=== PATIENT | male | born 1940 | race Caucasian/White ===

== ENCOUNTER 2021-05-07 13:11 | Inpatient (IN) | payer OTHER, SELFPAY ==
--- NOTE | ~2021-05-07 | CT_ITS ---
EXAMINATION: CT HEAD WITHOUT CONTRAST CLINICAL INFORMATION: Change in mental status COMPARISON: None. TECHNIQUE: Contiguous axial imaging was performed from the skull base to vertex without intravenous contrast. This CT examination was performed using dose optimization techniques as appropriate, variously including the following: * Automated exposure control * Adjustment of mA and/or kV according to patient size (this includes techniques or standardized protocols for targeted exams where dose is matched to indication/reason for exam; i.e. extremities or head) Use of iterative reconstruction technique DLP: 1044 mGy-cm. FINDINGS: There is no evidence of acute intracranial hemorrhage or territorial infarction. No abnormal mass effect or midline shift is seen. Calder[place] to white matter differentiation is well preserved. No extra-axial fluid collections are identified. No hydrocephalus. Proportional prominence of the ventricles and sulcal spaces is consistent with mild volume loss. Patchy periventricular and deep white matter hypoattenuation is consistent with mild small vessel ischemic changes. The osseous structures and soft tissues are normal. Mild mucoperiosteal thickening of both maxillary sinuses. The mastoid air cells and visualized portions of the paranasal sinuses are otherwise well aerated. CT/CT head/brain wo con IMPRESSION: No acute intracranial pathology. Mild chronic volume loss with small vessel ischemic change.
--- NOTE | 2021-05-07 13:29 | ECG_ITS ---
Test Reason : SI ATTEMPT Blood Pressure : / mmHG Vent. Rate : 099 BPM Atrial Rate : 099 BPM P-R Int : 156 ms QRS Dur : 080 ms QT Int : 346 ms P-R-T Axes : 026 -19 037 degrees QTc Int : 444 ms Sinus rhythm with Premature atrial complexes Minimal voltage criteria for LVH, may be normal variant ( R in aVL ) RSR' or QR pattern in V1 suggests right ventricular conduction delay Left axis deviation Abnormal ECG No previous ECGs available Referred By: Kathy Jensen Electronically Signed By:CORBIN GARCIA MD
--- NOTE | 2021-05-07 13:31 | ED_ITS ---
HPI - Psych General Chief Complaint: Psychiatric Symptoms Stated Complaint: CRISIS, CUT WRISTS Time Seen by Provider: 05/07/21 13:29 Source: patient and EMS Mode of arrival: EMS Limitations: other (agitation) History of Present Illness MD complaint: suicidal ideation, feels depressed and other (cut wrists with spinner box) Onset (ago): unknown Duration: getting worse History of same: Yes Relieving factors: none Exacerbating factors: none Context: significant life stressor Associated psychiatric symptoms: depression and suicidal ideation Associated symptoms: denies other symptoms Treatments prior to arrival: none If self harm: admits thoughts of self harm, has plan and has acted on plan Details of plan: used spinner box to slit wrists I did it wrong. I am so stupid. Let me out of here and I will get it right next time I will cut myself good or I will jump off of a bridge. My life is shit and I will kill myself. Related Data Home Medications Medication Instructions Recorded Confirmed terazosin 5 mg capsule 5 mg PO BEDTIME 05/07/21 05/07/21 trazodone 100 mg tablet 100 mg PO BEDTIME 05/07/21 05/07/21 Allergies Allergy/AdvReac Type Severity Reaction Status Date / Time Unable to Assess Allergy Verified 05/07/21 13:29 Review of Systems Review of Systems: Constitutional : No Fever, No Chills ENT/Mouth : No Ear Pain, No Nasal Congestion, No sore throat Eyes: No Eye Pain, No Swelling, No Redness Cardiovascular : No Chest Pain, No SOB Respiratory : No Cough, No Sputum, No Dyspnea Gastrointestinal : No Nausea, No Vomiting, No Diarrhea, No Hematochezia, No Melena Genitourinary : No Dysuria, No Urinary Frequency, No Hematuria Musculoskeletal : No Myalgias Skin : No Skin Lesions, No rash Neuro : No Weakness, No Numbness, No Paresthesias, No Dizziness, No Headache Psych : positive Anxiety, positive Depression, positive SI no HI Heme/Lymph: No Lymphadenopathy Endocrine : No Polyuria, No Polydipsia All other systems reviewed and are negative [facility] Past Medical History Medical History (Updated 05/07/21 @ 13:49 by Kathy Jensen DO) Depression Social History Social History (Updated 05/07/21 @ 13:40 by Kathy Jensen DO) Patient Tobacco Use Status: Tobacco use Unknown Advance Directives: No Advance Directives Information Provided: No Physical Exam Vital Signs: Vital Signs: Last Vital Signs Pulse 92 05/07/21 13:45 Resp 20 05/07/21 13:45 BP 187/83 H 05/07/21 13:45 Pulse Ox 99 05/07/21 13:45 Body Mass Index 20.0 Appearance: Alert. Oriented X3. Mild acute distress. Anxious yelling out I want to , just let me . Eyes: Pupils equal, round and reactive to light. ENT: Pharynx normal. Neck: Normal inspection. Neck supple. CVS: Normal heart rate and rhythm. Pulses normal. Respiratory: No respiratory distress. Breath sounds normal. Abdomen: Soft and non-tender. Skin: Skin warm and dry. Normal skin color. Normal skin turgor. Extremities: No lower extremity edema. bilateral wrists macerated superficial abrasions several - bilateral radial pulses intact Neuro: Oriented X 3. No motor deficit. No sensory deficit. CN 2-12 intact Psych: very upset, positive SI - I will kill myself Course Course Course Narrative: Physician observation started at 404pm Patient placed in physician observation because the patient needed more time to go inpatient and is a bedsearch; he is a section 12. At the time observation was started the paul reyes's vitals were stable, patient is alert and oriented but slightly agitated, Neuro: nonfocal, CV RRR, Lungs clear MDM - Psych MDM Narrative Medical decision making narrative: 80 yo male with depression ?BPH he notes he was on lexapro and trazodone but took himself off I'm not sure when - EMS thinks his brother called 911 he reports he is going to as his life is shit and he wants to . He messed up this time and will do it right next time given the chance. At this time will medically clear him - his lacerations are too macerated for stitches will steri strip and update Tdap. Section 12 signed by me. CARE team ordered and planned admit Lab Data Result diagrams: 05/07/21 14:24 05/07/21 14:24 Labs: Lab Results 05/07/21 05/07/21 05/07/21 Range/Units 14:24 14:24 14:24 WBC 6.1 (4.8-10.8) X10*3/uL RBC 3.88 L (4.60-5.80) X10*6/uL Hgb 12.9 L (14.0-18.0) g/dl Hct 36.1 L (42.0-52.0) % MCV 93.0 (80.0-98.0) fL MCH 33.2 H (27.0-33.0) pg MCHC 35.7 (31.0-36.0) g/dl RDW 12.4 (11.0-16.0) % Plt Count 152 L (160-400) X10*3/uL MPV 9.0 L (9.4-12.4) fL Immature Gran % (Auto) 0.2 (0.0-0.4) % Neut % (Auto) 68.9 (45-73) % Lymph % (Auto) 18.9 L (20-40) % [place] % (Auto) 11.3 H (2-11) % Eos % (Auto) 0.2 (0-4) % Baso % (Auto) 0.5 (0-2) % Lymph # (Auto) 1.2 (1.2-4.9) X10*3/uL [place] # (Auto) 0.7 (0.1-1.2) X10*3/uL Eos # (Auto) 0.0 (0.0-0.4) X10*3/uL Baso # (Auto) 0.0 (0.0-0.2) X10*3/uL Abs Immat Gran (auto) 0.01 (0.00-0.03) X10*3/uL Absolute Neuts (auto) 4.2 (2.0-8.3) x10*3/uL Absolute Nucleated RBC 0.000 (0.0-0.012) X10*3/uL Nucleated RBC % (auto) 0.0 (0.0-0.2) /100WBC Sodium 133 L (135-145) mmol/L Potassium 3.9 (3.3-5.1) mmol/L Chloride 102 (96-108) mmol/L Carbon Dioxide 23 (22-29) mmol/L Anion Gap 12 (12-20) BUN 12 (9-16) mg/dL Creatinine 1.01 (0.5-1.4) mg/dL Estim Creat Clear Calc 44.1 Estimated GFR > 60 Random Glucose 98 (60-115) mg/dL Calcium 9.6 (8.4-10.2) mg/dL Magnesium 2.1 (1.6-2.6) mg/dL Total Bilirubin 1.5 H (0.0-1.0) mg/dL Direct Bilirubin 0.6 H (0.0-0.5) mg/dL AST 19 (5-37) U/L ALT 17 (0-40) U/L Alkaline Phosphatase 75 (39-117) U/L Total Protein 6.6 (6.5-8.0) g/dL Albumin 4.1 (3.5-5.0) g/dL TSH 1.40 (0.32-4.0) uIU/mL Urine Color Urine Appearance Urine pH (5.0-8.0) Ur Specific [place] (1.005-1.025) Urine Protein (NEG-TRACE) MG/DL Urine Glucose (UA) (NEG) MG/DL Urine Ketones (NEG) MG/DL Urine Blood (NEG) Urine Nitrite (NEG) Ur Leukocyte Esterase (NEG) Salicylates < 5.0 L (15-30) mg/dL Urine Opiates Screen (Not Detect) Urine Fentanyl Screen (Not Detect) Acetaminophen < 1 (<30) mcg/mL Ur Barbiturates Screen (Not Detect) Ur Phencyclidine Scrn (Not Detect) Ur Amphetamines Screen (Not Detect) U Benzodiazepines Scrn (Not Detect) Urine Cocaine Screen (Not Detect) U Marijuana (THC) Screen (Not Detect) Ethyl Alcohol < 10 mg/dL COVID-19 ([facility]) (Negative) COVID-19 Clin Com 05/07/21 05/07/21 05/07/21 Range/Units 14:25 14:51 14:51 WBC (4.8-10.8) X10*3/uL RBC (4.60-5.80) X10*6/uL Hgb (14.0-18.0) g/dl Hct (42.0-52.0) % MCV (80.0-98.0) fL MCH (27.0-33.0) pg MCHC (31.0-36.0) g/dl RDW (11.0-16.0) % Plt Count (160-400) X10*3/uL MPV (9.4-12.4) fL Immature Gran % (Auto) (0.0-0.4) % Neut % (Auto) (45-73) % Lymph % (Auto) (20-40) % [place] % (Auto) (2-11) % Eos % (Auto) (0-4) % Baso % (Auto) (0-2) % Lymph # (Auto) (1.2-4.9) X10*3/uL [place] # (Auto) (0.1-1.2) X10*3/uL Eos # (Auto) (0.0-0.4) X10*3/uL Baso # (Auto) (0.0-0.2) X10*3/uL Abs Immat Gran (auto) (0.00-0.03) X10*3/uL Absolute Neuts (auto) (2.0-8.3) x10*3/uL Absolute Nucleated RBC (0.0-0.012) X10*3/uL Nucleated RBC % (auto) (0.0-0.2) /100WBC Sodium (135-145) mmol/L Potassium (3.3-5.1) mmol/L Chloride (96-108) mmol/L Carbon Dioxide (22-29) mmol/L Anion Gap (12-20) BUN (9-16) mg/dL Creatinine (0.5-1.4) mg/dL Estim Creat Clear Calc Estimated GFR Random Glucose (60-115) mg/dL Calcium (8.4-10.2) mg/dL Magnesium (1.6-2.6) mg/dL Total Bilirubin (0.0-1.0) mg/dL Direct Bilirubin (0.0-0.5) mg/dL AST (5-37) U/L ALT (0-40) U/L Alkaline Phosphatase (39-117) U/L Total Protein (6.5-8.0) g/dL Albumin (3.5-5.0) g/dL TSH (0.32-4.0) uIU/mL Urine Color YELLOW Urine Appearance CLOUDY Urine pH 8.5 H (5.0-8.0) Ur Specific [place] 1.020 (1.005-1.025) Urine Protein TRACE (NEG-TRACE) MG/DL Urine Glucose (UA) NEG (NEG) MG/DL Urine Ketones 5 (NEG) MG/DL Urine Blood NEG (NEG) Urine Nitrite NEG (NEG) Ur Leukocyte Esterase NEG (NEG) Salicylates (15-30) mg/dL Urine Opiates Screen Not Detected (Not Detect) Urine Fentanyl Screen Not Detected (Not Detect) Acetaminophen (<30) mcg/mL Ur Barbiturates Screen Not Detected (Not Detect) Ur Phencyclidine Scrn Not Detected (Not Detect) Ur Amphetamines Screen Not Detected (Not Detect) U Benzodiazepines Scrn Not Detected (Not Detect) Urine Cocaine Screen Not Detected (Not Detect) U Marijuana (THC) Screen Not Detected (Not Detect) Ethyl Alcohol mg/dL COVID-19 ([facility]) Negative (Negative) COVID-19 Clin Com See Note ECG Data Attestation: I personally reviewed and interpreted this ECG as follows: ECG interpretation date: 05/07/21 ECG interpretation time: 14:42 Interpretation: Rate: 99 Rhythm: NSR [place]: left, LVH Normal P waves. Normal BENJAMÍN. Normal QRS complex. ST T wave : normal no DARLENE qTC: normal prior studies: no acute ischemia The study has been interpreted contemporaneously by me. . Discharge Plan Discharge Clinical Impression: Depression with suicidal ideation Laceration of wrist Qualifiers: Encounter type: initial encounter Laterality: unspecified laterality Qualified Code(s): S61.519A - Laceration without foreign body of unspecified wrist, initial encounter Patient Disposition: Admitted As Inpatient
[2021-05-07 13:45] VITALS: BP 187/83; PULSE 92; RESP 20; O2SAT 99
[2021-05-07] MEDS: Diphth,Pertus(ACell),Tet Adult 0.5 ML SYRINGE IM (13:56)
[2021-05-07 14:31] LABS: Basophils Percent Auto 0.5 % (0-2); Eosinophils Percent Auto 0.2 % (0-4); Hematocrit 36.1 % (42.0-52.0); Hemoglobin 12.9 g/dl (14.0-18.0); Imm Gran Abs Auto 0.01 X10*3/uL (0.00-0.03); Imm Gran Pct Auto 0.2 % (0.0-0.4); Lymphocytes Absolute Auto 1.2 X10*3/uL (1.2-4.9); Lymphocytes Percent Auto 18.9 % (20-40); MANUAL DIFF FLAG NO; Mean Corpuscular HGB Conc 35.7 g/dl (31.0-36.0); Mean Corpuscular Hemoglobin 33.2 pg (27.0-33.0); Monocytes Absolute Auto 0.7 X10*3/uL (0.1-1.2); Monocytes Percent Auto 11.3 % (2-11); Neutrophils Absolute Auto 4.2 x10*3/uL (2.0-8.3); Neutrophils Percent Auto 68.9 % (45-73); Platelet Count 152 X10*3/uL (160-400); Red Blood Count 3.88 X10*6/uL (4.60-5.80); Red Cell Distribution Width 12.4 % (11.0-16.0); White Blood Count 6.1 X10*3/uL (4.8-10.8)
[2021-05-07 14:43] LABS: Ethanol < 10 mg/dL
[2021-05-07 14:46] LABS: Acetaminophen LAB < 1 mcg/mL (<30); Alanine Aminotransferase 17 U/L (0-40); Albumin Level 4.1 g/dL (3.5-5.0); Alkaline Phosphatase 75 U/L (39-117); Anion Gap 12 (12-20); Aspartate Amino Transferase 19 U/L (5-37); Bilirubin Direct 0.6 mg/dL (0.0-0.5); Bilirubin Total 1.5 mg/dL (0.0-1.0); Blood Urea Nitrogen 12 mg/dL (9-16); Calcium 9.6 mg/dL (8.4-10.2); Carbon Dioxide 23 mmol/L (22-29); Chloride 102 mmol/L (96-108); Creatinine Clr Calc Pharmacy 44.1; Estimated Glomerular Filt Rate > 60; Glucose Random 98 mg/dL (60-115); Magnesium 2.1 mg/dL (1.6-2.6); Potassium 3.9 mmol/L (3.3-5.1); Salicylate < 5.0 mg/dL (15-30); Sodium 133 mmol/L (135-145); Total Protein 6.6 g/dL (6.5-8.0)
--- NOTE | 2021-05-07 14:51 | PHA.MEDREC ---
med rec complete. Patient was previously on escitalopram 5 mg, patient has self stopped this med about 2 weeks ago Pharmacy Consult ? Medication Reconciliation Pharmacy has completed the medication reconciliation.
[2021-05-07 14:55] LABS: COVID-19 Test Negative (Negative)
[2021-05-07 14:58] LABS: Appearance Urine CLOUDY; Color Urine YELLOW; Glucose Urine UA NEG (NEG); Leukocyte Esterase Urine NEG (NEG); Nitrite Urine NEG (NEG); PH 8.5 (5.0-8.0); Urine Blood NEG (NEG); Urine Ketones 5 MG/DL (NEG); Urine Protein TRACE MG/DL (NEG-TRACE)
[2021-05-07 15:16] LABS: Amphetamine Screen Urine Not Detected (Not Detect); Barbiturates, Urine Not Detected (Not Detect); Benzodiazepines Screen Urine Not Detected (Not Detect); Cannabinoid Screen Urine Not Detected (Not Detect); Cocaine Screen Urine Not Detected (Not Detect); Fentanyl, urine Not Detected (Not Detect); Opiate Screen Urine Not Detected (Not Detect); Phencyclidine Screen Urine Not Detected (Not Detect)
[2021-05-07] MEDS: LORazepam 0.5 MG TABLET PO (15:21)
[2021-05-07 16:23] VITALS: BP 139/72; PULSE 85; RESP 20; O2SAT 98
[2021-05-07] MEDS: Melatonin 3 MG TABLET 6 MG PO (20:20)
--- NOTE | 2021-05-07 21:39 | PC.NURSE ---
Patient resting comfortably in bed no c/o pain. Will contiue to monitor.
--- NOTE | 2021-05-07 22:08 | MHC.CARE ---
CARE Team conducted an exhaustive geriatric bedsearch with no placement found. CARE Team will continue searching for placement.
--- NOTE | 2021-05-08 01:55 | PC.NURSE ---
Patient resting comfortably in bed awaiting [facility]ero[facility]-psych placement
--- NOTE | 2021-05-08 07:16 | PC.NURSE ---
report taken from dora strong pt here for si w attempt to cut wrist, seen by care team, awaiting [facility] psych bed search. pt appears to be sleeping att, rr even/unlabored. awaiting inpt bed. wctm for dc needs.
[2021-05-08 09:52] VITALS: BP 130/76; PULSE 95; RESP 18; TEMP 36.9; O2SAT 98
[2021-05-08 20:19] VITALS: BP 145/94; PULSE 89
[2021-05-08] MEDS: Doxazosin Mesylate 2 MG TABLET 4 MG PO (20:19)
[2021-05-08 20:22] VITALS: BP 145/94; PULSE 75; RESP 17; TEMP 37.1; O2SAT 98
[2021-05-08] MEDS: QUEtiapine Fumarate 25 MG TABLET PO (20:47)
--- NOTE | 2021-05-08 20:53 | PC.NURSE ---
pt is worried about his medication for hs. pt gets upset and worries easy when he needs to focus on a subject. pt treated with his exchange for terozsin and seroquil for sleep. pt skin warm dry, stead gait. back to bed and needs at bedside and pt is visable on the monitor.
[2021-05-09 03:52] VITALS: BP 126/85; PULSE 103; RESP 16; TEMP 36.8; O2SAT 94
[2021-05-09 12:32] VITALS: BP 138/73; PULSE 85; RESP 17; TEMP 37; O2SAT 98
--- NOTE | 2021-05-09 13:52 | PC.NURSE ---
1215. Pt getting up for the first time since this RN arrival at 7am. Skin PWD except for lacerations on ludivina forearms. Dressings taken down. Lacs are healing well, steristrips intact. Pt repeating SI sentiments I can't cope. I don't have anything to live for. Pt encouraged to take PO fluids and eat something. Getting out of bed to with steady gait and eating almost 100% of meal.
[2021-05-09 15:59] VITALS: BP 135/84; PULSE 77; TEMP 36.7; O2SAT 99
--- NOTE | 2021-05-09 18:27 | PC.NURSE ---
Ambulatory to BR. Steady on feet. Skin pWd. ate 90% of meal.
[2021-05-09] MEDS: QUEtiapine Fumarate 25 MG TABLET PO (20:12)
[2021-05-10 03:16] VITALS: BP 118/67; PULSE 85; RESP 16; TEMP 36.7; O2SAT 96
--- NOTE | 2021-05-10 06:23 | PC.NURSE ---
Patient slept through the night, no distress observed/reported, behavior at time can be loud, med rec completed, pending provider's approval, disposition per care team is section 12 inpatient bed search, VSS, will continue to monitor.
--- NOTE | 2021-05-10 07:29 | PC.NURSE ---
patient appears to remain at rest at present respirations are even and unlabored, patient appears in no distress
[2021-05-10 08:06] VITALS: BP 128/78; PULSE 82; RESP 15; TEMP 36.8; O2SAT 97
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
[2021-05-10] MEDS: QUEtiapine Fumarate 50 MG TABLET PO (20:43)
[2021-05-11 03:35] VITALS: BP 121/72; PULSE 83; RESP 15; TEMP 36.4; O2SAT 97
--- NOTE | 2021-05-11 06:12 | PC.NURSE ---
Patient slept through the night, no distress observed/reported, behavior appropriate, medication compliant, patient's disposition is section 12 inpatient bed search per care team, VSS, will continue to monitor.
--- NOTE | 2021-05-11 07:18 | PC.NURSE ---
patient appears to remain asleep at present respirations are even and unlabored, patient appears in no distress
--- NOTE | 2021-05-11 13:08 | MHC.CARE ---
[facility]. Call to confirm eligibility and in-network facilities, spoke to Radha. Will be covered in full by any facility providing care, has NO preferred or select network. Form required for inpatient admission to be filled out by the accepting hospital.
--- NOTE | 2021-05-11 16:43 | MHC.CARE ---
CARE Team faxed [facility] Notification for pt looking for placement.
[2021-05-11 17:05] VITALS: BP 128/76; PULSE 75; RESP 18; TEMP 36.3; O2SAT 99
[2021-05-11] MEDS: QUEtiapine Fumarate 100 MG TABLET PO (20:07)
[2021-05-12 06:13] VITALS: BP 147/71; PULSE 79; RESP 16; TEMP 36.6; O2SAT 98
--- NOTE | 2021-05-12 06:15 | PC.NURSE ---
Patient slept through the night, no distress observed/reported, behavior calm, isolated, and non-concerning, medication compliant, VS at baseline, disposition per care team is section 12 inpatient bed search, will continue to monitor.
--- NOTE | 2021-05-12 10:22 | PC.NURSE ---
PT OOB TO BR EARLIER. ALERT AND ORIENTED. TO GO TO S1 LATER TODAY.
--- NOTE | 2021-05-12 15:44 | PC.NURSE ---
emil w/RN on S1 pt needs repeat covid test INTERACTIVE DESIGNER on S1 d/t last swab being done on 05/07
--- NOTE | 2021-05-12 15:59 | MHC.CARE ---
1500 Call from [facility], they received notification that patient will be admitted to the unit asking for confirmation, informed patient is in the ED and will be admitted later today.
[2021-05-12 16:10] LABS: COVID-19 Test Negative (Negative)
[2021-05-12 16:45] VITALS: BP 133/84; PULSE 95; RESP 16; TEMP 36.6; O2SAT 98
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
[2021-05-12 19:49] VITALS: BP 131/81; PULSE 96; RESP 19; TEMP 37; O2SAT 96
[2021-05-12] MEDS: QUEtiapine Fumarate 100 MG TABLET PO (20:00)
[2021-05-13 06:00] VITALS: BP 155/81; PULSE 69; RESP 18; TEMP 36.6; O2SAT 98
[2021-05-13 07:00] VITALS: BMI 21.2
[2021-05-13 07:08] LABS: MANUAL DIFF FLAG NO
[2021-05-13 07:13] LABS: Basophils Percent Auto 0.7 % (0-2); Eosinophils Absolute Auto 0.2 X10*3/uL (0.0-0.4); Eosinophils Percent Auto 3.9 % (0-4); Hematocrit 34.4 % (42.0-52.0); Hemoglobin 11.9 g/dl (14.0-18.0); Imm Gran Abs Auto 0.01 X10*3/uL (0.00-0.03); Imm Gran Pct Auto 0.2 % (0.0-0.4); Lymphocytes Absolute Auto 1.9 X10*3/uL (1.2-4.9); Lymphocytes Percent Auto 35.7 % (20-40); Mean Corpuscular HGB Conc 34.6 g/dl (31.0-36.0); Mean Corpuscular Hemoglobin 33.5 pg (27.0-33.0); Mean Corpuscular Volume 96.9 fL (80.0-98.0); Mean Platelet Volume 9.2 fL (9.4-12.4); Monocytes Absolute Auto 0.7 X10*3/uL (0.1-1.2); Monocytes Percent Auto 13.3 % (2-11); Neutrophils Absolute Auto 2.5 x10*3/uL (2.0-8.3); Neutrophils Percent Auto 46.2 % (45-73); Platelet Count 142 X10*3/uL (160-400); Red Blood Count 3.55 X10*6/uL (4.60-5.80); Red Cell Distribution Width 12.6 % (11.0-16.0); White Blood Count 5.4 X10*3/uL (4.8-10.8)
[2021-05-13 07:28] LABS: Alanine Aminotransferase 14 U/L (0-40); Albumin Level 3.5 g/dL (3.5-5.0); Alkaline Phosphatase 72 U/L (39-117); Anion Gap 9 (12-20); Aspartate Amino Transferase 14 U/L (5-37); Bilirubin Total 0.9 mg/dL (0.0-1.0); Blood Urea Nitrogen 18 mg/dL (9-16); Calcium 9.4 mg/dL (8.4-10.2); Carbon Dioxide 27 mmol/L (22-29); Chloride 108 mmol/L (96-108); Cholesterol 150 mg/dL; Creatinine Clr Calc Pharmacy 43.3; Estimated Glomerular Filt Rate > 60; Glucose Fasting 92 mg/dL (60-99); HDL Cholesterol 45 mg/dL; LDL Cholesterol Calculated 97 mg/dl; Magnesium 2.1 mg/dL (1.6-2.6); Potassium 4.3 mmol/L (3.3-5.1); Sodium 140 mmol/L (135-145); Total Protein 5.8 g/dL (6.5-8.0); Triglycerides 42 mg/dL
[2021-05-13 07:48] LABS: Free T4 (Free Thyroxine) 1.26 ng/dL (0.71-1.85); Thyroid Stimulating Hormone 0.78 uIU/mL (0.32-4.0)
[2021-05-13 08:02] LABS: Estimated Average Glucose 97 mg/dL
[2021-05-13 08:54] LABS: Folate 15.8 ng/mL (> or = 4.0); Vitamin B12 441 pg/mL (200-900)
[2021-05-13 16:04] VITALS: BP 175/93; PULSE 85
--- NOTE | 2021-05-13 16:14 | P.HPPS_ITS ---
HPI Date of Service: 05/13/21 Chief Complaint: depression,SI Sources of Information: patient interviewed, chart reviewed and crisis/core team assessment reviewed HPI Subjective Notes: Kaur Warning and Conditional Voluntary Narrative: The patient is an 80-year-old male, single, with no children, retired, living by himself with limited social support referred from the emergency room after a suicidal ideation. The patient reported that he has been depressed for the last years but his symptoms worsened after COVID-19 was started. He stated that his primary care physician has started him on September 2020 on trazodone due to insomnia and later in January 2021 he was more depressed and needed to started on Lexapro. He was referred to an outpatient clinic [facility] and he tried Lexapro with side effects. He took himself off the medication in March. The patient stated that in the last weeks his depression worsened with depressed mood, anhedonia, lack of energy, feelings of hopelessness, feelings of worthlessness, suicidal ideation, insomnia and poor appetite. She started feeling suicidal and he decided to going to a hot tub and cut his veins. The he was unsuccessful and he called his brother who he called 911 and he was rushed to the emergency room. Since he was suicidal now with a plan to hang himself he was transferring to this facility for psychiatric stabilization. During the interview, the patient adamantly denies psychotic symptoms, manic symptoms or any other delusions. He was able to contract for safety in the facility Past Psychiatric History: -Has OP services at [facility]. -Remote hx of being treated for PTSD years ago -Past med trials: Remeron (did not like it), trazadone (intermittent use, initially helpful but stopped working, ?tossing and turning?), lexapro (felt ?shaky,? unable to tolerate it after taking it for a few days non- consecutively), melatonin (lack of benefit over time). Medical Evaluation Reviewed: Yes [facility] Medical History Depression Family History: Denies Social History: -Single. Has 4 siblings. Parents are . Lives in parent?s home. -Retired. 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 Trauma History: The patient was deployed to [place] unclear of PTSD due to combat Diagnostics Vital Signs (24Hr): Vital Signs - 24 hr 05/12/21 16:45 05/12/21 19:49 05/13/21 06:00 Temperature 97.8 F 98.6 F 97.9 F Pulse Rate 95 96 69 Respiratory Rate 16 19 18 Blood Pressure 133/84 131/81 155/81 H Pulse Oximetry 98 96 98 05/13/21 16:04 Temperature Pulse Rate 85 Respiratory Rate Blood Pressure 175/93 H Pulse Oximetry BMI result Body Mass Index 20.0 Labs Results: 05/13/21 07:03 05/13/21 07:03 Labs: Laboratory Results - last 48 hr 05/12/21 05/13/21 05/13/21 15:48 07:03 07:03 WBC 5.4 RBC 3.55 L Hgb 11.9 L Hct 34.4 L MCV 96.9 MCH 33.5 H MCHC 34.6 RDW 12.6 Plt Count 142 L MPV 9.2 L Immature Gran % (Auto) 0.2 Neut % (Auto) 46.2 Lymph % (Auto) 35.7 Gilliam % (Auto) 13.3 H Eos % (Auto) 3.9 Baso % (Auto) 0.7 Lymph # (Auto) 1.9 Gilliam # (Auto) 0.7 Eos # (Auto) 0.2 Baso # (Auto) 0.0 Abs Immat Gran (auto) 0.01 Absolute Neuts (auto) 2.5 Absolute Nucleated RBC 0.000 Nucleated RBC % (auto) 0.0 Sodium 140 Potassium 4.3 Chloride 108 Carbon Dioxide 27 Anion Gap 9 L BUN 18 H Creatinine 1.03 Estim Creat Clear Calc 43.3 Estimated GFR > 60 Fasting Glucose 92 Estimat Average Glucose Hemoglobin A1c % Calcium 9.4 Magnesium 2.1 Total Bilirubin 0.9 AST 14 ALT 14 Alkaline Phosphatase 72 Total Protein 5.8 L Albumin 3.5 Triglycerides 42 Cholesterol 150 LDL Cholesterol, Calc 97 HDL Cholesterol 45 Vitamin B12 Folate TSH 0.78 Free T4 1.26 COVID-19 ([facility]) Negative COVID-19 Clin Com See Note 05/13/21 05/13/21 07:03 07:03 WBC RBC Hgb Hct MCV MCH MCHC RDW Plt Count MPV Immature Gran % (Auto) Neut % (Auto) Lymph % (Auto) Gilliam % (Auto) Eos % (Auto) Baso % (Auto) Lymph # (Auto) Gilliam # (Auto) Eos # (Auto) Baso # (Auto) Abs Immat Gran (auto) Absolute Neuts (auto) Absolute Nucleated RBC Nucleated RBC % (auto) Sodium Potassium Chloride Carbon Dioxide Anion Gap BUN Creatinine Estim Creat Clear Calc Estimated GFR Fasting Glucose Estimat Average Glucose 97 Hemoglobin A1c % 5.0 Calcium Magnesium Total Bilirubin AST ALT Alkaline Phosphatase Total Protein Albumin Triglycerides Cholesterol LDL Cholesterol, Calc HDL Cholesterol Vitamin B12 441 Folate 15.8 TSH Free T4 COVID-19 ([facility]) COVID-19 Clin Com Meds/Allergies Meds Home Medications Acetaminophen (Acetaminophen 325 Mg Tablet) 650 mg PO Q6H PRN PRN Reason: Headache/Pain Mild Scale (1-3) Al Hydroxide/Mg Hydroxide (Magnesium Hydrox/Alum Hydrox 30 Ml Oral.Susp) 30 ml PO Q6H PRN PRN Reason: Heartburn/Nausea Hydroxyzine HCl (Hydroxyzine Hcl 25 Mg Tablet) 25 mg PO Q6H PRN PRN Reason: Anxiety Magnesium Hydroxide (Milk Of Magnesia 30 Ml Oral.Susp) 30 ml PO DAILY PRN PRN Reason: Constipation Patient Own (Terazosin 5 Mg) 1 each PO DAILY [facility] Last Admin: 05/13/21 09:12 Dose: Not Given Documented by: Quetiapine Fumarate (Quetiapine Fumarate 100 Mg Tablet) 100 mg PO BEDTIME [facility] Last Admin: 05/12/21 20:00 Dose: 100 mg Documented by: Trazodone HCl (Trazodone Hcl 50 Mg Tablet) 50 mg PO BEDTIME PRN PRN Reason: Insomnia Allergies Allergies Allergy/AdvReac Type Severity Reaction Status Date / Time No Known Allergies Allergy Verified 05/10/21 08:40 Mental Status Exam Mental Status Exam Patient Appearance: Well Grooomed Patient Orientation: Person, Place, Time and Situation Level of Consciousness: Awake and Alert Patient Behavior: Cooperative Mood Description: Depressed Affect Description: Constricted Patient Cognition Impaired: No Ability to Follow Directions: Good Speech Pattern: Clear Hallucinations: None Delusions: Not Present Thought Process: Linear Thought Content: positive for Circumstantial Depressive Symptoms: Increased Anxiety, Insomnia, Diff. Making Decisions, Increased Irritability, Feelings of Worthlessness, Feelings of Guilt and Thoughts of /Suicide Judgement: Fair Assessment & Plan Assessment & Plan (1) MDD (major depressive disorder), recurrent severe, without psychosis: Status: Acute Code(s): F33.2 - Major depressive disorder, recurrent severe without psychotic features Assessment and Plan: The patient is an elderly male with a long history of anxiety and depression that worsened in the last months due to noncompliance to Lexapro. The patient stop Lexapro due to side effects. The patient has active suicidal ideation he needs inpatient level of care at this moment. Plan 1. Gather collateral information. 2. We discussed risks, benefits, side-effects and alternatives to he agreed to start nortriptyline 10 mg p.o. q.h.s. to target depression and insomnia. 3. Continue Seroquel 100 mg p.o. q.h.s. to target insomnia and mood lability. 4. Eli globe in A1c, lipid profile and other blood work will be ordered for tomorrow morning. 5. Reassessment with results. Reason for continued inpatient stay Substantial Risk for: harm to self, inability to function, rapid decompensation and med/psych decompensation
[2021-05-13 19:56] VITALS: BP 123/65; PULSE 84; RESP 17; TEMP 36.1
[2021-05-13] MEDS: traZODone HCL 50 MG TABLET PO (20:56)
[2021-05-13] MEDS: QUEtiapine Fumarate 100 MG TABLET PO (20:56)
[2021-05-14 06:00] VITALS: BP 135/80; PULSE 80; RESP 16; TEMP 36.6; O2SAT 98
--- NOTE | 2021-05-14 13:32 | MHC.CLN ---
F/U VISITED WITH PATIENT. SNACKING AFTER LUNCH. REPORTS GOOD APPETITE. APPEARS WELL NOURISHED.
--- NOTE | 2021-05-14 14:08 | P.PNPSI_ITS ---
Subjective Subjective Date of Service: 05/14/21 Reason For Visit: depression,SI Subjective Notes: Conditional Voluntary Interim History: The nursing staff reported the patient slept poorly last night he took some trazodone but it did not work at all. His brother called and demanded to stop trazodone since it was not good for him . On interview, the patient admitted for sleep but he agreed to start Pamelor at night to target depression and insomnia. Mental Status Exam Mental Status Exam Patient Appearance: Well Grooomed Patient Orientation: Person Level of Consciousness: Awake Patient Behavior: Cooperative and Suspicious Mood Description: Depressed Affect Description: Constricted Patient Cognition Impaired: No Speech Pattern: Clear Memory Description: Intact Hallucinations: None Delusions: Not Present Thought Content: positive for Linear Depressive Symptoms: Increased Irritability, Difficulty Sleeping and Changes in Appetite Judgement: Fair Diagnostics Vital Signs (24Hr): Vital Signs - 24 hr 05/13/21 16:04 05/13/21 19:56 05/14/21 06:00 Temperature 97 F 97.9 F Pulse Rate 85 84 80 Respiratory Rate 17 16 Blood Pressure 175/93 H 123/65 135/80 Pulse Oximetry 98 BMI result Body Mass Index 20.0 Labs Results: 05/13/21 07:03 05/13/21 07:03 Labs: Laboratory Results - last 48 hr 05/12/21 05/13/21 05/13/21 15:48 07:03 07:03 WBC 5.4 RBC 3.55 L Hgb 11.9 L Hct 34.4 L MCV 96.9 MCH 33.5 H MCHC 34.6 RDW 12.6 Plt Count 142 L MPV 9.2 L Immature Gran % (Auto) 0.2 Neut % (Auto) 46.2 Lymph % (Auto) 35.7 [place] % (Auto) 13.3 H Eos % (Auto) 3.9 Baso % (Auto) 0.7 Lymph # (Auto) 1.9 [place] # (Auto) 0.7 Eos # (Auto) 0.2 Baso # (Auto) 0.0 Abs Immat Gran (auto) 0.01 Absolute Neuts (auto) 2.5 Absolute Nucleated RBC 0.000 Nucleated RBC % (auto) 0.0 Sodium 140 Potassium 4.3 Chloride 108 Carbon Dioxide 27 Anion Gap 9 L BUN 18 H Creatinine 1.03 Estim Creat Clear Calc 43.3 Estimated GFR > 60 Fasting Glucose 92 Estimat Average Glucose Hemoglobin A1c % Calcium 9.4 Magnesium 2.1 Total Bilirubin 0.9 AST 14 ALT 14 Alkaline Phosphatase 72 Total Protein 5.8 L Albumin 3.5 Triglycerides 42 Cholesterol 150 LDL Cholesterol, Calc 97 HDL Cholesterol 45 Vitamin B12 Folate TSH 0.78 Free T4 1.26 COVID-19 ([facility]) Negative COVID-19 Clin Com See Note 05/13/21 05/13/21 07:03 07:03 WBC RBC Hgb Hct MCV MCH MCHC RDW Plt Count MPV Immature Gran % (Auto) Neut % (Auto) Lymph % (Auto) [place] % (Auto) Eos % (Auto) Baso % (Auto) Lymph # (Auto) [place] # (Auto) Eos # (Auto) Baso # (Auto) Abs Immat Gran (auto) Absolute Neuts (auto) Absolute Nucleated RBC Nucleated RBC % (auto) Sodium Potassium Chloride Carbon Dioxide Anion Gap BUN Creatinine Estim Creat Clear Calc Estimated GFR Fasting Glucose Estimat Average Glucose 97 Hemoglobin A1c % 5.0 Calcium Magnesium Total Bilirubin AST ALT Alkaline Phosphatase Total Protein Albumin Triglycerides Cholesterol LDL Cholesterol, Calc HDL Cholesterol Vitamin B12 441 Folate 15.8 TSH Free T4 COVID-19 ([facility]) COVID-19 Clin Com Medications Medications Current Medications Acetaminophen (Acetaminophen 325 Mg Tablet) 650 mg PO Q6H PRN PRN Reason: Headache/Pain Mild Scale (1-3) Al Hydroxide/Mg Hydroxide (Magnesium Hydrox/Alum Hydrox 30 Ml Oral.Susp) 30 ml PO Q6H PRN PRN Reason: Heartburn/Nausea Hydroxyzine HCl (Hydroxyzine Hcl 25 Mg Tablet) 25 mg PO Q6H PRN PRN Reason: Anxiety Magnesium Hydroxide (Milk Of Magnesia 30 Ml Oral.Susp) 30 ml PO DAILY PRN PRN Reason: Constipation Patient Own (Terazosin 5 Mg) 1 each PO DAILY [facility] Last Admin: 05/14/21 10:16 Dose: Not Given Documented by: Nortriptyline HCl (Nortriptyline Hcl 10 Mg Capsule) 10 mg PO BEDTIME [facility] Quetiapine Fumarate (Quetiapine Fumarate 100 Mg Tablet) 100 mg PO BEDTIME [facility] Last Admin: 05/13/21 20:56 Dose: 100 mg Documented by: Allergies Allergies Allergy/AdvReac Type Severity Reaction Status Date / Time No Known Allergies Allergy Verified 05/10/21 08:40 Assessment & Plan Assessment & Plan (1) MDD (major depressive disorder), recurrent severe, without psychosis: Status: Acute Code(s): F33.2 - Major depressive disorder, recurrent severe without psychotic features Assessment and Plan: The patient is an elderly male with a long history of anxiety and depression that worsened in the last months due to noncompliance to Lexapro. The patient stop Lexapro due to side effects. The patient has active suicidal ideation he needs inpatient level of care at this moment. Plan 1. Gather collateral information. 2. We discussed risks, benefits, side-effects and alternatives to he agreed to start nortriptyline 10 mg p.o. q.h.s. to target depression and insomnia. 3. Continue Seroquel 100 mg p.o. q.h.s. to target insomnia and mood lability. 4. E hemoglobin A1c, lipid profile and other blood work will be ordered for tomorrow morning. 5. Reassessment with results. I spent minutes with the patient and/or on the patient floor today, greater than?50% of which was spent counseling/coordinating care. Reason for contiued inpatient stay Substantial Risk for: harm to self, inability to function, rapid decompensation and med/psych decompensation
[2021-05-14 18:00] VITALS: BP 113/74; PULSE 101; O2SAT 97
[2021-05-14] MEDS: Nortriptyline HCl 10 MG CAPSULE PO (20:16)
[2021-05-14] MEDS: QUEtiapine Fumarate 100 MG TABLET PO (20:16)
[2021-05-15 08:34] VITALS: BP 136/72; PULSE 98; RESP 16; TEMP 36.7; O2SAT 99
--- NOTE | 2021-05-15 13:59 | P.PNPSI_ITS ---
Subjective Subjective Date of Service: 05/15/21 Reason For Visit: depression,SI Subjective Notes: Conditional Voluntary Medical Problems Affecting Mental Status: No Interim History: Patient pleasant and engaged during interview. Reports kiley dalton depressed and anxious with intermittent hopelessness and thoughts of . No active SI. Talked about severe depression over the last year so with intermittent relief and suicide attempt preceding this admission. Talked about isolation, COVID, insomnia and also the of his bird that he had for 29 years. Sleep was better last night with nortriptyline and thankful for same. For a nonverbal and medications. Is a little brighter today as per staff. no psychosis. Reports feeling safe here, but that he has a long way to go mood wasserman, functioning etc. . Reports even taking a shower seems like a huge decision for him. Medication Compliance: Yes Side effects from medications: No Attending Groups: Yes Review of Systems Acute medical concerns: No Review of Systems Review of Systems Unremarkable Mental Status Exam Mental Status Exam Patient Appearance: Well Grooomed Patient Orientation: Person Level of Consciousness: Awake Patient Behavior: Appropriate Mood Description: Depressed Affect Description: Constricted Patient Cognition Impaired: No Ability to Follow Directions: Good Speech Pattern: Clear Memory Description: Intact Diagnostics Vital Signs (24Hr): Vital Signs - 24 hr 05/14/21 18:00 05/15/21 08:34 Temperature 98.0 F Pulse Rate 101 H 98 Respiratory Rate 16 Blood Pressure 113/74 136/72 Pulse Oximetry 97 99 BMI result Body Mass Index 20.0 Labs Results: 05/13/21 07:03 05/13/21 07:03 Medications Medications Current Medications Acetaminophen (Acetaminophen 325 Mg Tablet) 650 mg PO Q6H PRN PRN Reason: Headache/Pain Mild Scale (1-3) Al Hydroxide/Mg Hydroxide (Magnesium Hydrox/Alum Hydrox 30 Ml Oral.Susp) 30 ml PO Q6H PRN PRN Reason: Heartburn/Nausea Hydroxyzine HCl (Hydroxyzine Hcl 25 Mg Tablet) 25 mg PO Q6H PRN PRN Reason: Anxiety Magnesium Hydroxide (Milk Of Magnesia 30 Ml Oral.Susp) 30 ml PO DAILY PRN PRN Reason: Constipation Patient Own Med (Terazosin 5) 1 each PO DAILY@1830 [facility] Last Admin: 05/14/21 18:26 Dose: 1 each Documented by: Nortriptyline HCl (Nortriptyline Hcl 10 Mg Capsule) 10 mg PO BEDTIME [facility] Last Admin: 05/14/21 20:16 Dose: 10 mg Documented by: Psyllium Hydrophilic Mucilloid (Psyllium Seed 3.4 Gm Powd.Pack) 3.4 gm PO DAILY [facility] Last Admin: 05/15/21 07:58 Dose: 3.4 gm Documented by: Quetiapine Fumarate (Quetiapine Fumarate 100 Mg Tablet) 100 mg PO BEDTIME [facility] Last Admin: 05/14/21 20:16 Dose: 100 mg Documented by: Allergies Allergies Allergy/AdvReac Type Severity Reaction Status Date / Time No Known Allergies Allergy Verified 05/10/21 08:40 Assessment & Plan Assessment & Plan (1) MDD (major depressive disorder), recurrent severe, without psychosis: Status: Acute Code(s): F33.2 - Major depressive disorder, recurrent severe without psychotic features Assessment and Plan: The patient is an elderly male with a long history of anxiety and depression that worsened in the last months due to noncompliance to Lexapro. The patient stop Lexapro due to side effects. The patient has active suicidal ideation he needs inpatient level of care at this moment. Plan 1. Gather collateral information. 2. We discussed risks, benefits, side-effects and alternatives to he agreed to start nortriptyline 10 mg p.o. q.h.s. to target depression and insomnia. 3. Continue Seroquel 100 mg p.o. q.h.s. to target insomnia and mood lability. 4. E hemoglobin A1c, lipid profile and other blood work will be ordered for tomorrow morning. 5. Reassessment with results. 05/15/2021: No changes to primary team treatment plan and appears to be showing some response to current regimen with sleep I spent minutes with the patient and/or on the patient floor today, grea ter than?50% of which was spent counseling/coordinating care. Reason for contiued inpatient stay Substantial Risk for: harm to self
[2021-05-15 18:00] VITALS: BP 109/78; PULSE 81; TEMP 37.2; O2SAT 97
[2021-05-15] MEDS: Nortriptyline HCl 10 MG CAPSULE PO (20:10)
[2021-05-15] MEDS: QUEtiapine Fumarate 100 MG TABLET PO (20:10)
[2021-05-16 06:00] VITALS: BP 133/80; PULSE 99; RESP 16; TEMP 36.7; O2SAT 98
--- NOTE | 2021-05-16 10:34 | P.PNPSI_ITS ---
Subjective Subjective Date of Service: 05/16/21 Reason For Visit: depression,SI Subjective Notes: Conditional Voluntary Medical Problems Affecting Mental Status: No Interim History: Enaged and participating as per staff. Slept well. Still has anxiety and reports depression with intermittent hopelessness and thoughts of . No active SI. Sleep was better last night with nortriptyline and thankful for same and reports feeling less groggy today. Appetite good. Attending groups. . No psychosis. Reports feeling safe here, but that he has a long way to go mood wasserman, functioning etc. Hoping to shower today I think I can do it, its been 3 days . Medication Compliance: Yes Side effects from medications: No Attending Groups: Yes Review of Systems Review of Systems Unremarkable Mental Status Exam Mental Status Exam Patient Appearance: Well Grooomed Patient Orientation: Person Level of Consciousness: Awake Patient Behavior: Appropriate Mood Description: Depressed Affect Description: Constricted Patient Cognition Impaired: No Ability to Follow Directions: Good Speech Pattern: Clear Memory Description: Intact Hallucinations: None Delusions: Not Present Thought Process: Intact Thought Content: positive for Intact Diagnostics Vital Signs (24Hr): Vital Signs - 24 hr 05/15/21 18:00 05/16/21 06:00 Temperature 99.0 F 98.0 F Pulse Rate 81 99 Respiratory Rate 16 Blood Pressure 109/78 133/80 Pulse Oximetry 97 98 BMI result Body Mass Index 20.0 Labs Results: 05/13/21 07:03 05/13/21 07:03 Medications Medications Current Medications Acetaminophen (Acetaminophen 325 Mg Tablet) 650 mg PO Q6H PRN PRN Reason: Headache/Pain Mild Scale (1-3) Al Hydroxide/Mg Hydroxide (Magnesium Hydrox/Alum Hydrox 30 Ml Oral.Susp) 30 ml PO Q6H PRN PRN Reason: Heartburn/Nausea Hydroxyzine HCl (Hydroxyzine Hcl 25 Mg Tablet) 25 mg PO Q6H PRN PRN Reason: Anxiety Magnesium Hydroxide (Milk Of Magnesia 30 Ml Oral.Susp) 30 ml PO DAILY PRN PRN Reason: Constipation Patient Own Med (Terazosin 5) 1 each PO DAILY@1830 [facility]PL[facility] Last Admin: 05/15/21 17:20 Dose: 1 each Documented by: Nortriptyline HCl (Nortriptyline Hcl 10 Mg Capsule) 10 mg PO BEDTIME [facility] Last Admin: 05/15/21 20:10 Dose: 10 mg Documented by: Psyllium Hydrophilic Mucilloid (Psyllium Seed 3.4 Gm Powd.Pack) 3.4 gm PO DAILY [facility] Last Admin: 05/16/21 08:04 Dose: 3.4 gm Documented by: Quetiapine Fumarate (Quetiapine Fumarate 100 Mg Tablet) 100 mg PO BEDTIME [facility]PL[facility] Last Admin: 05/15/21 20:10 Dose: 100 mg Documented by: Allergies Allergies Allergy/AdvReac Type Severity Reaction Status Date / Time No Known Allergies Allergy Verified 05/10/21 08:40 Assessment & Plan Assessment & Plan (1) MDD (major depressive disorder), recurrent severe, without psychosis: Status: Acute Code(s): F33.2 - Major depressive disorder, recurrent severe without psychotic features Assessment and Plan: The patient is an elderly male with a long history of anxiety and depression that worsened in the last months due to noncompliance to Lexapro. The patient stop Lexapro due to side effects. The patient has active suicidal ideation he needs inpatient level of care at this moment. Plan 1. Gather collateral information. 2. We discussed risks, benefits, side-effects and alternatives to he agreed to start nortriptyline 10 mg p.o. q.h.s. to target depression and insomnia. 3. Continue Seroquel 100 mg p.o. q.h.s. to target insomnia and mood lability. 4. E hemoglobin A1c, lipid profile and other blood work will be ordered for tomorrow morning. 5. Reassessment with results. 05/16/2021: No changes to primary team treatment plan and appears to be showing some response to current regimen with sleep I spent minutes with the patient and/or on the patient floor today, greater than?50% of which was spent counseling/coordinating care. Reason for contiued inpatient stay Substantial Risk for: harm to self
[2021-05-16] MEDS: hydrOXYzine HCL 25 MG TABLET PO (14:05)
--- NOTE | 2021-05-16 15:01 | PC.NURSE ---
Patient sought out this voice writing reporter at approximately 1400 endorsing anxiety r/t upcoming visit from brother and niece. Patient stated, I'm nervous about seeing them because they don't understand how I feel. Patient went on to state that he was having a good day and all of a sudden his depression and anxiety got the better of him . We talked for approximately 30 min. Patient was reassured there would be someone available to talk whenever he felt the need and that [place] [facility] [place] was stable and had services in place. Patient was medicated with Atarax 25 mg and went to [facility] to watch tv in recliner.
[2021-05-16 18:00] VITALS: BP 139/74; PULSE 95; RESP 18; TEMP 37.1; O2SAT 99
[2021-05-16] MEDS: QUEtiapine Fumarate 100 MG TABLET PO (20:54)
[2021-05-16] MEDS: Nortriptyline HCl 10 MG CAPSULE PO (20:54)
[2021-05-17 09:27] VITALS: BP 137/80; PULSE 96; TEMP 36.1; O2SAT 98
--- NOTE | 2021-05-17 11:52 | MHC.CLN ---
F/U PATIENT APPEARS TO BE EATING WELL. RD TO FOLLOW WEEKLY.
--- NOTE | 2021-05-17 12:42 | HO.PSYCHPN ---
Subjective Subjective Date of Service: 05/17/21 Reason For Visit: depression,SI Subjective Notes: Conditional Voluntary Interim History: The nursing staff reported that the patient has complained of racing thoughts and he is unable to concentrate. He has been sleeping much better with Seroquel 100 mg and Pamelor. On interview, the patient denies manic symptoms he feels that his level of concentration is very poor but he is slightly over-sedated in the morning Mental Status Exam Mental Status Exam Patient Appearance: Well Grooomed Patient Orientation: Person Level of Consciousness: Awake Patient Behavior: Guarded and Suspicious Mood Description: Constricted and Depressed Affect Description: Constricted Patient Cognition Impaired: No Ability to Follow Directions: Good Speech Pattern: Clear and Appropriate Delusions: Not Present Thought Process: Linear and Slowed Thinking Thought Content: positive for Circumstantial and positive for Poverty of Content Depressive Symptoms: Diff. Making Decisions, Difficulty Sleeping, Sleeping More Than Usual and Feelings of Worthlessness Abnormal Motor Activity Signs and Symptoms: Psychomotor Retardation Judgement: Fair Diagnostics Vital Signs (24Hr): Vital Signs - 24 hr 05/16/21 18:00 05/17/21 09:27 Temperature 98.8 F 97 F Pulse Rate 95 96 Respiratory Rate 18 Blood Pressure 139/74 137/80 Pulse Oximetry 99 98 BMI result Body Mass Index 20.0 Labs Results: 05/13/21 07:03 05/13/21 07:03 Medications Medications Current Medications Acetaminophen (Acetaminophen 325 Mg Tablet) 650 mg PO Q6H PRN PRN Reason: Headache/Pain Mild Scale (1-3) Al Hydroxide/Mg Hydroxide (Magnesium Hydrox/Alum Hydrox 30 Ml Oral.Susp) 30 ml PO Q6H PRN PRN Reason: Heartburn/Nausea Hydroxyzine HCl (Hydroxyzine Hcl 25 Mg Tablet) 25 mg PO Q6H PRN PRN Reason: Anxiety Last Admin: 05/16/21 14:05 Dose: 25 mg Documented by: Magnesium Hydroxide (Milk Of Magnesia 30 Ml Oral.Susp) 30 ml PO DAILY PRN PRN Reason: Constipation Patient Own Med (Terazosin 5) 1 each PO DAILY@1830 [facility] Last Admin: 05/16/21 18:22 Dose: 1 each Documented by: Nortriptyline HCl (Nortriptyline Hcl 10 Mg Capsule) 10 mg PO BEDTIME [facility] Last Admin: 05/16/21 20:54 Dose: 10 mg Documented by: Psyllium Hydrophilic Mucilloid (Psyllium Seed 3.4 Gm Powd.Pack) 3.4 gm PO DAILY [facility] Last Admin: 05/17/21 08:07 Dose: 3.4 gm Documented by: Quetiapine Fumarate (Quetiapine Fumarate 100 Mg Tablet) 100 mg PO BEDTIME [facility] Last Admin: 05/16/21 20:54 Dose: 100 mg Documented by: Allergies Allergies Allergy/AdvReac Type Severity Reaction Status Date / Time No Known Allergies Allergy Verified 05/10/21 08:40 Assessment & Plan Assessment & Plan (1) MDD (major depressive disorder), recurrent severe, without psychosis: Status: Acute Code(s): F33.2 - Major depressive disorder, recurrent severe without psychotic features Assessment and Plan: The patient is an elderly male with a long history of anxiety and depression that worsened in the last months due to noncompliance to Lexapro. The patient stop Lexapro due to side effects. The patient has active suicidal ideation he needs inpatient level of care at this moment. Plan 1. Gather collateral information. 2. We discussed risks, benefits, side-effects and alternatives to he agreed to start nortriptyline 10 mg p.o. q.h.s. to target depression and insomnia. 3. Continue Seroquel 100 mg p.o. q.h.s. to target insomnia and mood lability. 4. Increase Pamelor up to 25 mg p.o. q.h.s. to target depression and insomnia. I spent minutes with the patient and/or on the patient floor today, greater than?50% of which was spent counseling/coordinating care. Reason for contiued inpatient stay Substantial Risk for: harm to self, inability to function, rapid decompensation and med/psych decompensation
[2021-05-17 18:00] VITALS: BP 139/86; PULSE 86; RESP 16; TEMP 37.1; O2SAT 98
[2021-05-17] MEDS: Magnesium Hydrox/Alum Hydrox 30 ML ORAL.SUSP PO (19:35)
[2021-05-17] MEDS: QUEtiapine Fumarate 100 MG TABLET PO (21:12)
[2021-05-17] MEDS: Nortriptyline HCl 25 MG CAPSULE PO (21:14)
[2021-05-18 09:44] VITALS: BP 109/74; PULSE 71; RESP 16; TEMP 36.4; O2SAT 96
--- NOTE | 2021-05-18 16:14 | HO.PSYCHPN ---
Subjective Subjective Date of Service: 05/18/21 Reason For Visit: depression,SI Subjective Notes: Conditional Voluntary Interim History: The nursing staff reported that the patient could not sleep very well last night. A relative called the outreach and education social worker and reported and strong family history of depression and anxiety from her mother's side. On interview, the patient reports poor sleep and mild anxiety, still dysphoric with no active suicidal ideation Mental Status Exam Mental Status Exam Patient Appearance: Well Grooomed Patient Orientation: Person Level of Consciousness: Awake Patient Behavior: Cooperative Mood Description: Depressed Affect Description: Constricted Patient Cognition Impaired: No Ability to Follow Directions: Good Speech Pattern: Clear Hallucinations: None Delusions: Not Present Thought Process: Goal Oriented Thought Content: positive for Circumstantial Depressive Symptoms: Insomnia, Difficulty Sleeping, Significant Weight Loss, Feelings of Worthlessness and Feelings of Guilt Judgement: Fair Diagnostics Vital Signs (24Hr): Vital Signs - 24 hr 05/17/21 18:00 05/18/21 09:44 Temperature 98.7 F 97.5 F Pulse Rate 86 71 Respiratory Rate 16 16 Blood Pressure 139/86 109/74 Pulse Oximetry 98 96 BMI result Body Mass Index 20.0 Labs Results: 05/13/21 07:03 05/13/21 07:03 Medications Medications Current Medications Acetaminophen (Acetaminophen 325 Mg Tablet) 650 mg PO Q6H PRN PRN Reason: Headache/Pain Mild Scale (1-3) Al Hydroxide/Mg Hydroxide (Magnesium Hydrox/Alum Hydrox 30 Ml Oral.Susp) 30 ml PO Q6H PRN PRN Reason: Heartburn/Nausea Last Admin: 05/17/21 19:35 Dose: 30 ml Documented by: Hydroxyzine HCl (Hydroxyzine Hcl 25 Mg Tablet) 25 mg PO Q6H PRN PRN Reason: Anxiety Last Admin: 05/16/21 14:05 Dose: 25 mg Documented by: Magnesium Hydroxide (Milk Of Magnesia 30 Ml Oral.Susp) 30 ml PO DAILY PRN PRN Reason: Constipation Patient Own Med (Terazosin 5) 1 each PO DAILY@1830 [facility] Last Admin: 05/17/21 19:35 Dose: 1 each Documented by: Nortriptyline HCl (Nortriptyline Hcl 25 Mg Capsule) 25 mg PO BEDTIME [facility] Last Admin: 05/17/21 21:14 Dose: 25 mg Documented by: Psyllium Hydrophilic Mucilloid (Psyllium Seed 3.4 Gm Powd.Pack) 3.4 gm PO DAILY [facility] Last Admin: 05/18/21 07:58 Dose: 3.4 gm Documented by: Quetiapine Fumarate (Quetiapine Fumarate 100 Mg Tablet) 100 mg PO BEDTIME [facility] Last Admin: 05/17/21 21:12 Dose: 100 mg Documented by: Allergies Allergies Allergy/AdvReac Type Severity Reaction Status Date / Time No Known Allergies Allergy Verified 05/10/21 08:40 Assessment & Plan Assessment & Plan (1) MDD (major depressive disorder), recurrent severe, without psychosis: Status: Acute Code(s): F33.2 - Major depressive disorder, recurrent severe without psychotic features Assessment and Plan: The patient is an elderly male with a long history of anxiety and depression that worsened in the last months due to noncompliance to Lexapro. The patient stop Lexapro due to side effects. The patient has active suicidal ideation he needs inpatient level of care at this moment. Plan 1. Gather collateral information. 2. We discussed risks, benefits, side-effects and alternatives to he agreed to start nortriptyline 10 mg p.o. q.h.s. to target depression and insomnia. 3. Continue Seroquel 100 mg p.o. q.h.s. to target insomnia and mood lability. 4. Keep Pamelor up to 25 mg p.o. q.h.s. to target depression and insomnia. 5. Pamelor level in 3 days I spent minutes with the patient and/or on the patient floor today, greater than?50% of which was spent counseling/coordinating care. Reason for contiued inpatient stay Substantial Risk for: harm to self, inability to function, rapid decompensation and med/psych decompensation
[2021-05-18 20:12] VITALS: BP 138/70; PULSE 85; TEMP 36.5; O2SAT 99
[2021-05-18] MEDS: QUEtiapine Fumarate 100 MG TABLET PO (20:35)
[2021-05-18] MEDS: Nortriptyline HCl 25 MG CAPSULE PO (20:35)
[2021-05-18] MEDS: Zolpidem Tartrate 5 MG TABLET PO (23:40)
[2021-05-19 06:00] VITALS: BP 148/81; PULSE 99; TEMP 36.2; O2SAT 98
--- NOTE | 2021-05-19 11:46 | HO.PSYCHPN ---
Subjective Subjective Date of Service: 05/19/21 Reason For Visit: depression,SI Subjective Notes: Conditional Voluntary Interim History: Pt presents as very depressed, tearful at times. He reports today I'm feeling very down, I can't stop negative thoughts. Pt endorses feeling very hopeless, helpless, does not think he will get better. He reports thoughts of life not worth living but denies any plan or intent to hurt himself. He reports he slept better last night with ambien. Per nursing, pt slept better last night, visible in morning for group but back to his room. Pt denies any physical pain. No constipation. Medication Compliance: Yes Review of Systems Review of Systems Unremarkable Mental Status Exam Mental Status Exam Narrative: well groomed male, alert, oriented x 03. cooperative. No psychomotor agitation or retardation noted. Ambulating with walker. Speech is clear, normal rate/rhythm/volume, spontaneous. Mood depressed, affect is blunted/congruent. AH/VH: none Delusions: none. SI: passive but denies intent ot plan. TP: linear. TC: without psychosis/delusional content, very hopeless/helpless. Insight/judgment: fair x 2. Diagnostics Vital Signs (24Hr): Vital Signs - 24 hr 05/18/21 20:12 05/19/21 06:00 Temperature 97.7 F 97.1 F Pulse Rate 85 99 Blood Pressure 138/70 148/81 H Pulse Oximetry 99 98 BMI result Body Mass Index 20.0 Labs Results: 05/13/21 07:03 05/13/21 07:03 Medications Medications Current Medications Acetaminophen (Acetaminophen 325 Mg Tablet) 650 mg PO Q6H PRN PRN Reason: Headache/Pain Mild Scale (1-3) Al Hydroxide/Mg Hydroxide (Magnesium Hydrox/Alum Hydrox 30 Ml Oral.Susp) 30 ml PO Q6H PRN PRN Reason: Heartburn/Nausea Last Admin: 05/17/21 19:35 Dose: 30 ml Documented by: Hydroxyzine HCl (Hydroxyzine Hcl 25 Mg Tablet) 25 mg PO Q6H PRN PRN Reason: Anxiety Last Admin: 05/16/21 14:05 Dose: 25 mg Documented by: Magnesium Hydroxide (Milk Of Magnesia 30 Ml Oral.Susp) 30 ml PO DAILY PRN PRN Reason: Constipation Patient Own Med (Terazosin 5) 1 each PO DAILY@1830 [facility] Last Admin: 05/18/21 18:19 Dose: 1 each Documented by: Nortriptyline HCl (Nortriptyline Hcl 25 Mg Capsule) 50 mg PO BEDTIME [facility] Psyllium Hydrophilic Mucilloid (Psyllium Seed 3.4 Gm Powd.Pack) 3.4 gm PO DAILY [facility] Last Admin: 05/19/21 08:16 Dose: 3.4 gm Documented by: Quetiapine Fumarate (Quetiapine Fumarate 100 Mg Tablet) 100 mg PO BEDTIME [facility] Last Admin: 05/18/21 20:35 Dose: 100 mg Documented by: Zolpidem Tartrate (Zolpidem Tartrate 5 Mg Tablet) 5 mg PO BEDTIME PRN PRN Reason: Insomnia Last Admin: 05/18/21 23:40 Dose: 5 mg Documented by: Allergies Allergies Allergy/AdvReac Type Severity Reaction Status Date / Time No Known Allergies Allergy Verified 05/10/21 08:40 Assessment & Plan Assessment & Plan (1) MDD (major depressive disorder), recurrent severe, without psychosis: Status: Acute Code(s): F33.2 - Major depressive disorder, recurrent severe without psychotic features Assessment and Plan: The patient is an elderly male with a long history of anxiety and depression that worsened in the last months due to noncompliance to Lexapro. The patient stop Lexapro due to side effects. The patient has active suicidal ideation he needs inpatient level of care at this moment. Plan 1. Gather collateral information. 2. Continue Seroquel 100 mg p.o. q.h.s. to target insomnia and mood lability. 3. Increase Pamelor to 50 mg p.o. q.h.s. to target depression and insomnia on 05/19 4. Pamelor level in 3 days I spent minutes with the patient and/or on the patient floor today, greater than?50% of which was spent counseling/coordinating care. Reason for contiued inpatient stay Substantial Risk for: inability to function
[2021-05-19] MEDS: hydrOXYzine HCL 25 MG TABLET PO (18:17)
[2021-05-19] MEDS: QUEtiapine Fumarate 100 MG TABLET PO (20:07)
[2021-05-19] MEDS: Nortriptyline HCl 25 MG CAPSULE 50 MG PO (20:07)
[2021-05-19 20:50] VITALS: BP 133/80; PULSE 94; RESP 19; TEMP 36.6; O2SAT 98
[2021-05-19] MEDS: Zolpidem Tartrate 5 MG TABLET PO (22:07)
[2021-05-20 06:00] VITALS: BP 116/66; PULSE 118; TEMP 36.4; O2SAT 97
[2021-05-20 07:00] VITALS: BMI 22.5
--- NOTE | 2021-05-20 14:33 | P.PNPSI_ITS ---
Subjective Subjective Date of Service: 05/20/21 Reason For Visit: depression,SI Subjective Notes: Conditional Voluntary Interim History: The nursing staff reports that he slept much better last night. He has not attended to groups yesterday and he stills depressed. He states most of the time in his room he goes to a few groups. On interview, the patient reports depressive symptoms with anhedonia, lack of energy and obsessive thoughts on ?bad thoughts . No side effects with Pamelor 50 mg p.o. q.h.s. Mental Status Exam Mental Status Exam Patient Appearance: Well Grooomed Patient Orientation: Person Level of Consciousness: Awake Patient Behavior: Cooperative Mood Description: Depressed Affect Description: Constricted Patient Cognition Impaired: No Ability to Follow Directions: Good Speech Pattern: Coherent Hallucinations: None Delusions: Not Present Thought Process: Linear Thought Content: positive for Circumstantial Judgement: Fair Diagnostics Vital Signs (24Hr): Vital Signs - 24 hr 05/19/21 20:50 05/20/21 06:00 Temperature 97.9 F 97.5 F Pulse Rate 94 118 H Respiratory Rate 19 Blood Pressure 133/80 116/66 Pulse Oximetry 98 97 BMI result Body Mass Index 22.5 Labs Results: 05/13/21 07:03 05/13/21 07:03 Imaging Radiology Impressions: [facility] Impressions Head CT 05/20/21 10:13 IMPRESSION: No acute intracranial pathology. Mild chronic volume loss with small vessel ischemic change. Medications Medications Current Medications Acetaminophen (Acetaminophen 325 Mg Tablet) 650 mg PO Q6H PRN PRN Reason: Headache/Pain Mild Scale (1-3) Al Hydroxide/Mg Hydroxide (Magnesium Hydrox/Alum Hydrox 30 Ml Oral.Susp) 30 ml PO Q6H PRN PRN Reason: Heartburn/Nausea Last Admin: 05/17/21 19:35 Dose: 30 ml Documented by: Hydroxyzine HCl (Hydroxyzine Hcl 25 Mg Tablet) 25 mg PO Q6H PRN PRN Reason: Anxiety Last Admin: 05/19/21 18:17 Dose: 25 mg Documented by: Magnesium Hydroxide (Milk Of Magnesia 30 Ml Oral.Susp) 30 ml PO DAILY PRN PRN Reason: Constipation Patient Own Med (Terazosin 5) 1 each PO DAILY@1830 [facility] Last Admin: 05/19/21 18:13 Dose: 1 each Documented by: Nortriptyline HCl (Nortriptyline Hcl 25 Mg Capsule) 50 mg PO BEDTIME [facility] Last Admin: 05/19/21 20:07 Dose: 50 mg Documented by: Psyllium Hydrophilic Mucilloid (Psyllium Seed 3.4 Gm Powd.Pack) 3.4 gm PO DAILY [facility] Last Admin: 05/20/21 08:18 Dose: 3.4 gm Documented by: Quetiapine Fumarate (Quetiapine Fumarate 100 Mg Tablet) 100 mg PO BEDTIME [facility] Last Admin: 05/19/21 20:07 Dose: 100 mg Documented by: Zolpidem Tartrate (Zolpidem Tartrate 5 Mg Tablet) 5 mg PO BEDTIME PRN PRN Reason: Insomnia Last Admin: 05/19/21 22:07 Dose: 5 mg Documented by: Allergies Allergies Allergy/AdvReac Type Severity Reaction Status Date / Time No Known Allergies Allergy Verified 05/10/21 08:40 Assessment & Plan Assessment & Plan (1) MDD (major depressive disorder), recurrent severe, without psychosis: Status: Acute Code(s): F33.2 - Major depressive disorder, recurrent severe without psychotic features Assessment and Plan: The patient is an elderly male with a long history of anxiety and depression that worsened in the last months due to noncompliance to Lexapro. The patient stop Lexapro due to side effects. The patient has active suicidal ideation he needs inpatient level of care at this moment. Plan 1. Gather collateral information. 2. Continue Seroquel 100 mg p.o. q.h.s. to target insomnia and mood lability. 3. Keep Pamelor 50 mg p.o. q.h.s. to target depression and insomnia on 05/19 4. Pamelor level for next Monday. 5. CT scan head without contrast ordered today and so far it is normal. I spent minutes with the patient and/or on the patient floor today, gr eater than?50% of which was spent counseling/coordinating care. Reason for contiued inpatient stay Substantial Risk for: harm to self, inability to function, rapid decompensation and med/psych decompensation
[2021-05-20 18:00] VITALS: BP 134/80; PULSE 104; RESP 18; TEMP 36.9; O2SAT 100
[2021-05-20] MEDS: Nortriptyline HCl 25 MG CAPSULE 50 MG PO (20:29)
[2021-05-20] MEDS: QUEtiapine Fumarate 100 MG TABLET PO (20:30)
[2021-05-20] MEDS: Zolpidem Tartrate 5 MG TABLET PO (21:36)
[2021-05-21 06:00] VITALS: BP 146/91; PULSE 101; RESP 18; TEMP 36.7; O2SAT 98
--- NOTE | 2021-05-21 13:49 | P.PNPSI_ITS ---
Subjective Subjective Date of Service: 05/21/21 Reason For Visit: depression,SI Subjective Notes: Conditional Voluntary Interim History: The nursing staff reports the patient remains depressed and he has some problems at sleep at night. He looks pessimistic so even though he attends to groups. He has been mostly focused on medication treatment to treat his depression. On interview, the patient reports dysphoria and poor sleep if Ambien is given 2 hourly. We discussed the possibility of psychotherapy as adjunctive treatment. Mental Status Exam Mental Status Exam Patient Appearance: Well Grooomed Patient Orientation: Person and Situation Level of Consciousness: Awake Patient Behavior: Cooperative Mood Description: Depressed Affect Description: Constricted Ability to Follow Directions: Good Speech Pattern: Clear Memory Description: Intact Hallucinations: None Thought Process: Linear Thought Content: positive for Linear and positive for Perseveration Judgement: Fair Diagnostics Vital Signs (24Hr): Vital Signs - 24 hr 05/20/21 18:00 Temperature 98.4 F Pulse Rate 104 H Respiratory Rate 18 Blood Pressure 134/80 Pulse Oximetry 100 BMI result Body Mass Index 22.5 Labs Results: 05/13/21 07:03 05/13/21 07:03 Imaging Radiology Impressions: ITS Impressions Head CT 05/20/21 10:13 IMPRESSION: No acute intracranial pathology. Mild chronic volume loss with small vessel ischemic change. Medications Medications Current Medications Acetaminophen (Acetaminophen 325 Mg Tablet) 650 mg PO Q6H PRN PRN Reason: Headache/Pain Mild Scale (1-3) Al Hydroxide/Mg Hydroxide (Magnesium Hydrox/Alum Hydrox 30 Ml Oral.Susp) 30 ml PO Q6H PRN PRN Reason: Heartburn/Nausea Last Admin: 05/17/21 19:35 Dose: 30 ml Documented by: Hydroxyzine HCl (Hydroxyzine Hcl 25 Mg Tablet) 25 mg PO Q6H PRN PRN Reason: Anxiety Last Admin: 05/19/21 18:17 Dose: 25 mg Documented by: Magnesium Hydroxide (Milk Of Magnesia 30 Ml Oral.Susp) 30 ml PO DAILY PRN PRN Reason: Constipation Multivitamins/Vitamin C (Multivitamin Tablet) 1 tab PO DAILY [facility] Patient Own Med (Terazosin 5) 1 each PO DAILY@1830 [facility] Last Admin: 05/20/21 17:28 Dose: 1 each Documented by: Nortriptyline HCl (Nortriptyline Hcl 25 Mg Capsule) 50 mg PO BEDTIME [facility] Last Admin: 05/20/21 20:29 Dose: 50 mg Documented by: Psyllium Hydrophilic Mucilloid (Psyllium Seed 3.4 Gm Powd.Pack) 3.4 gm PO DAILY [facility] Last Admin: 05/21/21 08:01 Dose: 3.4 gm Documented by: Quetiapine Fumarate (Quetiapine Fumarate 100 Mg Tablet) 100 mg PO BEDTIME [facility] Last Admin: 05/20/21 20:30 Dose: 100 mg Documented by: Zolpidem Tartrate (Zolpidem Tartrate 5 Mg Tablet) 5 mg PO BEDTIME PRN PRN Reason: Insomnia Last Admin: 05/20/21 21:36 Dose: 5 mg Documented by: Allergies Allergies Allergy/AdvReac Type Severity Reaction Status Date / Time No Known Allergies Allergy Verified 05/10/21 08:40 Assessment & Plan Assessment & Plan (1) MDD (major depressive disorder), recurrent severe, without psychosis: Status: Acute Code(s): F33.2 - Major depressive disorder, recurrent severe without psychotic features Assessment and Plan: The patient is an elderly male with a long history of anxiety and depression that worsened in the last months due to noncompliance to Lexapro. The patient stop Lexapro due to side effects. The patient has active suicidal ideation he needs inpatient level of care at this moment. Plan 1. Gather collateral information. 2. Continue Seroquel 100 mg p.o. q.h.s. to target insomnia and mood lability. 3. Keep Pamelor 50 mg p.o. q.h.s. to target depression and insomnia on 05/19 4. Pamelor level for next Monday. 5. CT scan head without contrast ordered today and so far it is normal. I spent minutes with the patient and/or on the patient floor today, greater than?50% of which was spent counseling/coordinating care. Reason for contiued inpatient stay Substantial Risk for: harm to self, inability to function, rapid decompensation and med/psych decompensation
[2021-05-21] MEDS: hydrOXYzine HCL 25 MG TABLET PO (14:08)
[2021-05-21 18:00] VITALS: BP 121/79; PULSE 105; RESP 16; TEMP 36.6; O2SAT 98
[2021-05-21] MEDS: Nortriptyline HCl 25 MG CAPSULE 50 MG PO (20:24)
[2021-05-21] MEDS: Zolpidem Tartrate 5 MG TABLET PO (20:24)
[2021-05-21] MEDS: QUEtiapine Fumarate 100 MG TABLET PO (20:25)
[2021-05-22 09:31] VITALS: BP 131/72; PULSE 104; RESP 16; TEMP 36.7; O2SAT 98
[2021-05-22] MEDS: Multivitamin TABLET 1 TAB PO (09:42)
--- NOTE | 2021-05-22 10:15 | HO.PSYCHPN ---
Subjective Subjective Date of Service: 05/22/21 Reason For Visit: depression,SI Subjective Notes: Conditional Voluntary Interim History: Pt had visit with his brother. Pt reports that today feels slight improvement in mood in that he is more positive about getting better and having less passive SI thoughts. He reports he slept great. Brother reports pt appears with brighter affect today. Pt denies SI/HI. Taking medications as prescribed. No behavioral concerns. Medication Compliance: Yes Review of Systems Review of Systems Unremarkable Mental Status Exam Mental Status Exam Narrative: well groomed male, alert, oriented x 03. cooperative. No psychomotor agitation or retardation noted. Ambulating with walker. Speech is clear, normal rate/rhythm/volume, spontaneous. Mood depressed, affect is blunted/congruent. AH/VH: none Delusions: none. SI: passive but denies intent ot plan. TP: linear. TC: without psychosis/delusional content, very hopeless/helpless. Insight/judgment: fair x 2. Diagnostics Vital Signs (24Hr): Vital Signs - 24 hr 05/23/21 04:30 05/23/21 08:00 05/23/21 18:26 Temperature 97.2 F 97.6 F Pulse Rate 97 95 112 H Respiratory Rate Blood Pressure 191/113 H 129/74 158/90 H Pulse Oximetry 98 96 98 05/23/21 19:41 Temperature 98.3 F Pulse Rate 108 H Respiratory Rate 18 Blood Pressure 128/76 Pulse Oximetry 97 BMI result Body Mass Index 22.5 Labs Results: 05/13/21 07:03 05/13/21 07:03 Imaging Radiology Impressions: ITS Impressions Head CT 05/20/21 10:13 IMPRESSION: No acute intracranial pathology. Mild chronic volume loss with small vessel ischemic change. Medications Medications Current Medications Acetaminophen (Acetaminophen 325 Mg Tablet) 650 mg PO Q6H PRN PRN Reason: Headache/Pain Mild Scale (1-3) Al Hydroxide/Mg Hydroxide (Magnesium Hydrox/Alum Hydrox 30 Ml Oral.Susp) 30 ml PO Q6H PRN PRN Reason: Heartburn/Nausea Last Admin: 05/17/21 19:35 Dose: 30 ml Documented by: Hydroxyzine HCl (Hydroxyzine Hcl 25 Mg Tablet) 25 mg PO Q6H PRN PRN Reason: Anxiety Last Admin: 05/23/21 14:18 Dose: 25 mg Documented by: Magnesium Hydroxide (Milk Of Magnesia 30 Ml Oral.Susp) 30 ml PO DAILY PRN PRN Reason: Constipation Multivitamins/Vitamin C (Multivitamin Tablet) 1 tab PO DAILY [facility] Last Admin: 05/23/21 08:20 Dose: 1 tab Documented by: Patient Own Med (Terazosin 5) 1 each PO DAILY@1830 [facility] Last Admin: 05/23/21 18:19 Dose: 1 each Documented by: Nortriptyline HCl (Nortriptyline Hcl 25 Mg Capsule) 50 mg PO BEDTIME [facility] Last Admin: 05/22/21 20:00 Dose: 50 mg Documented by: Psyllium Hydrophilic Mucilloid (Psyllium Seed 3.4 Gm Powd.Pack) 3.4 gm PO DAILY [facility] Last Admin: 05/23/21 08:20 Dose: 3.4 gm Documented by: Quetiapine Fumarate (Quetiapine Fumarate 100 Mg Tablet) 100 mg PO BEDTIME [facility] Last Admin: 05/22/21 20:34 Dose: 100 mg Documented by: Zolpidem Tartrate (Zolpidem Tartrate 5 Mg Tablet) 5 mg PO BEDTIME [facility] Allergies Allergies Allergy/AdvReac Type Severity Reaction Status Date / Time No Known Allergies Allergy Verified 05/10/21 08:40 Assessment & Plan Assessment & Plan (1) MDD (major depressive disorder), recurrent severe, without psychosis: Status: Acute Code(s): F33.2 - Major depressive disorder, recurrent severe without psychotic features Assessment and Plan: The patient is an elderly male with a long history of anxiety and depression that worsened in the last months due to noncompliance to Lexapro. The patient stop Lexapro due to side effects. The patient has active suicidal ideation he needs inpatient level of care at this moment. Plan 1. Gather collateral information. 2. Continue Seroquel 100 mg p.o. q.h.s. to target insomnia and mood lability. 3. Keep Pamelor 50 mg p.o. q.h.s. to target depression and insomnia on 05/19 4. Pamelor level for next Monday. 5. CT scan head without contrast ordered today and so far it is normal. 05/22: pt reports slight improvement in symptoms of depression. No SI/HI. more optimistic about future and brighter affect. No medication changes I spent minutes with the patient and/or on the patient floor today, greater than?50% of which was spent counseling/coordinating care. Reason for contiued inpatient stay Substantial Risk for: inability to function
[2021-05-22 17:41] VITALS: BP 151/93; PULSE 107; RESP 16; O2SAT 98
[2021-05-22 18:00] VITALS: BP 129/82; PULSE 106; RESP 18; TEMP 36.4; O2SAT 98
[2021-05-22] MEDS: Nortriptyline HCl 25 MG CAPSULE 50 MG PO (20:00)
[2021-05-22] MEDS: Zolpidem Tartrate 5 MG TABLET PO (20:34)
[2021-05-22] MEDS: QUEtiapine Fumarate 100 MG TABLET PO (20:34)
--- NOTE | 2021-05-23 | ECG_ITS ---
Test Reason : palpitations Blood Pressure : / mmHG Vent. Rate : 095 BPM Atrial Rate : 095 BPM P-R Int : 186 ms QRS Dur : 082 ms QT Int : 346 ms P-R-T Axes : 031 -13 007 degrees QTc Int : 434 ms Normal sinus rhythm Minimal voltage criteria for LVH, may be normal variant ( R in aVL ) Borderline ECG When compared with ECG of 07-MAY-2021 14:34, Premature atrial complexes are no longer Present Referred By: Radha Harmon Electronically Signed By:ASHER FERMIN MD
[2021-05-23 04:30] VITALS: BP 191/113; PULSE 97; O2SAT 98
[2021-05-23 08:00] VITALS: BP 129/74; PULSE 95; TEMP 36.2; O2SAT 96
[2021-05-23] MEDS: Multivitamin TABLET 1 TAB PO (08:20)
--- NOTE | 2021-05-23 10:01 | HO.PSYCHPN ---
Subjective Subjective Date of Service: 05/23/21 Reason For Visit: depression,SI Subjective Notes: Conditional Voluntary Interim History: Pt reports some difficulty sleeping last night and feeling bit tired this morning. He reports mood is better in that he is slightly less depressed. He denies SI/HI. He reports eating well. Per nursing, pt has been increasingly more visible, attends some groups, social with select peers. Medication Compliance: Yes Review of Systems Review of Systems Unremarkable Mental Status Exam Mental Status Exam Narrative: well groomed male, alert, oriented x 03. cooperative. No psychomotor agitation or retardation noted. Ambulating with walker. Speech is clear, normal rate/rhythm/volume, spontaneous. Mood less depressed, affect is slightly brighter, mostly constricted. AH/VH: none Delusions: none. SI: passive but denies intent ot plan. TP: linear. TC: without psychosis/delusional content, very hopeless/helpless. Insight/judgment: fair x 2. Diagnostics Vital Signs (24Hr): Vital Signs - 24 hr 05/23/21 04:30 05/23/21 08:00 05/23/21 18:26 Temperature 97.2 F 97.6 F Pulse Rate 97 95 112 H Respiratory Rate Blood Pressure 191/113 H 129/74 158/90 H Pulse Oximetry 98 96 98 05/23/21 19:41 Temperature 98.3 F Pulse Rate 108 H Respiratory Rate 18 Blood Pressure 128/76 Pulse Oximetry 97 BMI result Body Mass Index 22.5 Labs Results: 05/13/21 07:03 05/13/21 07:03 Imaging Radiology Impressions: ITS Impressions Head CT 05/20/21 10:13 IMPRESSION: No acute intracranial pathology. Mild chronic volume loss with small vessel ischemic change. Medications Medications Current Medications Acetaminophen (Acetaminophen 325 Mg Tablet) 650 mg PO Q6H PRN PRN Reason: Headache/Pain Mild Scale (1-3) Al Hydroxide/Mg Hydroxide (Magnesium Hydrox/Alum Hydrox 30 Ml Oral.Susp) 30 ml PO Q6H PRN PRN Reason: Heartburn/Nausea Last Admin: 05/17/21 19:35 Dose: 30 ml Documented by: Hydroxyzine HCl (Hydroxyzine Hcl 25 Mg Tablet) 25 mg PO Q6H PRN PRN Reason: Anxiety Last Admin: 05/23/21 14:18 Dose: 25 mg Documented by: Magnesium Hydroxide (Milk Of Magnesia 30 Ml Oral.Susp) 30 ml PO DAILY PRN PRN Reason: Constipation Multivitamins/Vitamin C (Multivitamin Tablet) 1 tab PO DAILY [facility] Last Admin: 05/23/21 08:20 Dose: 1 tab Documented by: Patient Own Med (Terazosin 5) 1 each PO DAILY@1830 [facility] Last Admin: 05/23/21 18:19 Dose: 1 each Documented by: Nortriptyline HCl (Nortriptyline Hcl 25 Mg Capsule) 50 mg PO BEDTIME [facility] Last Admin: 05/22/21 20:00 Dose: 50 mg Documented by: Psyllium Hydrophilic Mucilloid (Psyllium Seed 3.4 Gm Powd.Pack) 3.4 gm PO DAILY [facility] Last Admin: 05/23/21 08:20 Dose: 3.4 gm Documented by: Quetiapine Fumarate (Quetiapine Fumarate 100 Mg Tablet) 100 mg PO BEDTIME [facility] Last Admin: 05/22/21 20:34 Dose: 100 mg Documented by: Zolpidem Tartrate (Zolpidem Tartrate 5 Mg Tablet) 5 mg PO BEDTIME [facility] Allergies Allergies Allergy/AdvReac Type Severity Reaction Status Date / Time No Known Allergies Allergy Verified 05/10/21 08:40 Assessment & Plan Assessment & Plan (1) MDD (major depressive disorder), recurrent severe, without psychosis: Status: Acute Code(s): F33.2 - Major depressive disorder, recurrent severe without psychotic features Assessment and Plan: The patient is an elderly male with a long history of anxiety and depression that worsened in the last months due to noncompliance to Lexapro. The patient stop Lexapro due to side effects. The patient has active suicidal ideation he needs inpatient level of care at this moment. Plan 1. Gather collateral information. 2. Continue Seroquel 100 mg p.o. q.h.s. to target insomnia and mood lability. 3. Keep Pamelor 50 mg p.o. q.h.s. to target depression and insomnia on 05/19 4. Pamelor level for next Monday. 5. CT scan head without contrast ordered today and so far it is normal. 05/22: pt reports slight improvement in symptoms of depression. No SI/HI. more optimistic about future and brighter affect. No medication changes 05/23: reports fair sleep last night, bit tired in morning. No SI/HI. No medication changes. starting to see some improvement in mood. I spent minutes with the patient and/or on the patient floor today, greater than?50% of which was spent counseling/coordinating care. Reason for contiued inpatient stay Substantial Risk for: inability to function
[2021-05-23] MEDS: hydrOXYzine HCL 25 MG TABLET PO (14:18)
[2021-05-23] MEDS: LORazepam 0.5 MG TABLET PO (16:50)
[2021-05-23 18:26] VITALS: BP 158/90; PULSE 112; TEMP 36.4; O2SAT 98
[2021-05-23 19:41] VITALS: BP 128/76; PULSE 108; RESP 18; TEMP 36.8; O2SAT 97
[2021-05-23] MEDS: Nortriptyline HCl 25 MG CAPSULE 50 MG PO (21:08)
[2021-05-23] MEDS: QUEtiapine Fumarate 100 MG TABLET PO (21:08)
[2021-05-23] MEDS: Zolpidem Tartrate 5 MG TABLET PO (21:08)
--- NOTE | 2021-05-24 00:57 | PC.NURSE ---
dr huang notified 1. pt upset/anxious 2. worried that he will not be able to sleep 3. ambien has been d/c 4. remains tachycardic hr 108 bpm 5. b/p improved 126/78 plan-ambien 5 mg po
[2021-05-24 08:00] VITALS: BP 150/89; PULSE 100; TEMP 36.6; O2SAT 98
[2021-05-24] MEDS: Multivitamin TABLET 1 TAB PO (08:05)
[2021-05-24] MEDS: hydrOXYzine HCL 25 MG TABLET PO (08:06)
--- NOTE | 2021-05-24 14:22 | HO.PSYCHPN ---
Subjective Subjective Date of Service: 05/24/21 Reason For Visit: depression,SI Subjective Notes: Conditional Voluntary Interim History: The nursing staff reported that on Monday he had a visitor and he was extreme reactions with blood pressure very high. He could not sleep very well. Today we had a family meeting his brother demanded several ancillary services for discharge. Apparently, Monday, her brother is scared him regarding going back home. During the family meeting, it was clear that the patient needs to go to assisted living facility. According to his brother, the patient is now [facility]. On Monday he has his blood work for pulmonary level, we are waiting for results. He agreed to change Ativan to Klonopin. Mental Status Exam Mental Status Exam Patient Appearance: Well Grooomed Patient Orientation: Person and Situation Level of Consciousness: Awake Patient Behavior: Cooperative Mood Description: Depressed Affect Description: Constricted Patient Cognition Impaired: No Ability to Follow Directions: Good Speech Pattern: Clear Memory Description: Intact Hallucinations: None Delusions: Not Present Thought Process: Goal Oriented Thought Content: positive for Circumstantial and positive for Goal Oriented Judgement: Fair Diagnostics Vital Signs (24Hr): Vital Signs - 24 hr 05/23/21 18:26 05/23/21 19:41 05/24/21 08:00 Temperature 97.6 F 98.3 F 97.9 F Pulse Rate 112 H 108 H 100 Respiratory Rate 18 Blood Pressure 158/90 H 128/76 150/89 H Pulse Oximetry 98 97 98 BMI result Body Mass Index 22.5 Labs Results: 05/13/21 07:03 05/13/21 07:03 Imaging Radiology Impressions: ITS Impressions Head CT 05/20/21 10:13 IMPRESSION: No acute intracranial pathology. Mild chronic volume loss with small vessel ischemic change. Medications Medications Current Medications Acetaminophen (Acetaminophen 325 Mg Tablet) 650 mg PO Q6H PRN PRN Reason: Headache/Pain Mild Scale (1-3) Al Hydroxide/Mg Hydroxide (Magnesium Hydrox/Alum Hydrox 30 Ml Oral.Susp) 30 ml PO Q6H PRN PRN Reason: Heartburn/Nausea Last Admin: 05/17/21 19:35 Dose: 30 ml Documented by: Hydroxyzine HCl (Hydroxyzine Hcl 25 Mg Tablet) 25 mg PO Q6H PRN PRN Reason: Anxiety Last Admin: 05/24/21 08:06 Dose: 25 mg Documented by: Magnesium Hydroxide (Milk Of Magnesia 30 Ml Oral.Susp) 30 ml PO DAILY PRN PRN Reason: Constipation Multivitamins/Vitamin C (Multivitamin Tablet) 1 tab PO DAILY [facility] Last Admin: 05/24/21 08:05 Dose: 1 tab Documented by: Patient Own Med (Terazosin 5) 1 each PO DAILY@1830 [facility] Last Admin: 05/23/21 18:19 Dose: 1 each Documented by: Nortriptyline HCl (Nortriptyline Hcl 25 Mg Capsule) 50 mg PO BEDTIME [facility] Last Admin: 05/23/21 21:08 Dose: 50 mg Documented by: Psyllium Hydrophilic Mucilloid (Psyllium Seed 3.4 Gm Powd.Pack) 3.4 gm PO DAILY [facility] Last Admin: 05/24/21 08:06 Dose: 3.4 gm Documented by: Quetiapine Fumarate (Quetiapine Fumarate 100 Mg Tablet) 100 mg PO BEDTIME [facility] Last Admin: 05/23/21 21:08 Dose: 100 mg Documented by: Zolpidem Tartrate (Zolpidem Tartrate 5 Mg Tablet) 5 mg PO BEDTIME [facility] Last Admin: 05/23/21 21:08 Dose: 5 mg Documented by: Allergies Allergies Allergy/AdvReac Type Severity Reaction Status Date / Time No Known Allergies Allergy Verified 05/10/21 08:40 Assessment & Plan Assessment & Plan (1) MDD (major depressive disorder), recurrent severe, without psychosis: Status: Acute Code(s): F33.2 - Major depressive disorder, recurrent severe without psychotic features Assessment and Plan: The patient is an elderly male with a long history of anxiety and depression that worsened in the last months due to noncompliance to Lexapro. The patient stop Lexapro due to side effects. The patient has active suicidal ideation he needs inpatient level of care at this moment. Plan 1. Gather collateral information. 2. Continue Seroquel 100 mg p.o. q.h.s. to target insomnia and mood lability. 3. Keep Pamelor 50 mg p.o. q.h.s. to target depression and insomnia on 05/19 4. Pamelor level , waiting for results 5. CT scan head without contrast ordered today and so far it is normal. I spent minutes with the patient and/or on the patient floor today, greater than?50% of which was spent counseling/coordinating care. Reason for contiued inpatient stay Substantial Risk for: inability to function, rapid decompensation and med/psych decompensation
--- NOTE | 2021-05-24 15:07 | MHC.CLN ---
F/U APPEARS TO HAVE FAVORABLE WEIGHT GAIN SINCE ADMISSION WITH BMI=22.6, NORMAL, AND WEIGHT 99% OF IBW. NO CURRENT NUTRITIONAL PROBLEM. RD AVAILABLE BY CONSULT NEEDED.
[2021-05-24] MEDS: Zolpidem Tartrate 5 MG TABLET PO (20:11)
[2021-05-24] MEDS: Nortriptyline HCl 25 MG CAPSULE 50 MG PO (20:11)
[2021-05-24] MEDS: QUEtiapine Fumarate 100 MG TABLET PO (20:11)
[2021-05-24 20:31] VITALS: BP 163/88; PULSE 98; TEMP 36.9; O2SAT 98
[2021-05-25 06:00] VITALS: BP 126/71; PULSE 93; RESP 20; TEMP 36.9; O2SAT 96
[2021-05-25] MEDS: Multivitamin TABLET 1 TAB PO (07:59)
--- NOTE | 2021-05-25 14:26 | HO.PSYCHPN ---
Subjective Subjective Date of Service: 05/25/21 Reason For Visit: depression,SI Subjective Notes: Conditional Voluntary Interim History: The staff reported that the patient has eaten well and he has been a little DC in the morning. On interview, the patient reported poor sleep, his affect was slightly brighter and he was able to contract for safety in the facility. We discussed at length discharge planning and he agreed on the plan to get an [facility]IDENT[facility] as permanent housing. Mental Status Exam Mental Status Exam Patient Appearance: Well Grooomed Patient Orientation: Person Level of Consciousness: Awake Patient Behavior: Cooperative Mood Description: Depressed Affect Description: Constricted Patient Cognition Impaired: No Speech Pattern: Appropriate Hallucinations: None Delusions: Not Present Thought Process: Intact Thought Content: positive for Circumstantial Depressive Symptoms: Increased Anxiety and Difficulty Sleeping Judgement: Fair Diagnostics Vital Signs (24Hr): Vital Signs - 24 hr 05/24/21 20:31 05/25/21 06:00 Temperature 98.5 F 98.5 F Pulse Rate 98 93 Respiratory Rate 20 Blood Pressure 163/88 H 126/71 Pulse Oximetry 98 96 BMI result Body Mass Index 22.5 Labs Results: 05/13/21 07:03 05/13/21 07:03 Imaging Radiology Impressions: ITS Impressions Head CT 05/20/21 10:13 IMPRESSION: No acute intracranial pathology. Mild chronic volume loss with small vessel ischemic change. Medications Medications Current Medications Acetaminophen (Acetaminophen 325 Mg Tablet) 650 mg PO Q6H PRN PRN Reason: Headache/Pain Mild Scale (1-3) Al Hydroxide/Mg Hydroxide (Magnesium Hydrox/Alum Hydrox 30 Ml Oral.Susp) 30 ml PO Q6H PRN PRN Reason: Heartburn/Nausea Last Admin: 05/17/21 19:35 Dose: 30 ml Documented by: Hydroxyzine HCl (Hydroxyzine Hcl 25 Mg Tablet) 25 mg PO Q6H PRN PRN Reason: Anxiety Last Admin: 05/24/21 08:06 Dose: 25 mg Documented by: Magnesium Hydroxide (Milk Of Magnesia 30 Ml Oral.Susp) 30 ml PO DAILY PRN PRN Reason: Constipation Multivitamins/Vitamin C (Multivitamin Tablet) 1 tab PO DAILY [facility] Last Admin: 05/25/21 07:59 Dose: 1 tab Documented by: Patient Own Med (Terazosin 5) 1 each PO DAILY@1830 [facility] Last Admin: 05/24/21 18:42 Dose: 1 each Documented by: Nortriptyline HCl (Nortriptyline Hcl 25 Mg Capsule) 50 mg PO BEDTIME [facility] Last Admin: 05/24/21 20:11 Dose: 50 mg Documented by: Psyllium Hydrophilic Mucilloid (Psyllium Seed 3.4 Gm Powd.Pack) 3.4 gm PO DAILY [facility] Last Admin: 05/25/21 07:59 Dose: 3.4 gm Documented by: Quetiapine Fumarate (Quetiapine Fumarate 100 Mg Tablet) 100 mg PO BEDTIME [facility] Last Admin: 05/24/21 20:11 Dose: 100 mg Documented by: Zolpidem Tartrate (Zolpidem Tartrate 5 Mg Tablet) 5 mg PO BEDTIME [facility] Last Admin: 05/24/21 20:11 Dose: 5 mg Documented by: Allergies Allergies Allergy/AdvReac Type Severity Reaction Status Date / Time No Known Allergies Allergy Verified 05/10/21 08:40 Assessment & Plan Assessment & Plan (1) MDD (major depressive disorder), recurrent severe, without psychosis: Status: Acute Code(s): F33.2 - Major depressive disorder, recurrent severe without psychotic features Assessment and Plan: The patient is an elderly male with a long history of anxiety and depression that worsened in the last months due to noncompliance to Lexapro. The patient stop Lexapro due to side effects. The patient has active suicidal ideation he needs inpatient level of care at this moment. Plan 1. Gather collateral information. 2. Continue Seroquel 100 mg p.o. q.h.s. to target insomnia and mood lability. 3. Keep Pamelor 50 mg p.o. q.h.s. to target depression and insomnia on 05/19 4. Pamelor level , waiting for results 5. CT scan head without contrast ordered today and so far it is normal. I spent minutes with the patient and/or on the patient floor today, greater than?50% of which was spent counseling/coordinating care. Reason for contiued inpatient stay Substantial Risk for: harm to self, inability to function, rapid decompensation and med/psych decompensation
[2021-05-25 20:20] VITALS: BP 165/91; PULSE 106; RESP 18; TEMP 36.5; O2SAT 98
[2021-05-25] MEDS: Nortriptyline HCl 25 MG CAPSULE 50 MG PO (20:49)
[2021-05-25] MEDS: Zolpidem Tartrate 5 MG TABLET PO (20:49)
[2021-05-25] MEDS: QUEtiapine Fumarate 100 MG TABLET PO (20:49)
[2021-05-26] MEDS: Multivitamin TABLET 1 TAB PO (08:01)
[2021-05-26 08:24] VITALS: BP 124/76; PULSE 96; RESP 16; TEMP 36.3; O2SAT 99
--- NOTE | 2021-05-26 12:19 | HO.PSYCHPN ---
Subjective Subjective Date of Service: 05/26/21 Reason For Visit: depression,SI Subjective Notes: Conditional Voluntary Interim History: The nursing staff reported that the patient slept well last night. He to his Ambien and it worked for healing well. On interview, the patient reported that he slept well, he still dysphoric and he reported mild over-sedation in the morning. Still waiting for nortriptyline level Medication Compliance: Yes Review of Systems Acute medical concerns: No Medical Review of Systems: unchanged Mental Status Exam Mental Status Exam Patient Appearance: Well Grooomed Patient Orientation: Person, Place and Situation Level of Consciousness: Awake Patient Behavior: Cooperative Mood Description: Depressed Affect Description: Constricted Patient Cognition Impaired: No Ability to Follow Directions: Good Speech Pattern: Clear Hallucinations: None Delusions: Not Present Thought Process: Linear Thought Content: positive for Circumstantial Depressive Symptoms: Difficulty Sleeping, Crying Spells, Significant Weight Loss, Feelings of Worthlessness and Feelings of Guilt Judgement: Fair Diagnostics Vital Signs (24Hr): Vital Signs - 24 hr 05/25/21 20:20 05/26/21 08:24 Temperature 97.7 F 97.3 F Pulse Rate 106 H 96 Respiratory Rate 18 16 Blood Pressure 165/91 H 124/76 Pulse Oximetry 98 99 BMI result Body Mass Index 22.5 Labs Results: 05/13/21 07:03 05/13/21 07:03 Imaging Radiology Impressions: ITS Impressions Head CT 05/20/21 10:13 IMPRESSION: No acute intracranial pathology. Mild chronic volume loss with small vessel ischemic change. Medications Medications Current Medications Acetaminophen (Acetaminophen 325 Mg Tablet) 650 mg PO Q6H PRN PRN Reason: Headache/Pain Mild Scale (1-3) Al Hydroxide/Mg Hydroxide (Magnesium Hydrox/Alum Hydrox 30 Ml Oral.Susp) 30 ml PO Q6H PRN PRN Reason: Heartburn/Nausea Last Admin: 05/17/21 19:35 Dose: 30 ml Documented by: Hydroxyzine HCl (Hydroxyzine Hcl 25 Mg Tablet) 25 mg PO Q6H PRN PRN Reason: Anxiety Last Admin: 05/24/21 08:06 Dose: 25 mg Documented by: Magnesium Hydroxide (Milk Of Magnesia 30 Ml Oral.Susp) 30 ml PO DAILY PRN PRN Reason: Constipation Multivitamins/Vitamin C (Multivitamin Tablet) 1 tab PO DAILY [facility] Last Admin: 05/26/21 08:01 Dose: 1 tab Documented by: Patient Own Med (Terazosin 5) 1 each PO DAILY@1830 [facility] Last Admin: 05/25/21 18:13 Dose: 1 each Documented by: Nortriptyline HCl (Nortriptyline Hcl 25 Mg Capsule) 50 mg PO BEDTIME [facility] Last Admin: 05/25/21 20:49 Dose: 50 mg Documented by: Psyllium Hydrophilic Mucilloid (Psyllium Seed 3.4 Gm Powd.Pack) 3.4 gm PO DAILY [facility] Last Admin: 05/26/21 08:01 Dose: 3.4 gm Documented by: Quetiapine Fumarate (Quetiapine Fumarate 100 Mg Tablet) 100 mg PO BEDTIME [facility] Last Admin: 05/25/21 20:49 Dose: 100 mg Documented by: Senna (Senna [place] Extract Oral Syrup 15 Ml Syrup) 7.5 ml PO BEDTIME [facility] Last Admin: 05/25/21 20:50 Dose: 7.5 ml Documented by: Zolpidem Tartrate (Zolpidem Tartrate 5 Mg Tablet) 5 mg PO BEDTIME [facility] Last Admin: 05/25/21 20:49 Dose: 5 mg Documented by: Allergies Allergies Allergy/AdvReac Type Severity Reaction Status Date / Time No Known Allergies Allergy Verified 05/10/21 08:40 Assessment & Plan Assessment & Plan (1) MDD (major depressive disorder), recurrent severe, without psychosis: Status: Acute Code(s): F33.2 - Major depressive disorder, recurrent severe without psychotic features Assessment and Plan: The patient is an elderly male with a long history of anxiety and depression that worsened in the last months due to noncompliance to Lexapro. The patient stop Lexapro due to side effects. The patient has active suicidal ideation he needs inpatient level of care at this moment. Plan 1. Gather collateral information. 2. Continue Seroquel 100 mg p.o. q.h.s. to target insomnia and mood lability. 3. Keep Pamelor 50 mg p.o. q.h.s. to target depression and insomnia on 05/19 4. Pamelor level , waiting for results I spent minutes with the patient and/or on the patient floor today, greater than?50% of which was spent counseling/coordinating care. Reason for contiued inpatient stay Substantial Risk for: harm to self, rapid decompensation and med/psych decompensation
[2021-05-26 20:19] VITALS: BP 133/76; PULSE 101; RESP 18; TEMP 36.8; O2SAT 98
[2021-05-26] MEDS: Nortriptyline HCl 25 MG CAPSULE 50 MG PO (20:27)
[2021-05-26] MEDS: QUEtiapine Fumarate 100 MG TABLET PO (20:27)
[2021-05-26] MEDS: Zolpidem Tartrate 5 MG TABLET PO (20:28)
[2021-05-26 22:12] LABS: Nortriptyline 51 mcg/L (50-150)
[2021-05-27 07:00] VITALS: BMI 23.1
[2021-05-27] MEDS: Multivitamin TABLET 1 TAB PO (08:32)
[2021-05-27 09:28] VITALS: BP 126/77; PULSE 91; RESP 16; TEMP 37.1; O2SAT 97
[2021-05-27] MEDS: clonazePAM 0.5 MG TABLET 0.25 MG PO (12:37)
--- NOTE | 2021-05-27 14:39 | P.PNPSI_ITS ---
Subjective Subjective Date of Service: 05/27/21 Reason For Visit: depression,SI Subjective Notes: Conditional Voluntary Interim History: The nursing staff reported the patient slept well, he was or well dressed tap and he has his meals. The patient reported to the staff that is a sad time since he had so many losses in the past at this time. On interview, the patient reports better sleep, still dysphoric but he feels a little better. We discussed today that his Pamelor level came back on 51 and we will increased that to the lows at night up to 75 mg. Mental Status Exam Mental Status Exam Patient Appearance: Well Grooomed Patient Orientation: Person Level of Consciousness: Awake Patient Behavior: Cooperative Mood Description: Depressed Affect Description: Constricted Patient Cognition Impaired: No Ability to Follow Directions: Good Speech Pattern: Clear Hallucinations: None Delusions: Not Present Thought Process: Linear Thought Content: positive for Circumstantial Judgement: Fair Diagnostics Vital Signs (24Hr): Vital Signs - 24 hr 05/26/21 20:19 05/27/21 09:28 Temperature 98.2 F 98.8 F Pulse Rate 101 H 91 Respiratory Rate 18 16 Blood Pressure 133/76 126/77 Pulse Oximetry 98 97 BMI result Body Mass Index 23.1 Labs Results: 05/13/21 07:03 05/13/21 07:03 Labs: Laboratory Results - last 48 hr 05/23/21 06:09 Nortriptyline 51 Imaging Radiology Impressions: ITS Impressions Head CT 05/20/21 10:13 IMPRESSION: No acute intracranial pathology. Mild chronic volume loss with small vessel ischemic change. Medications Medications Current Medications Acetaminophen (Acetaminophen 325 Mg Tablet) 650 mg PO Q6H PRN PRN Reason: Headache/Pain Mild Scale (1-3) Al Hydroxide/Mg Hydroxide (Magnesium Hydrox/Alum Hydrox 30 Ml Oral.Susp) 30 ml PO Q6H PRN PRN Reason: Heartburn/Nausea Last Admin: 05/17/21 19:35 Dose: 30 ml Documented by: Clonazepam (Clonazepam 0.5 Mg Tablet) 0.25 mg PO TID PRN PRN Reason: Anxiety Last Admin: 05/27/21 12:37 Dose: 0.25 mg Documented by: Hydroxyzine HCl (Hydroxyzine Hcl 25 Mg Tablet) 25 mg PO Q6H PRN PRN Reason: Anxiety Last Admin: 05/24/21 08:06 Dose: 25 mg Documented by: Magnesium Hydroxide (Milk Of Magnesia 30 Ml Oral.Susp) 30 ml PO DAILY PRN PRN Reason: Constipation Multivitamins/Vitamin C (Multivitamin Tablet) 1 tab PO DAILY [facility] Last Admin: 05/27/21 08:32 Dose: 1 tab Documented by: Patient Own Med (Terazosin 5) 1 each PO DAILY@1830 [facility] Last Admin: 05/26/21 18:39 Dose: 1 each Documented by: Nortriptyline HCl (Nortriptyline Hcl 25 Mg Capsule) 75 mg PO BEDTIME [facility] Psyllium Hydrophilic Mucilloid (Psyllium Seed 3.4 Gm Powd.Pack) 3.4 gm PO DAILY [facility] [place] Last Admin: 05/27/21 08:32 Dose: 3.4 gm Documented by: Quetiapine Fumarate (Quetiapine Fumarate 100 Mg Tablet) 100 mg PO BEDTIME [facility] [place] Last Admin: 05/26/21 20:27 Dose: 100 mg Documented by: Senna (Senna [place] Extract Oral Syrup 15 Ml Syrup) 7.5 ml PO BEDTIME [facility] [place] Last Admin: 05/26/21 20:28 Dose: 7.5 ml Documented by: Zolpidem Tartrate (Zolpidem Tartrate 5 Mg Tablet) 5 mg PO BEDTIME [facility] [place] Last Admin: 05/26/21 20:28 Dose: 5 mg Documented by: Allergies Allergies Allergy/AdvReac Type Severity Reaction Status Date / Time No Known Allergies Allergy Verified 05/10/21 08:40 Assessment & Plan Assessment & Plan (1) MDD (major depressive disorder), recurrent severe, without psychosis: Status: Acute Code(s): F33.2 - Major depressive disorder, recurrent severe without psychotic features Assessment and Plan: The patient is an elderly male with a long history of anxiety and depression that worsened in the last months due to noncompliance to Lexapro. The patient stop Lexapro due to side effects. The patient has active suicidal ideation he needs inpatient level of care at this moment. Plan 1. Gather collateral information. 2. Continue Seroquel 100 mg p.o. q.h.s. to target insomnia and mood lability. 3. Increase Pamelor up to 75 mg p.o. q.h.s. to target depression and insomnia on 05/29 4. We will discharge to an [facility], family is looking for a suitable placement. I spent minutes with the patient and/or on the patient floor today, greater than?50% of which was spent counseling/coordinating care. Reason for contiued inpatient stay Substantial Risk for: harm to self, inability to function, rapid decompensation and med/psych decompensation
[2021-05-27 20:10] VITALS: BP 120/66; PULSE 99; RESP 18; TEMP 36.9; O2SAT 98
[2021-05-27] MEDS: Nortriptyline HCl 25 MG CAPSULE 75 MG PO (20:41)
[2021-05-27] MEDS: QUEtiapine Fumarate 100 MG TABLET PO (20:42)
[2021-05-27] MEDS: Zolpidem Tartrate 5 MG TABLET PO (20:43)
[2021-05-28 06:00] VITALS: BP 145/81; PULSE 91; RESP 18; TEMP 36.4; O2SAT 99
[2021-05-28] MEDS: Multivitamin TABLET 1 TAB PO (07:39)
[2021-05-28] MEDS: clonazePAM 0.5 MG TABLET 0.25 MG PO ×2 (14:19→22:53)
--- NOTE | 2021-05-28 14:44 | P.PNPSI_ITS ---
Subjective Subjective Date of Service: 05/28/21 Reason For Visit: depression,SI Subjective Notes: Conditional Voluntary Interim History: The patient reports mild improvement of his dysphoria, sporadically he has insomnia. According to the staff, his brother has been disruptive during the visits. The social work faculty member has talk with the knees and they are working on a proper [facility] discharge. On interview, the patient reports that he is feeling a little better. Mental Status Exam Mental Status Exam Patient Appearance: Well Grooomed Patient Orientation: Person Level of Consciousness: Awake Patient Behavior: Cooperative Mood Description: Depressed Affect Description: Constricted Patient Cognition Impaired: No Ability to Follow Directions: Good Speech Pattern: Clear Hallucinations: None Delusions: Not Present Thought Process: Linear Thought Content: positive for Circumstantial and positive for Poverty of Content Judgement: Fair Diagnostics Vital Signs (24Hr): Vital Signs - 24 hr 05/27/21 20:10 05/28/21 06:00 Temperature 98.4 F 97.6 F Pulse Rate 99 91 Respiratory Rate 18 18 Blood Pressure 120/66 145/81 H Pulse Oximetry 98 99 BMI result Body Mass Index 23.1 Labs Results: 05/13/21 07:03 05/13/21 07:03 Labs: Laboratory Results - last 48 hr 05/23/21 06:09 Nortriptyline 51 Imaging Radiology Impressions: ITS Impressions Head CT 05/20/21 10:13 IMPRESSION: No acute intracranial pathology. Mild chronic volume loss with small vessel ischemic change. Medications Medications Current Medications Acetaminophen (Acetaminophen 325 Mg Tablet) 650 mg PO Q6H PRN PRN Reason: Headache/Pain Mild Scale (1-3) Al Hydroxide/Mg Hydroxide (Magnesium Hydrox/Alum Hydrox 30 Ml Oral.Susp) 30 ml PO Q6H PRN PRN Reason: Heartburn/Nausea Last Admin: 05/17/21 19:35 Dose: 30 ml Documented by: Clonazepam (Clonazepam 0.5 Mg Tablet) 0.25 mg PO TID PRN PRN Reason: Anxiety Last Admin: 05/28/21 14:19 Dose: 0.25 mg Documented by: Hydroxyzine HCl (Hydroxyzine Hcl 25 Mg Tablet) 25 mg PO Q6H PRN PRN Reason: Anxiety Last Admin: 05/24/21 08:06 Dose: 25 mg Documented by: Magnesium Hydroxide (Milk Of Magnesia 30 Ml Oral.Susp) 30 ml PO DAILY PRN PRN Reason: Constipation Multivitamins/Vitamin C (Multivitamin Tablet) 1 tab PO DAILY [facility] Last Admin: 05/28/21 07:39 Dose: 1 tab Documented by: Patient Own Med (Terazosin 5) 1 each PO DAILY@1830 [facility] Last Admin: 05/27/21 18:24 Dose: 1 each Documented by: Nortriptyline HCl (Nortriptyline Hcl 25 Mg Capsule) 75 mg PO BEDTIME [facility] Last Admin: 05/27/21 20:41 Dose: 75 mg Documented by: Psyllium Hydrophilic Mucilloid (Psyllium Seed 3.4 Gm Powd.Pack) 3.4 gm PO DAILY [facility] Last Admin: 05/28/21 07:39 Dose: 3.4 gm Documented by: Quetiapine Fumarate (Quetiapine Fumarate 100 Mg Tablet) 100 mg PO BEDTIME [facility] Last Admin: 05/27/21 20:42 Dose: 100 mg Documented by: Senna (Senna [place] Extract Oral Syrup 15 Ml Syrup) 7.5 ml PO BEDTIME [facility] Last Admin: 05/27/21 20:42 Dose: 7.5 ml Documented by: Zolpidem Tartrate (Zolpidem Tartrate 5 Mg Tablet) 5 mg PO BEDTIME [facility] Last Admin: 05/27/21 20:43 Dose: 5 mg Documented by: Allergies Allergies Allergy/AdvReac Type Severity Reaction Status Date / Time No Known Allergies Allergy Verified 05/10/21 08:40 Assessment & Plan Assessment & Plan (1) MDD (major depressive disorder), recurrent severe, without psychosis: Status: Acute Code(s): F33.2 - Major depressive disorder, recurrent severe without psychotic features Assessment and Plan: The patient is an elderly male with a long history of anxiety and depression that worsened in the last months due to noncompliance to Lexapro. The patient stop Lexapro due to side effects. The patient has active suicidal ideation he needs inpatient level of care at this moment. Plan 1. Gather collateral information. 2. Continue Seroquel 100 mg p.o. q.h.s. to target insomnia and mood lability. 3. Increase Pamelor up to 75 mg p.o. q.h.s. to target depression and insomnia on 05/29 4. We will discharge to an [facility], family is looking for a suitable placement. I spent minutes with the patient and/or on the patient floor today, greater than?50% of which was spent counseling/coordinating care. Reason for contiued inpatient stay Substantial Risk for: harm to self, inability to function, rapid decompensation and med/psych decompensation
[2021-05-28 18:00] VITALS: BP 141/84; PULSE 94; RESP 18; TEMP 37; O2SAT 98
[2021-05-28] MEDS: Nortriptyline HCl 25 MG CAPSULE 75 MG PO (21:12)
[2021-05-28] MEDS: QUEtiapine Fumarate 100 MG TABLET PO (21:13)
[2021-05-29 06:00] VITALS: BP 135/75; PULSE 96; RESP 18; TEMP 36.6; O2SAT 97
[2021-05-29] MEDS: Multivitamin TABLET 1 TAB PO (08:34)
--- NOTE | 2021-05-29 08:52 | P.PNPSI_ITS ---
Subjective Subjective Date of Service: 05/29/21 Reason For Visit: depression,SI Subjective Notes: Conditional Voluntary Interim History: The nursing staff report that the patient could not take his Ambien last night and he complained of poor sleep. On interview, the patient reported poor sleep since he was not taking Ambien, his mood is slightly better. No side effects with other medications Mental Status Exam Mental Status Exam Patient Appearance: Well Grooomed Patient Orientation: Person Level of Consciousness: Awake Patient Behavior: Cooperative Mood Description: Constricted Affect Description: Constricted Patient Cognition Impaired: No Ability to Follow Directions: Good Speech Pattern: Appropriate Memory Description: Intact Hallucinations: None Delusions: Not Present Thought Process: Linear Thought Content: positive for Circumstantial Judgement: Fair Diagnostics Vital Signs (24Hr): Vital Signs - 24 hr 05/28/21 18:00 Temperature 98.6 F Pulse Rate 94 Respiratory Rate 18 Blood Pressure 141/84 H Pulse Oximetry 98 BMI result Body Mass Index 23.1 Labs Results: 05/13/21 07:03 05/13/21 07:03 Imaging Radiology Impressions: ITS Impressions Head CT 05/20/21 10:13 IMPRESSION: No acute intracranial pathology. Mild chronic volume loss with small vessel ischemic change. Medications Medications Current Medications Acetaminophen (Acetaminophen 325 Mg Tablet) 650 mg PO Q6H PRN PRN Reason: Headache/Pain Mild Scale (1-3) Al Hydroxide/Mg Hydroxide (Magnesium Hydrox/Alum Hydrox 30 Ml Oral.Susp) 30 ml PO Q6H PRN PRN Reason: Heartburn/Nausea Last Admin: 05/17/21 19:35 Dose: 30 ml Documented by: Clonazepam (Clonazepam 0.5 Mg Tablet) 0.25 mg PO TID PRN PRN Reason: Anxiety Last Admin: 05/28/21 22:53 Dose: 0.25 mg Documented by: Hydroxyzine HCl (Hydroxyzine Hcl 25 Mg Tablet) 25 mg PO Q6H PRN PRN Reason: Anxiety Last Admin: 05/24/21 08:06 Dose: 25 mg Documented by: Magnesium Hydroxide (Milk Of Magnesia 30 Ml Oral.Susp) 30 ml PO DAILY PRN PRN Reason: Constipation Multivitamins/Vitamin C (Multivitamin Tablet) 1 tab PO DAILY [facility] Last Admin: 05/29/21 08:34 Dose: 1 tab Documented by: Patient Own Med (Terazosin 5) 1 each PO DAILY@1830 [facility] Last Admin: 05/28/21 19:42 Dose: 1 each Documented by: Nortriptyline HCl (Nortriptyline Hcl 25 Mg Capsule) 75 mg PO BEDTIME [facility] Last Admin: 05/28/21 21:12 Dose: 75 mg Documented by: Psyllium Hydrophilic Mucilloid (Psyllium Seed 3.4 Gm Powd.Pack) 3.4 gm PO DAILY [facility] Last Admin: 05/29/21 08:34 Dose: 3.4 gm Documented by: Quetiapine Fumarate (Quetiapine Fumarate 100 Mg Tablet) 100 mg PO BEDTIME [facility] Last Admin: 05/28/21 21:13 Dose: 100 mg Documented by: Senna (Senna [place] Extract Oral Syrup 15 Ml Syrup) 7.5 ml PO BEDTIME [facility] Last Admin: 05/28/21 21:13 Dose: 7.5 ml Documented by: Allergies Allergies Allergy/AdvReac Type Severity Reaction Status Date / Time No Known Allergies Allergy Verified 05/10/21 08:40 Assessment & Plan Assessment & Plan (1) MDD (major depressive disorder), recurrent severe, without psychosis: Status: Acute Code(s): F33.2 - Major depressive disorder, recurrent severe without psychotic features Assessment and Plan: The patient is an elderly male with a long history of anxiety and depression that worsened in the last months due to noncompliance to Lexapro. The patient stop Lexapro due to side effects. The patient has active suicidal ideation he needs inpatient level of care at this moment. Plan 1. Gather collateral information. 2. Continue Seroquel 100 mg p.o. q.h.s. to target insomnia and mood lability. 3. Increase Pamelor up to 75 mg p.o. q.h.s. to target depression and insomnia on 05/29 4. New Pamelor level for next Monday 5.. We will discharge to an [facility], family is looking for a suitable placement. I spent minutes with the patient and/or on the patient floor today, gre ater than?50% of which was spent counseling/coordinating care. Reason for contiued inpatient stay Substantial Risk for: inability to function, rapid decompensation and med/psych decompensation
[2021-05-29 17:59] VITALS: BP 145/79; PULSE 96; RESP 16; O2SAT 98
[2021-05-29] MEDS: Zolpidem Tartrate 5 MG TABLET PO (20:41)
[2021-05-29] MEDS: Nortriptyline HCl 25 MG CAPSULE 75 MG PO (20:41)
[2021-05-29] MEDS: QUEtiapine Fumarate 100 MG TABLET PO (20:41)
[2021-05-30] MEDS: Multivitamin TABLET 1 TAB PO (08:46)
[2021-05-30 08:54] VITALS: BP 125/77; PULSE 100; RESP 14; TEMP 36.5; O2SAT 98
--- NOTE | 2021-05-30 09:39 | P.PNPSI_ITS ---
Subjective Subjective Date of Service: 05/30/21 Reason For Visit: depression,SI Subjective Notes: Conditional Voluntary Interim History: The nursing staff reported the patient has been pleasant and cooperative, fully compliant with treatment. On interview the patient reported that he needed Ambien to sleep last night. He stated that his anxiety and depression has improved slightly with the current interventions. No active suicidal ideation, he is able to contract for safety. Mental Status Exam Mental Status Exam Patient Appearance: Well Grooomed Patient Orientation: Person Level of Consciousness: Awake Patient Behavior: Cooperative Mood Description: Depressed Affect Description: Constricted Patient Cognition Impaired: No Ability to Follow Directions: Good Speech Pattern: Clear Hallucinations: None Delusions: Not Present Thought Process: Linear Thought Content: positive for Circumstantial Judgement: Fair Diagnostics Vital Signs (24Hr): Vital Signs - 24 hr 05/29/21 17:59 05/30/21 08:54 Temperature 97.7 F Pulse Rate 96 100 Respiratory Rate 16 14 Blood Pressure 145/79 H 125/77 Pulse Oximetry 98 98 BMI result Body Mass Index 23.1 Labs Results: 05/13/21 07:03 05/13/21 07:03 Imaging Radiology Impressions: ITS Impressions Head CT 05/20/21 10:13 IMPRESSION: No acute intracranial pathology. Mild chronic volume loss with small vessel ischemic change. Medications Medications Current Medications Acetaminophen (Acetaminophen 325 Mg Tablet) 650 mg PO Q6H PRN PRN Reason: Headache/Pain Mild Scale (1-3) Al Hydroxide/Mg Hydroxide (Magnesium Hydrox/Alum Hydrox 30 Ml Oral.Susp) 30 ml PO Q6H PRN PRN Reason: Heartburn/Nausea Last Admin: 05/17/21 19:35 Dose: 30 ml Documented by: Clonazepam (Clonazepam 0.5 Mg Tablet) 0.25 mg PO TID PRN PRN Reason: Anxiety Last Admin: 05/28/21 22:53 Dose: 0.25 mg Documented by: Hydroxyzine HCl (Hydroxyzine Hcl 25 Mg Tablet) 25 mg PO Q6H PRN PRN Reason: Anxiety Last Admin: 05/24/21 08:06 Dose: 25 mg Documented by: Magnesium Hydroxide (Milk Of Magnesia 30 Ml Oral.Susp) 30 ml PO DAILY PRN PRN Reason: Constipation Multivitamins/Vitamin C (Multivitamin Tablet) 1 tab PO DAILY [facility] Last Admin: 05/30/21 08:46 Dose: 1 tab Documented by: Patient Own Med (Terazosin 5) 1 each PO DAILY@1830 [facility] Last Admin: 05/29/21 18:35 Dose: 1 each Documented by: Nortriptyline HCl (Nortriptyline Hcl 25 Mg Capsule) 75 mg PO BEDTIME [facility] Last Admin: 05/29/21 20:41 Dose: 75 mg Documented by: Psyllium Hydrophilic Mucilloid (Psyllium Seed 3.4 Gm Powd.Pack) 3.4 gm PO DAILY [facility] Last Admin: 05/30/21 09:30 Dose: Not Given Documented by: Quetiapine Fumarate (Quetiapine Fumarate 100 Mg Tablet) 100 mg PO BEDTIME [facility] Last Admin: 05/29/21 20:41 Dose: 100 mg Documented by: Senna (Senna [place] Extract Oral Syrup 15 Ml Syrup) 7.5 ml PO BEDTIME [facility] Last Admin: 05/29/21 20:41 Dose: 7.5 ml Documented by: Zolpidem Tartrate (Zolpidem Tartrate 5 Mg Tablet) 5 mg PO BEDTIME [facility] Last Admin: 05/29/21 20:41 Dose: 5 mg Documented by: Allergies Allergies Allergy/AdvReac Type Severity Reaction Status Date / Time No Known Allergies Allergy Verified 05/10/21 08:40 Assessment & Plan Assessment & Plan (1) MDD (major depressive disorder), recurrent severe, without psychosis: Status: Acute Code(s): F33.2 - Major depressive disorder, recurrent severe without psychotic features Assessment and Plan: The patient is an elderly male with a long history of anxiety and depression that worsened in the last months due to noncompliance to Lexapro. The patient stop Lexapro due to side effects. The patient has active suicidal ideation he needs inpatient level of care at this moment. Plan 1. Gather collateral information. 2. Continue Seroquel 100 mg p.o. q.h.s. to target insomnia and mood lability. 3. Increase Pamelor up to 75 mg p.o. q.h.s. to target depression and insomnia on 05/29 4. New Pamelor level for next Monday 5. We will discharge to an [facility], family is looking for a suitable placement. I spent minutes with the patient and/or on the patient floor today, greater than?50% of which was spent counseling/coordinating care. Reason for contiued inpatient stay Substantial Risk for: harm to self, inability to function, rapid decompensation and med/psych decompensation
[2021-05-30 18:00] VITALS: BP 133/94; PULSE 109; RESP 18; TEMP 36.6; O2SAT 97
[2021-05-30] MEDS: Nortriptyline HCl 25 MG CAPSULE 75 MG PO (20:37)
[2021-05-30] MEDS: QUEtiapine Fumarate 100 MG TABLET PO (20:37)
[2021-05-30] MEDS: Zolpidem Tartrate 5 MG TABLET PO (20:37)
[2021-05-31 08:00] VITALS: BP 118/67; PULSE 89; RESP 14; TEMP 36.7; O2SAT 97
[2021-05-31] MEDS: Multivitamin TABLET 1 TAB PO (08:11)
--- NOTE | 2021-05-31 17:36 | P.PNPSI_ITS ---
Subjective Subjective Date of Service: 05/31/21 Reason For Visit: depression,SI Interim History: I evaluated the pt this evening and upon interview he reports Im doing alright. Says he has been taking ambien, however does not like SE on drug hangover effect, when i wake up im lucio ortiz, says this continues throughout the day. Says one night he didnt have ambien and he was given klo nopin 0.25 mg, says this helped and he did not have hangover effect, I got up in morning and felt better. Says his main thing is sleep. Mood is basically okay, but does not like the drug hangover effect stating when you got that feeling its easy to go into depression, and ambien makes you want to take naps. Says I want my energy back, I wanna be clear headed. Wants to discontinue ambien, says ambien isnt the answer. Denies SI/SIB upon inquiry and says he feels safe, no questions or concerns. Review of Systems Acute medical concerns: No Medical Review of Systems: unchanged Mental Status Exam Mental Status Exam Narrative: well groomed male, alert, oriented x 03. cooperative. No psychomotor agitation or retardation noted. Ambulating with walker. Speech is clear, normal rate/rhythm/volume, spontaneous. Mood basically okay affect is congruent, somewhat irritable. AH/VH: none Delusions: none. SI: none TP: linear. TC: without psychosis/delusional content, less hopeless, more future oriented Insight/judgment: fair x 2. Diagnostics Vital Signs (24Hr): Vital Signs - 24 hr 05/30/21 18:00 05/31/21 08:00 Temperature 98 F 98.1 F Pulse Rate 109 H 89 Respiratory Rate 18 14 Blood Pressure 133/94 H 118/67 Pulse Oximetry 97 97 BMI result Body Mass Index 23.1 Labs Results: 05/13/21 07:03 05/13/21 07:03 Imaging Radiology Impressions: ITS Impressions Head CT 05/20/21 10:13 IMPRESSION: No acute intracranial pathology. Mild chronic volume loss with small vessel ischemic change. Medications Medications Current Medications Acetaminophen (Acetaminophen 325 Mg Tablet) 650 mg PO Q6H PRN PRN Reason: Headache/Pain Mild Scale (1-3) Al Hydroxide/Mg Hydroxide (Magnesium Hydrox/Alum Hydrox 30 Ml Oral.Susp) 30 ml PO Q6H PRN PRN Reason: Heartburn/Nausea Last Admin: 05/17/21 19:35 Dose: 30 ml Documented by: Hydroxyzine HCl (Hydroxyzine Hcl 25 Mg Tablet) 25 mg PO Q6H PRN PRN Reason: Anxiety Last Admin: 05/24/21 08:06 Dose: 25 mg Documented by: Magnesium Hydroxide (Milk Of Magnesia 30 Ml Oral.Susp) 30 ml PO DAILY PRN PRN Reason: Constipation Multivitamins/Vitamin C (Multivitamin Tablet) 1 tab PO DAILY [facility] Last Admin: 05/31/21 08:11 Dose: 1 tab Documented by: Patient Own Med (Terazosin 5) 1 each PO DAILY@1830 [facility] Last Admin: 05/30/21 17:38 Dose: 1 each Documented by: Nortriptyline HCl (Nortriptyline Hcl 25 Mg Capsule) 75 mg PO BEDTIME [facility] Last Admin: 05/30/21 20:37 Dose: 75 mg Documented by: Psyllium Hydrophilic Mucilloid (Psyllium Seed 3.4 Gm Powd.Pack) 3.4 gm PO DAILY [facility] Last Admin: 05/31/21 08:11 Dose: 3.4 gm Documented by: Quetiapine Fumarate (Quetiapine Fumarate 100 Mg Tablet) 100 mg PO BEDTIME [facility] Last Admin: 05/30/21 20:37 Dose: 100 mg Documented by: Senna (Senna [place] Extract Oral Syrup 15 Ml Syrup) 7.5 ml PO BEDTIME [facility] Last Admin: 05/30/21 20:36 Dose: 7.5 ml Documented by: Zolpidem Tartrate (Zolpidem Tartrate 5 Mg Tablet) 5 mg PO BEDTIME [facility] Last Admin: 05/30/21 20:37 Dose: 5 mg Documented by: Allergies Allergies Allergy/AdvReac Type Severity Reaction Status Date / Time No Known Allergies Allergy Verified 05/10/21 08:40 Assessment & Plan Assessment & Plan (1) MDD (major depressive disorder), recurrent severe, without psychosis: Status: Acute Code(s): F33.2 - Major depressive disorder, recurrent severe without psychotic features Assessment and Plan: The patient is an elderly male with a long history of anxiety and depression that worsened in the last months due to noncompliance to Lexapro. The patient stop Lexapro due to side effects. The patient has active suicidal ideation he needs inpatient level of care at this moment. Plan 1. Gather collateral information. 2. Continue Seroquel 100 mg p.o. q.h.s. to target insomnia and mood lability. 3. Increase Pamelor up to 75 mg p.o. q.h.s. to target depression and insomnia on 05/29 4. New Pamelor level for next Monday 5. We will discharge to an [facility], family is looking for a suitable placement. 05/31: discontinue ambien and start klonopin 0.25 mg QHS for insomnia. Reviewed risks and benefits. I spent minutes with the patient and/or on the patient floor today, greater than?50% of which was spent counseling/coordinating care. Reason for contiued inpatient stay Substantial Risk for: med/psych decompensation
[2021-05-31 18:00] VITALS: BP 139/87; PULSE 99; RESP 18; TEMP 36.6; O2SAT 98
[2021-05-31] MEDS: Nortriptyline HCl 25 MG CAPSULE 75 MG PO (21:22)
[2021-05-31] MEDS: clonazePAM 0.5 MG TABLET 0.25 MG PO (21:22)
[2021-05-31] MEDS: QUEtiapine Fumarate 100 MG TABLET PO (21:23)
[2021-05-31 23:12] LABS: Influenza A PCR NEGATIVE (Negative); Influenza B PCR NEGATIVE (Negative); Resp Syncy Virus RNA Qual PCR NEGATIVE (Negative); SARS COV2 PCR INHOUSE NEGATIVE (Negative)
[2021-06-01 07:30] VITALS: BP 114/64; PULSE 78; RESP 14; TEMP 36.9; O2SAT 96
[2021-06-01] MEDS: Multivitamin TABLET 1 TAB PO (08:32)
--- NOTE | 2021-06-01 10:52 | HO.PSYCHPN ---
Subjective Subjective Date of Service: 06/01/21 Reason For Visit: depression,SI Interim History: Pt reports he slept last night with medication change- decrease ambien. Pt reports not feeling groggy this morning as he has been feelnig with higher dose of ambien. Pt reports mood improved in that he is less depressed. He reports appetite better. He denies SI/HI. He notes he has good days and some bad days, but seen more positive days. No behavioral concerns. He denies chest pain, no SOB, no cough. afebrile. tested negative for covid on 05/31 due to unit outbreak. Medication Compliance: Yes Side effects from medications: No Review of Systems Review of Systems Unremarkable Mental Status Exam Mental Status Exam Narrative: well groomed male, alert, oriented x 03. cooperative. No psychomotor agitation or retardation noted. Ambulating with walker. Speech is clear, normal rate/rhythm/volume, spontaneous. Mood less depressed, affect is slightly brighter, mostly constricted. AH/VH: none Delusions: none. SI: passive but denies intent ot plan. TP: linear. TC: without psychosis/delusional content, very hopeless/helpless. Insight/judgment: fair x 2. Diagnostics Vital Signs (24Hr): Vital Signs - 24 hr 05/31/21 18:00 Temperature 97.8 F Pulse Rate 99 Respiratory Rate 18 Blood Pressure 139/87 Pulse Oximetry 98 BMI result Body Mass Index 23.1 Labs Results: 05/13/21 07:03 05/13/21 07:03 Labs: Laboratory Results - last 48 hr 05/31/21 21:25 Influenza Type A (PCR) NEGATIVE Influenza Type B (PCR) NEGATIVE RSV RNA Qual (PCR) NEGATIVE SARS-CoV-2 RNA (RT-PCR) NEGATIVE Imaging Radiology Impressions: ITS Impressions Head CT 05/20/21 10:13 IMPRESSION: No acute intracranial pathology. Mild chronic volume loss with small vessel ischemic change. Medications Medications Current Medications Acetaminophen (Acetaminophen 325 Mg Tablet) 650 mg PO Q6H PRN PRN Reason: Headache/Pain Mild Scale (1-3) Al Hydroxide/Mg Hydroxide (Magnesium Hydrox/Alum Hydrox 30 Ml Oral.Susp) 30 ml PO Q6H PRN PRN Reason: Heartburn/Nausea Last Admin: 05/17/21 19:35 Dose: 30 ml Documented by: Clonazepam (Clonazepam 0.5 Mg Tablet) 0.25 mg PO BEDTIME [facility] Last Admin: 05/31/21 21:22 Dose: 0.25 mg Documented by: Hydroxyzine HCl (Hydroxyzine Hcl 25 Mg Tablet) 25 mg PO Q6H PRN PRN Reason: Anxiety Last Admin: 05/24/21 08:06 Dose: 25 mg Documented by: Magnesium Hydroxide (Milk Of Magnesia 30 Ml Oral.Susp) 30 ml PO DAILY PRN PRN Reason: Constipation Multivitamins/Vitamin C (Multivitamin Tablet) 1 tab PO DAILY [facility] Last Admin: 06/01/21 08:32 Dose: 1 tab Documented by: Patient Own Med (Terazosin 5) 1 each PO DAILY@1830 [facility] Last Admin: 05/31/21 18:29 Dose: 1 each Documented by: Nortriptyline HCl (Nortriptyline Hcl 25 Mg Capsule) 75 mg PO BEDTIME [facility] Last Admin: 05/31/21 21:22 Dose: 75 mg Documented by: Psyllium Hydrophilic Mucilloid (Psyllium Seed 3.4 Gm Powd.Pack) 3.4 gm PO DAILY [facility] Last Admin: 06/01/21 08:32 Dose: 3.4 gm Documented by: Quetiapine Fumarate (Quetiapine Fumarate 100 Mg Tablet) 100 mg PO BEDTIME [facility] Last Admin: 05/31/21 21:23 Dose: 100 mg Documented by: Senna (Senna [place] Extract Oral Syrup 15 Ml Syrup) 7.5 ml PO BEDTIME [facility] Last Admin: 05/31/21 21:22 Dose: 7.5 ml Documented by: Allergies Allergies Allergy/AdvReac Type Severity Reaction Status Date / Time No Known Allergies Allergy Verified 05/10/21 08:40 Assessment & Plan Assessment & Plan (1) MDD (major depressive disorder), recurrent severe, without psychosis: Status: Acute Code(s): F33.2 - Major depressive disorder, recurrent severe without psychotic features Assessment and Plan: The patient is an elderly male with a long history of anxiety and depression that worsened in the last months due to noncompliance to Lexapro. The patient stop Lexapro due to side effects. The patient has active suicidal ideation he needs inpatient level of care at this moment. Plan 1. Gather collateral information. 2. Continue Seroquel 100 mg p.o. q.h.s. to target insomnia and mood lability. 3. Increase Pamelor up to 75 mg p.o. q.h.s. to target depression and insomnia on 05/29 4. New Pamelor level for next Monday 5. We will discharge to an [facility], family is looking for a suitable placement. 06/01- continue current medications. covid negative on 05/31. no sob, no chest pain, afebrile, no cough. I spent minutes with the patient and/or on the patient floor today, greater than?50% of which was spent counseling/coordinating care. Reason for contiued inpatient stay Substantial Risk for: inability to function
[2021-06-01 18:00] VITALS: BP 149/75; PULSE 90; RESP 18; O2SAT 98
[2021-06-01] MEDS: Nortriptyline HCl 25 MG CAPSULE 75 MG PO (21:05)
[2021-06-01] MEDS: QUEtiapine Fumarate 100 MG TABLET PO (21:43)
[2021-06-01] MEDS: clonazePAM 0.5 MG TABLET 0.25 MG PO (21:43)
[2021-06-02] MEDS: Multivitamin TABLET 1 TAB PO (10:05)
--- NOTE | 2021-06-02 13:06 | HO.PSYCHPN ---
Subjective Subjective Date of Service: 06/02/21 Reason For Visit: depression,SI Subjective Notes: Conditional Voluntary Interim History: Pt continues to report that he had good night sleep with medications without feeling tired or sedated in the morning. Pt reports his mood has significantly improved since he was admitted in that he is more positive about his life, less negative thoughts. He denies SI/HI. No behavioral concerns pt expresses mild frustration about having to be in room due to positive covid pts on unit. Pt does not have any s/s of covid including cough, fever, SOB, GI. Medication Compliance: Yes Side effects from medications: No Attending Groups: No Review of Systems Review of Systems Unremarkable Mental Status Exam Mental Status Exam Narrative: well groomed male, alert, oriented x 03. cooperative. No psychomotor agitation or retardation noted. Ambulating with walker. Speech is clear, normal rate/rhythm/volume, spontaneous. Mood much better affect is congruent, brighter. AH/VH: none Delusions: none. SI: none TP: linear. TC: without psychosis/delusional content, less hopeless, more future oriented Insight/judgment: fair x 2. Diagnostics Vital Signs (24Hr): Vital Signs - 24 hr 06/01/21 18:00 Pulse Rate 90 Respiratory Rate 18 Blood Pressure 149/75 H Pulse Oximetry 98 BMI result Body Mass Index 23.1 Labs Results: 05/13/21 07:03 05/13/21 07:03 Labs: Laboratory Results - last 48 hr 05/31/21 21:25 Influenza Type A (PCR) NEGATIVE Influenza Type B (PCR) NEGATIVE RSV RNA Qual (PCR) NEGATIVE SARS-CoV-2 RNA (RT-PCR) NEGATIVE Imaging Radiology Impressions: ITS Impressions Head CT 05/20/21 10:13 IMPRESSION: No acute intracranial pathology. Mild chronic volume loss with small vessel ischemic change. Medications Medications Current Medications Acetaminophen (Acetaminophen 325 Mg Tablet) 650 mg PO Q6H PRN PRN Reason: Headache/Pain Mild Scale (1-3) Al Hydroxide/Mg Hydroxide (Magnesium Hydrox/Alum Hydrox 30 Ml Oral.Susp) 30 ml PO Q6H PRN PRN Reason: Heartburn/Nausea Last Admin: 05/17/21 19:35 Dose: 30 ml Documented by: Clonazepam (Clonazepam 0.5 Mg Tablet) 0.25 mg PO BEDTIME [facility] Last Admin: 06/01/21 21:43 Dose: 0.25 mg Documented by: Hydroxyzine HCl (Hydroxyzine Hcl 25 Mg Tablet) 25 mg PO Q6H PRN PRN Reason: Anxiety Last Admin: 05/24/21 08:06 Dose: 25 mg Documented by: Magnesium Hydroxide (Milk Of Magnesia 30 Ml Oral.Susp) 30 ml PO DAILY PRN PRN Reason: Constipation Multivitamins/Vitamin C (Multivitamin Tablet) 1 tab PO DAILY REPLACED BY [facility] Last Admin: 06/02/21 10:05 Dose: 1 tab Documented by: Patient Own Med (Terazosin 5) 1 each PO DAILY@1830 REPLACED BY [facility] Last Admin: 06/01/21 18:01 Dose: 1 each Documented by: Nortriptyline HCl (Nortriptyline Hcl 25 Mg Capsule) 75 mg PO BEDTIME REPLACED BY [facility] Last Admin: 06/01/21 21:05 Dose: 75 mg Documented by: Psyllium Hydrophilic Mucilloid (Psyllium Seed 3.4 Gm Powd.Pack) 3.4 gm PO DAILY REPLACED BY [facility] Last Admin: 06/02/21 10:05 Dose: 3.4 gm Documented by: Quetiapine Fumarate (Quetiapine Fumarate 100 Mg Tablet) 100 mg PO BEDTIME REPLACED BY [facility] Last Admin: 06/01/21 21:43 Dose: 100 mg Documented by: Senna (Senna [place] Extract Oral Syrup 15 Ml Syrup) 7.5 ml PO BEDTIME REPLACED BY [facility] Last Admin: 06/01/21 21:06 Dose: 7.5 ml Documented by: Allergies Allergies Allergy/AdvReac Type Severity Reaction Status Date / Time No Known Allergies Allergy Verified 05/10/21 08:40 Assessment & Plan Assessment & Plan (1) MDD (major depressive disorder), recurrent severe, without psychosis: Status: Acute Code(s): F33.2 - Major depressive disorder, recurrent severe without psychotic features Assessment and Plan: The patient is an elderly male with a long history of anxiety and depression that worsened in the last months due to noncompliance to Lexapro. The patient stop Lexapro due to side effects. The patient has active suicidal ideation he needs inpatient level of care at this moment. Plan 1. Gather collateral information. 2. Continue Seroquel 100 mg p.o. q.h.s. to target insomnia and mood lability. 3. Increase Pamelor up to 75 mg p.o. q.h.s. to target depression and insomnia on 05/29 4. New Pamelor level for next Monday 5. We will discharge to an [facility], family is looking for a suitable placement. 06/01- continue current medications. covid negative on 05/31. no sob, no chest pain, afebrile, no cough. 06/02- continues to report improvement in symptoms of depression, less hopeless, more future oriented, no SI/HI. I spent minutes with the patient and/or on the patient floor today, greater than?50% of which was spent counseling/coordinating care. Reason for contiued inpatient stay Substantial Risk for: harm to self
[2021-06-02 18:00] VITALS: BP 118/75; PULSE 100; RESP 16; TEMP 36.8; O2SAT 99
[2021-06-02] MEDS: clonazePAM 0.5 MG TABLET 0.25 MG PO (20:45)
[2021-06-02] MEDS: QUEtiapine Fumarate 100 MG TABLET PO (20:45)
[2021-06-02] MEDS: Nortriptyline HCl 25 MG CAPSULE 75 MG PO (20:46)
[2021-06-03 07:00] VITALS: BMI 23.5
[2021-06-03 08:00] VITALS: BP 157/82; PULSE 102; TEMP 36.4; O2SAT 97
[2021-06-03] MEDS: Multivitamin TABLET 1 TAB PO (08:18)
--- NOTE | 2021-06-03 09:43 | P.PNPSI_ITS ---
Subjective Subjective Date of Service: 06/03/21 Reason For Visit: depression,SI Subjective Notes: Conditional Voluntary Interim History: Pt reports last night it took him bit longer to fall asleep and woke early. Overall feels much better with clonazepam than ambien as he does not have next day sedation/grogginess. Pt reports has improved in that he is less depressed, more optimistic about his future. No SI/HI. We discussed either increasing clonazepam to 0.5mg po qhs or to switch to ativan as it may help him fall asleep faster. pt prefers to increase clonazepam. Reviewed VS- BP slightly elevated 157/82, HR 102 continue to monitor. Medication Compliance: Yes Side effects from medications: No Attending Groups: No Review of Systems Review of Systems Unremarkable Diagnostics Vital Signs (24Hr): Vital Signs - 24 hr 06/02/21 18:00 06/03/21 08:00 Temperature 98.2 F 97.6 F Pulse Rate 100 102 H Respiratory Rate 16 Blood Pressure 118/75 157/82 H Pulse Oximetry 99 97 BMI result Body Mass Index 23.1 Labs Results: 05/13/21 07:03 05/13/21 07:03 Labs: Laboratory Results - last 48 hr 06/03/21 11:00 COVID-19 ([facility]) Negative COVID-19 Clin Com See Note Imaging Radiology Impressions: ITS Impressions Head CT 05/20/21 10:13 IMPRESSION: No acute intracranial pathology. Mild chronic volume loss with small vessel ischemic change. Medications Medications Current Medications Acetaminophen (Acetaminophen 325 Mg Tablet) 650 mg PO Q6H PRN PRN Reason: Headache/Pain Mild Scale (1-3) Al Hydroxide/Mg Hydroxide (Magnesium Hydrox/Alum Hydrox 30 Ml Oral.Susp) 30 ml PO Q6H PRN PRN Reason: Heartburn/Nausea Last Admin: 05/17/21 19:35 Dose: 30 ml Documented by: Clonazepam (Clonazepam 0.5 Mg Tablet) 0.25 mg PO BEDTIME [facility] Last Admin: 06/02/21 20:45 Dose: 0.25 mg Documented by: Hydroxyzine HCl (Hydroxyzine Hcl 25 Mg Tablet) 25 mg PO Q6H PRN PRN Reason: Anxiety Last Admin: 05/24/21 08:06 Dose: 25 mg Documented by: Magnesium Hydroxide (Milk Of Magnesia 30 Ml Oral.Susp) 30 ml PO DAILY PRN PRN Reason: Constipation Multivitamins/Vitamin C (Multivitamin Tablet) 1 tab PO DAILY [facility] Last Admin: 06/03/21 08:18 Dose: 1 tab Documented by: Patient Own Med (Terazosin 5) 1 each PO DAILY@1830 [facility] Last Admin: 06/02/21 18:45 Dose: 1 each Documented by: Nortriptyline HCl (Nortriptyline Hcl 25 Mg Capsule) 75 mg PO BEDTIME [facility] Last Admin: 06/02/21 20:46 Dose: 75 mg Documented by: Psyllium Hydrophilic Mucilloid (Psyllium Seed 3.4 Gm Powd.Pack) 3.4 gm PO DAILY [facility] Last Admin: 06/03/21 08:18 Dose: 3.4 gm Documented by: Quetiapine Fumarate (Quetiapine Fumarate 100 Mg Tablet) 100 mg PO BEDTIME [facility] Last Admin: 06/02/21 20:45 Dose: 100 mg Documented by: Senna (Senna [place] Extract Oral Syrup 15 Ml Syrup) 7.5 ml PO BEDTIME [facility] Last Admin: 06/02/21 20:47 Dose: 7.5 ml Documented by: Allergies Allergies Allergy/AdvReac Type Severity Reaction Status Date / Time No Known Allergies Allergy Verified 05/10/21 08:40 Assessment & Plan Assessment & Plan (1) MDD (major depressive disorder), recurrent severe, without psychosis: Status: Acute Code(s): F33.2 - Major depressive disorder, recurrent severe without psychotic features Assessment and Plan: The patient is an elderly male with a long history of anxiety and depression that worsened in the last months due to noncompliance to Lexapro. The patient stop Lexapro due to side effects. The patient has active suicidal ideation he needs inpatient level of care at this moment. Plan 1. Gather collateral information. 2. Continue Seroquel 100 mg p.o. q.h.s. to target insomnia and mood lability. 3. Increase Pamelor up to 75 mg p.o. q.h.s. to target depression and insomnia on 05/29 4. New Pamelor level for next Monday 5. [facility], family is looking for a suitable placement. 05/31: discontinue ambien and start klonopin 0.25 mg QHS for insomnia. Reviewed risks and benefits. 06/03: increase clonazepam to 0.5mg po qhs- may consider ativan low dose if problem is falling asleep. otherwise pt reports mood much improved. I spent minutes with the patient and/or on the patient floor today, greater than?50% of which was spent counseling/coordinating care. Reason for contiued inpatient stay Substantial Risk for: harm to self
[2021-06-03 11:35] LABS: COVID-19 Test Negative (Negative)
[2021-06-03] MEDS: Magnesium Hydrox/Alum Hydrox 30 ML ORAL.SUSP PO (15:55)
[2021-06-03 20:10] VITALS: BP 116/68; PULSE 116; RESP 19; TEMP 36.8; O2SAT 96
[2021-06-03] MEDS: clonazePAM 0.5 MG TABLET PO (20:34)
[2021-06-03] MEDS: QUEtiapine Fumarate 100 MG TABLET PO (20:34)
[2021-06-03] MEDS: Nortriptyline HCl 25 MG CAPSULE 75 MG PO (20:34)
[2021-06-04 08:00] VITALS: BP 130/78; PULSE 82; RESP 14; TEMP 36.6; O2SAT 97
[2021-06-04] MEDS: Multivitamin TABLET 1 TAB PO (09:28)
--- NOTE | 2021-06-04 11:15 | P.PNPSI_ITS ---
Subjective Subjective Date of Service: 06/04/21 Reason For Visit: depression,SI Subjective Notes: Conditional Voluntary Medical Problems Affecting Mental Status: No Medication Compliance: Yes Side effects from medications: No Review of Systems Patient was seen and discussed in rounds today for. He has been doing better and is brighter in his affect. He also states that he is feeling better and is doing better also with the new medication which is not of sedating. He is socializing more. Eating and sleeping adequately. No changes were made today. He denies any side effects Review of Systems Review of Systems Yes all other systems are reviewed and are negative Mental Status Exam Mental Status Exam Narrative: Patient was seen today. In today's visit he is alert, oriented and pleasant. Normal speech. Good eye contact. Appropriate affect. Generally looking brighter. No signs of psychosis. No SI. Cognitively at baseline with no gross deficits. Judgment is intact Diagnostics Vital Signs (24Hr): Vital Signs - 24 hr 06/03/21 20:10 06/04/21 08:00 Temperature 98.3 F 97.9 F Pulse Rate 116 H 82 Respiratory Rate 19 14 Blood Pressure 116/68 130/78 Pulse Oximetry 96 97 BMI result Body Mass Index 23.5 Labs Results: 05/13/21 07:03 05/13/21 07:03 Labs: Laboratory Results - last 48 hr 06/03/21 11:00 COVID-19 ([facility]) Negative COVID-19 Clin Com See Note Imaging Radiology Impressions: ITS Impressions Head CT 05/20/21 10:13 IMPRESSION: No acute intracranial pathology. Mild chronic volume loss with small vessel ischemic change. Medications Medications Current Medications Acetaminophen (Acetaminophen 325 Mg Tablet) 650 mg PO Q6H PRN PRN Reason: Headache/Pain Mild Scale (1-3) Al Hydroxide/Mg Hydroxide (Magnesium Hydrox/Alum Hydrox 30 Ml Oral.Susp) 30 ml PO Q6H PRN PRN Reason: Heartburn/Nausea Last Admin: 06/03/21 15:55 Dose: 30 ml Documented by: Clonazepam (Clonazepam 0.5 Mg Tablet) 0.5 mg PO BEDTIME [facility] Last Admin: 06/03/21 20:34 Dose: 0.5 mg Documented by: Hydroxyzine HCl (Hydroxyzine Hcl 25 Mg Tablet) 25 mg PO Q6H PRN PRN Reason: Anxiety Last Admin: 05/24/21 08:06 Dose: 25 mg Documented by: Magnesium Hydroxide (Milk Of Magnesia 30 Ml Oral.Susp) 30 ml PO DAILY PRN PRN Reason: Constipation Multivitamins/Vitamin C (Multivitamin Tablet) 1 tab PO DAILY [facility] Last Admin: 06/04/21 09:28 Dose: 1 tab Documented by: Patient Own Med (Terazosin 5) 1 each PO DAILY@1830 [facility] Last Admin: 06/03/21 18:35 Dose: 1 each Documented by: Nortriptyline HCl (Nortriptyline Hcl 25 Mg Capsule) 75 mg PO BEDTIME [facility] Last Admin: 06/03/21 20:34 Dose: 75 mg Documented by: Psyllium Hydrophilic Mucilloid (Psyllium Seed 3.4 Gm Powd.Pack) 3.4 gm PO DAILY [facility] Last Admin: 06/04/21 09:28 Dose: 3.4 gm Documented by: Quetiapine Fumarate (Quetiapine Fumarate 100 Mg Tablet) 100 mg PO BEDTIME [facility] Last Admin: 06/03/21 20:34 Dose: 100 mg Documented by: Senna (Senna [place] Extract Oral Syrup 15 Ml Syrup) 7.5 ml PO BEDTIME [facility] Last Admin: 06/03/21 20:35 Dose: 7.5 ml Documented by: Allergies Allergies Allergy/AdvReac Type Severity Reaction Status Date / Time No Known Allergies Allergy Verified 05/10/21 08:40 Assessment & Plan Assessment & Plan (1) MDD (major depressive disorder), recurrent severe, without psychosis: Status: Acute Code(s): F33.2 - Major depressive disorder, recurrent severe without psychotic features Assessment and Plan: The patient is an elderly male with a long history of anxiety and depression that worsened in the last months due to noncompliance to Lexapro. The patient stop Lexapro due to side effects. The patient has active suicidal ideation he needs inpatient level of care at this moment. Plan 1. Gather collateral information. 2. Continue Seroquel 100 mg p.o. q.h.s. to target insomnia and mood lability. 3. Increase Pamelor up to 75 mg p.o. q.h.s. to target depression and insomnia on 05/29 4. New Pamelor level for next Monday 5. [facility], family is looking for a suitable placement. 05/31: discontinue ambien and start klonopin 0.25 mg QHS for insomnia. Reviewed risks and benefits. 06/03: increase clonazepam to 0.5mg po qhs- may consider ativan low dose if problem is falling asleep. otherwise pt reports mood much improved. 06/04: Continue current regimen and plans I spent minutes with the patient and/or on the patient floor today, greater than?50% of which was spent counseling/coordinating care. Reason for contiued inpatient stay Substantial Risk for: other
[2021-06-04 20:19] VITALS: BP 136/81; PULSE 100; RESP 17; TEMP 36.8; O2SAT 96
[2021-06-04] MEDS: Nortriptyline HCl 25 MG CAPSULE 75 MG PO (20:42)
[2021-06-04] MEDS: QUEtiapine Fumarate 100 MG TABLET PO (20:42)
[2021-06-04] MEDS: clonazePAM 0.5 MG TABLET PO (20:43)
[2021-06-05] MEDS: Multivitamin TABLET 1 TAB PO (08:04)
[2021-06-05 08:26] VITALS: BP 138/84; PULSE 91; RESP 16; TEMP 36.7; O2SAT 95
--- NOTE | 2021-06-05 09:40 | P.PNPSI_ITS ---
Subjective Subjective Date of Service: 06/05/21 Reason For Visit: depression,SI Subjective Notes: Conditional Voluntary Interim History: Patient was seen in rounds today/records reviewed and discussed in rounds. He continues to be stable and is doing much better. No complaints of depression or anxiety. He is looking forward to going to an assisted living. Eating and sleeping adequately. No complaints or side effects except for slight blurred vision which may be related to the increase of nortriptyline. No changes were made today Medication Compliance: Yes Side effects from medications: Yes (Slight blurred vision) Review of Systems Acute medical concerns: No Review of Systems Review of Systems Yes all other systems are reviewed and are negative Mental Status Exam Mental Status Exam Narrative: Patient was seen today. In today's visit he is alert, oriented and pleasant. Normal speech. Good eye contact. Appropriate affect. Generally looking brighter. No signs of psychosis. No SI. Cognitively at baseline with no gross deficits. Judgment is intact Diagnostics Vital Signs (24Hr): Vital Signs - 24 hr 06/04/21 20:19 06/05/21 08:26 Temperature 98.3 F 98.0 F Pulse Rate 100 91 Respiratory Rate 17 16 Blood Pressure 136/81 138/84 Pulse Oximetry 96 95 BMI result Body Mass Index 23.5 Labs Results: 05/13/21 07:03 05/13/21 07:03 Labs: Laboratory Results - last 48 hr 06/03/21 11:00 COVID-19 ([facility]) Negative COVID-19 Clin Com See Note Imaging Radiology Impressions: ITS Impressions Head CT 05/20/21 10:13 IMPRESSION: No acute intracranial pathology. Mild chronic volume loss with small vessel ischemic change. Medications Medications Current Medications Acetaminophen (Acetaminophen 325 Mg Tablet) 650 mg PO Q6H PRN PRN Reason: Headache/Pain Mild Scale (1-3) Al Hydroxide/Mg Hydroxide (Magnesium Hydrox/Alum Hydrox 30 Ml Oral.Susp) 30 ml PO Q6H PRN PRN Reason: Heartburn/Nausea Last Admin: 06/03/21 15:55 Dose: 30 ml Documented by: Clonazepam (Clonazepam 0.5 Mg Tablet) 0.5 mg PO BEDTIME [facility] Last Admin: 06/04/21 20:43 Dose: 0.5 mg Documented by: Hydroxyzine HCl (Hydroxyzine Hcl 25 Mg Tablet) 25 mg PO Q6H PRN PRN Reason: Anxiety Last Admin: 05/24/21 08:06 Dose: 25 mg Documented by: Magnesium Hydroxide (Milk Of Magnesia 30 Ml Oral.Susp) 30 ml PO DAILY PRN PRN Reason: Constipation Multivitamins/Vitamin C (Multivitamin Tablet) 1 tab PO DAILY [facility] Last Admin: 06/05/21 08:04 Dose: 1 tab Documented by: Patient Own Med (Terazosin 5) 1 each PO DAILY@1830 [facility] Last Admin: 06/04/21 18:13 Dose: 1 each Documented by: Nortriptyline HCl (Nortriptyline Hcl 25 Mg Capsule) 75 mg PO BEDTIME [facility] Last Admin: 06/04/21 20:42 Dose: 75 mg Documented by: Psyllium Hydrophilic Mucilloid (Psyllium Seed 3.4 Gm Powd.Pack) 3.4 gm PO DAILY [facility] Last Admin: 06/05/21 08:04 Dose: 3.4 gm Documented by: Quetiapine Fumarate (Quetiapine Fumarate 100 Mg Tablet) 100 mg PO BEDTIME [facility] Last Admin: 06/04/21 20:42 Dose: 100 mg Documented by: Senna (Senna [place] Extract Oral Syrup 15 Ml Syrup) 7.5 ml PO BEDTIME [facility] Last Admin: 06/04/21 20:41 Dose: 7.5 ml Documented by: Allergies Allergies Allergy/AdvReac Type Severity Reaction Status Date / Time No Known Allergies Allergy Verified 05/10/21 08:40 Assessment & Plan Assessment & Plan (1) MDD (major depressive disorder), recurrent severe, without psychosis: Status: Acute Code(s): F33.2 - Major depressive disorder, recurrent severe without psychotic features Assessment and Plan: The patient is an elderly male with a long history of anxiety and depr ession that worsened in the last months due to noncompliance to Lexapro. The patient stop Lexapro due to side effects. The patient has active suicidal ideation he needs inpatient level of care at this moment. Plan 1. Gather collateral information. 2. Continue Seroquel 100 mg p.o. q.h.s. to target insomnia and mood lability. 3. Increase Pamelor up to 75 mg p.o. q.h.s. to target depression and insomnia on 05/29 4. New Pamelor level for next Monday 5. [facility], family is looking for a suitable placement. 12/20: discontinue ambien and start klonopin 0.25 mg QHS for insomnia. Reviewed risks and benefits. 06/03: increase clonazepam to 0.5mg po qhs- may consider ativan low dose if problem is falling asleep. otherwise pt reports mood much improved. 06/04: Continue current regimen and plans 06/05: Continue current regimen and plans with no changes today I spent minutes with the patient and/or on the patient floor today, greater than?50% of which was spent counseling/coordinating care. Reason for contiued inpatient stay Substantial Risk for: other
[2021-06-05 18:00] VITALS: BP 147/78; PULSE 108; RESP 18; TEMP 37.2; O2SAT 95
[2021-06-05] MEDS: Nortriptyline HCl 25 MG CAPSULE 75 MG PO (20:26)
[2021-06-05] MEDS: QUEtiapine Fumarate 100 MG TABLET PO (20:26)
[2021-06-05] MEDS: clonazePAM 0.5 MG TABLET PO (20:26)
[2021-06-06 06:16] LABS: Nortriptyline 101 mcg/L (50-150)
[2021-06-06 08:00] VITALS: BP 133/74; PULSE 108; TEMP 36.7; O2SAT 97
[2021-06-06] MEDS: Multivitamin TABLET 1 TAB PO (09:53)
--- NOTE | 2021-06-06 10:47 | P.PNPSI_ITS ---
Subjective Subjective Date of Service: 06/06/21 Reason For Visit: depression,SI Subjective Notes: Conditional Voluntary Medical Problems Affecting Mental Status: No Interim History: Patient seen and discussed in rounds today. Records were re viewed. He has been stable and continues with his gained benefits. He is looking forward to being discharged soon. He is compliant with treatment. He denies any side effects. Sleeping and eating adequately. No changes were made today Medication Compliance: Yes Side effects from medications: No Review of Systems Review of Systems Yes all other systems are reviewed and are negative Mental Status Exam Mental Status Exam Narrative: Patient was seen today. In today's visit he is alert, oriented and pleasant. Normal speech. Good eye contact. Appropriate affect. Generally looking brighter. No signs of psychosis. No SI. Cognitively at baseline with no gross deficits. Judgment is intact Diagnostics Vital Signs (24Hr): Vital Signs - 24 hr 06/05/21 18:00 Temperature 98.9 F Pulse Rate 108 H Respiratory Rate 18 Blood Pressure 147/78 H Pulse Oximetry 95 BMI result Body Mass Index 23.5 Labs Results: 05/13/21 07:03 05/13/21 07:03 Labs: Laboratory Results - last 48 hr 06/01/21 07:35 Nortriptyline 101 Imaging Radiology Impressions: ITS Impressions Head CT 05/20/21 10:13 IMPRESSION: No acute intracranial pathology. Mild chronic volume loss with small vessel ischemic change. Medications Medications Current Medications Acetaminophen (Acetaminophen 325 Mg Tablet) 650 mg PO Q6H PRN PRN Reason: Headache/Pain Mild Scale (1-3) Al Hydroxide/Mg Hydroxide (Magnesium Hydrox/Alum Hydrox 30 Ml Oral.Susp) 30 ml PO Q6H PRN PRN Reason: Heartburn/Nausea Last Admin: 06/03/21 15:55 Dose: 30 ml Documented by: Clonazepam (Clonazepam 0.5 Mg Tablet) 0.5 mg PO BEDTIME [facility] Last Admin: 06/05/21 20:26 Dose: 0.5 mg Documented by: Hydroxyzine HCl (Hydroxyzine Hcl 25 Mg Tablet) 25 mg PO Q6H PRN PRN Reason: Anxiety Last Admin: 05/24/21 08:06 Dose: 25 mg Documented by: Magnesium Hydroxide (Milk Of Magnesia 30 Ml Oral.Susp) 30 ml PO DAILY PRN PRN Reason: Constipation Multivitamins/Vitamin C (Multivitamin Tablet) 1 tab PO DAILY [facility] Last Admin: 06/06/21 09:53 Dose: 1 tab Documented by: Patient Own Med (Terazosin 5) 1 each PO DAILY@1830 [facility] Last Admin: 06/05/21 18:10 Dose: 1 each Documented by: Nortriptyline HCl (Nortriptyline Hcl 25 Mg Capsule) 75 mg PO BEDTIME [facility] Last Admin: 06/05/21 20:26 Dose: 75 mg Documented by: Psyllium Hydrophilic Mucilloid (Psyllium Seed 3.4 Gm Powd.Pack) 3.4 gm PO DAILY [facility] Last Admin: 06/06/21 09:53 Dose: 3.4 gm Documented by: Quetiapine Fumarate (Quetiapine Fumarate 100 Mg Tablet) 100 mg PO BEDTIME [facility] Last Admin: 06/05/21 20:26 Dose: 100 mg Documented by: Senna (Senna [place] Extract Oral Syrup 15 Ml Syrup) 7.5 ml PO BEDTIME [facility] Last Admin: 06/05/21 20:26 Dose: 7.5 ml Documented by: Allergies Allergies Allergy/AdvReac Type Severity Reaction Status Date / Time No Known Allergies Allergy Verified 05/10/21 08:40 Assessment & Plan Assessment & Plan (1) MDD (major depressive disorder), recurrent severe, without psychosis: Status: Acute Code(s): F33.2 - Major depressive disorder, recurrent severe without psychotic features Assessment and Plan: The patient is an elderly male with a long history of anxiety and depression that worsened in the last months due to noncompliance to Lexapro. The patient stop Lexapro due to side effects. The patient has active suicidal ideation he needs inpatient level of care at this moment. Plan 1. Gather collateral information. 2. Continue Seroquel 100 mg p.o. q.h.s. to target insomnia and mood lability. 3. Increase Pamelor up to 75 mg p.o. q.h.s. to target depression and insomnia on 05/29 4. New Pamelor level for next Monday 5. We will discharge to an [facility], family is looking for a suitable placement. 05/31: discontinue ambien and start klonopin 0.25 mg QHS for insomnia. Reviewed risks and benefits. 06/03: increase clonazepam to 0.5mg po qhs- may consider ativan low dose if problem is falling asleep. otherwise pt reports mood much improved. 06/04: Continue current regimen and plans 06/05: Continue current regimen and plans with no changes today 06/06: Continue current plans. No changes implemented today I spent minutes with the patient and/or on the patient floor today, greater than?50% of which was spent counseling/coordinating care. Reason for contiued inpatient stay Substantial Risk for: other
[2021-06-06 18:00] VITALS: BP 143/90; PULSE 115; RESP 18; TEMP 37.2; O2SAT 95
[2021-06-06] MEDS: Nortriptyline HCl 25 MG CAPSULE 75 MG PO (20:41)
[2021-06-06] MEDS: QUEtiapine Fumarate 100 MG TABLET PO (20:41)
[2021-06-06] MEDS: clonazePAM 0.5 MG TABLET PO (20:41)
[2021-06-06] MEDS: traZODone HCL 50 MG TABLET PO (23:02)
[2021-06-07 08:00] VITALS: BP 156/93; BP 162/95; PULSE 103; PULSE 96; RESP 16; RESP 18; TEMP 36.2; TEMP 36.7; O2SAT 98
[2021-06-07] MEDS: Multivitamin TABLET 1 TAB PO (08:18)
[2021-06-07 12:05] LABS: COVID-19 Test Negative (Negative); IDNOW Serial# 55D5AD1C
--- NOTE | 2021-06-07 15:58 | P.PNPSI_ITS ---
Subjective Subjective Date of Service: 06/07/21 Reason For Visit: depression,SI Subjective Notes: Conditional Voluntary Interim History: The nursing staff reported the patient had a very poor night, he woke up and he could not sleep well. On interview, the patient reports that his mood is dysphoric but he is able to contract for safety. He also complain of edema in his legs. His Pamelor level is 100 mg, so far no side effects Mental Status Exam Mental Status Exam Patient Appearance: Well Grooomed Patient Orientation: Person Level of Consciousness: Awake Patient Behavior: Cooperative Mood Description: Depressed Affect Description: Constricted Patient Cognition Impaired: No Ability to Follow Directions: Good Speech Pattern: Clear Memory Description: Intact Hallucinations: None Thought Process: Linear Thought Content: positive for Circumstantial Judgement: Fair Diagnostics Vital Signs (24Hr): Vital Signs - 24 hr 06/06/21 18:00 06/07/21 08:00 Temperature 98.9 F 97.2 F Pulse Rate 115 H 96 Respiratory Rate 18 16 Blood Pressure 143/90 H 162/95 H Pulse Oximetry 95 98 BMI result Body Mass Index 23.5 Labs Results: 05/13/21 07:03 05/13/21 07:03 Labs: Laboratory Results - last 48 hr 06/01/21 06/07/21 07:35 10:38 Nortriptyline 101 COVID-19 ([facility]) Negative COVID-19 Clin Com See Note Imaging Radiology Impressions: ITS Impressions Head CT 05/20/21 10:13 IMPRESSION: No acute intracranial pathology. Mild chronic volume loss with small vessel ischemic change. Medications Medications Current Medications Acetaminophen (Acetaminophen 325 Mg Tablet) 650 mg PO Q6H PRN PRN Reason: Headache/Pain Mild Scale (1-3) Al Hydroxide/Mg Hydroxide (Magnesium Hydrox/Alum Hydrox 30 Ml Oral.Susp) 30 ml PO Q6H PRN PRN Reason: Heartburn/Nausea Last Admin: 06/03/21 15:55 Dose: 30 ml Documented by: Clonazepam (Clonazepam 0.5 Mg Tablet) 0.5 mg PO BEDTIME [facility] Last Admin: 06/06/21 20:41 Dose: 0.5 mg Documented by: Hydroxyzine HCl (Hydroxyzine Hcl 25 Mg Tablet) 25 mg PO Q6H PRN PRN Reason: Anxiety Last Admin: 05/24/21 08:06 Dose: 25 mg Documented by: Magnesium Hydroxide (Milk Of Magnesia 30 Ml Oral.Susp) 30 ml PO DAILY PRN PRN Reason: Constipation Multivitamins/Vitamin C (Multivitamin Tablet) 1 tab PO DAILY [facility] Last Admin: 06/07/21 08:18 Dose: 1 tab Documented by: Patient Own Med (Terazosin 5) 1 each PO DAILY@1830 [facility] Last Admin: 06/06/21 17:49 Dose: 1 each Documented by: Nortriptyline HCl (Nortriptyline Hcl 25 Mg Capsule) 75 mg PO BEDTIME [facility] Last Admin: 06/06/21 20:41 Dose: 75 mg Documented by: Psyllium Hydrophilic Mucilloid (Psyllium Seed 3.4 Gm Powd.Pack) 3.4 gm PO DAILY [facility] Last Admin: 06/07/21 08:18 Dose: 3.4 gm Documented by: Quetiapine Fumarate (Quetiapine Fumarate 100 Mg Tablet) 100 mg PO BEDTIME [facility] Last Admin: 06/06/21 20:41 Dose: 100 mg Documented by: Senna (Senna [place] Extract Oral Syrup 15 Ml Syrup) 7.5 ml PO BEDTIME [facility] Last Admin: 06/06/21 20:41 Dose: 7.5 ml Documented by: Trazodone HCl (Trazodone Hcl 50 Mg Tablet) 50 mg PO BEDTIME PRN PRN Reason: Insomnia Last Admin: 06/06/21 23:02 Dose: 50 mg Documented by: Allergies Allergies Allergy/AdvReac Type Severity Reaction Status Date / Time No Known Allergies Allergy Verified 05/10/21 08:40 Assessment & Plan Assessment & Plan (1) MDD (major depressive disorder), recurrent severe, without psychosis: Status: Acute Code(s): F33.2 - Major depressive disorder, recurrent severe without psychotic features Assessment and Plan: The patient is an elderly male with a long history of anxiety and depression that worsened in the last months due to noncompliance to Lexapro. The patient stop Lexapro due to side effects. The patient has active suicidal ideation he needs inpatient level of care at this moment. Plan 1. Gather collateral information. 2. Continue Seroquel 100 mg p.o. q.h.s. to target insomnia and mood lability. 3. Increase Pamelor up to 75 mg p.o. q.h.s. to target depression and insomnia on 05/29 4. New Pamelor level for next Monday, his level is 100 mcg/dL 5. We will discharge to an [facility], family is looking for a suitable placement. At this moment, we are waiting for placement. 6. COVID negative at this moment I spent minutes with the patient and/or on the patient floor today, greater than?50% of which was spent counseling/coordinating care. Reason for contiued inpatient stay Substantial Risk for: harm to self, inability to function, rapid decompensation and med/psych decompensation
[2021-06-07] MEDS: Nortriptyline HCl 25 MG CAPSULE 75 MG PO (21:06)
[2021-06-07] MEDS: QUEtiapine Fumarate 100 MG TABLET PO (21:07)
[2021-06-07] MEDS: clonazePAM 1 MG TABLET PO (22:43)
[2021-06-08 06:00] VITALS: BP 129/72; PULSE 85; RESP 15; TEMP 36.8; O2SAT 96
[2021-06-08] MEDS: Multivitamin TABLET 1 TAB PO (08:10)
[2021-06-08 08:16] LABS: Anion Gap 7 (12-20); Blood Urea Nitrogen 13 mg/dL (9-16); Calcium 9.2 mg/dL (8.4-10.2); Carbon Dioxide 29 mmol/L (22-29); Chloride 106 mmol/L (96-108); Creatinine Clr Calc Pharmacy 46.2; Estimated Glomerular Filt Rate > 60; Glucose Random 81 mg/dL (60-115); Potassium 4.1 mmol/L (3.3-5.1); Sodium 138 mmol/L (135-145)
--- NOTE | 2021-06-08 14:25 | HO.PSYCHPN ---
Subjective Subjective Date of Service: 06/08/21 Reason For Visit: depression,SI Subjective Notes: Conditional Voluntary Interim History: The nursing staff reported the patient slept well with increase of Klonopin. On interview, the patient reported over-sedation with Klonopin and he was to go down to Klonopin 0.5 p.o. q.h.s.. So far, the patient is able to deal with the restrictions of COVID-19 Mental Status Exam Mental Status Exam Patient Appearance: Well Grooomed Patient Orientation: Person Level of Consciousness: Appropriate Patient Behavior: Cooperative Mood Description: Depressed Affect Description: Constricted Patient Cognition Impaired: No Ability to Follow Directions: Good Speech Pattern: Clear Memory Description: Intact Hallucinations: None Delusions: Not Present Thought Process: Intact Thought Content: positive for Circumstantial Judgement: Fair Diagnostics Vital Signs (24Hr): Vital Signs - 24 hr 06/08/21 06:00 Temperature 98.2 F Pulse Rate 85 Respiratory Rate 15 Blood Pressure 129/72 Pulse Oximetry 96 BMI result Body Mass Index 23.5 Labs Results: 05/13/21 07:03 06/08/21 06:57 Labs: Laboratory Results - last 48 hr 06/07/21 06/08/21 10:38 06:57 Sodium 138 Potassium 4.1 Chloride 106 Carbon Dioxide 29 Anion Gap 7 L BUN 13 Creatinine 1.09 Estim Creat Clear Calc 46.2 Estimated GFR > 60 Random Glucose 81 Calcium 9.2 COVID-19 ([facility]) Negative COVID-19 Clin Com See Note Imaging Radiology Impressions: ITS Impressions Head CT 05/20/21 10:13 IMPRESSION: No acute intracranial pathology. Mild chronic volume loss with small vessel ischemic change. Medications Medications Current Medications Acetaminophen (Acetaminophen 325 Mg Tablet) 650 mg PO Q6H PRN PRN Reason: Headache/Pain Mild Scale (1-3) Al Hydroxide/Mg Hydroxide (Magnesium Hydrox/Alum Hydrox 30 Ml Oral.Susp) 30 ml PO Q6H PRN PRN Reason: Heartburn/Nausea Last Admin: 06/03/21 15:55 Dose: 30 ml Documented by: Clonazepam (Clonazepam 0.5 Mg Tablet) 0.5 mg PO BEDTIME [facility] Hydroxyzine HCl (Hydroxyzine Hcl 25 Mg Tablet) 25 mg PO Q6H PRN PRN Reason: Anxiety Last Admin: 05/24/21 08:06 Dose: 25 mg Documented by: Magnesium Hydroxide (Milk Of Magnesia 30 Ml Oral.Susp) 30 ml PO DAILY PRN PRN Reason: Constipation Multivitamins/Vitamin C (Multivitamin Tablet) 1 tab PO DAILY [facility] Last Admin: 06/08/21 08:10 Dose: 1 tab Documented by: Patient Own Med (Terazosin 5) 1 each PO DAILY@1830 [facility] Last Admin: 06/07/21 19:02 Dose: 1 each Documented by: Nortriptyline HCl (Nortriptyline Hcl 25 Mg Capsule) 75 mg PO BEDTIME [facility] Last Admin: 06/07/21 21:06 Dose: 75 mg Documented by: Psyllium Hydrophilic Mucilloid (Psyllium Seed 3.4 Gm Powd.Pack) 3.4 gm PO DAILY [facility] Last Admin: 06/08/21 08:10 Dose: 3.4 gm Documented by: Quetiapine Fumarate (Quetiapine Fumarate 100 Mg Tablet) 100 mg PO BEDTIME [facility] Last Admin: 06/07/21 21:07 Dose: 100 mg Documented by: Senna (Senna [place] Extract Oral Syrup 15 Ml Syrup) 7.5 ml PO BEDTIME [facility] Last Admin: 06/07/21 21:06 Dose: 7.5 ml Documented by: Trazodone HCl (Trazodone Hcl 50 Mg Tablet) 50 mg PO BEDTIME PRN PRN Reason: Insomnia Last Admin: 06/06/21 23:02 Dose: 50 mg Documented by: Allergies Allergies Allergy/AdvReac Type Severity Reaction Status Date / Time No Known Allergies Allergy Verified 05/10/21 08:40 Assessment & Plan Assessment & Plan (1) MDD (major depressive disorder), recurrent severe, without psychosis: Status: Acute Code(s): F33.2 - Major depressive disorder, recurrent severe without psychotic features Assessment and Plan: The patient is an elderly male with a long history of anxiety and depression that worsened in the last months due to noncompliance to Lexapro. The patient stop Lexapro due to side effects. The patient has active suicidal ideation he needs inpatient level of care at this moment. Plan 1. Gather collateral information. 2. Continue Seroquel 100 mg p.o. q.h.s. to target insomnia and mood lability. 3. Increase Pamelor up to 75 mg p.o. q.h.s. to target depression and insomnia on 05/29 4. New Pamelor level for next Monday, his level is 100 mcg/dL 5. We will discharge to an [facility], family is looking for a suitable placement. At this moment, we are waiting for placement. 6. COVID negative at this moment I spent minutes with the patient and/or on the patient floor today, greater than?50% of which was spent counseling/coordinating care. Reason for contiued inpatient stay Substantial Risk for: harm to self, inability to function, rapid decompensation and med/psych decompensation
[2021-06-08 18:00] VITALS: BP 129/84; PULSE 100; RESP 16; TEMP 36.9; O2SAT 97
[2021-06-08] MEDS: clonazePAM 0.5 MG TABLET PO (20:14)
[2021-06-08] MEDS: Nortriptyline HCl 25 MG CAPSULE 75 MG PO (20:14)
[2021-06-08] MEDS: QUEtiapine Fumarate 100 MG TABLET PO (20:15)
[2021-06-09 06:00] VITALS: BP 127/83; PULSE 109; RESP 16; TEMP 36.6; O2SAT 98
[2021-06-09] MEDS: Multivitamin TABLET 1 TAB PO (09:15)
[2021-06-09 12:40] LABS: COVID-19 Test Negative (Negative); IDNOW Serial# 9DD0AD1C
--- NOTE | 2021-06-09 12:58 | P.PNPSI_ITS ---
Subjective Subjective Date of Service: 06/09/21 Reason For Visit: depression,SI Subjective Notes: Conditional Voluntary Interim History: The patient reported that he has blurred vision and slight oversedation. On physical exam, thre is mild tremors. On inteview, he reported less dysphoira, I explained that the blurry vision is due to Pamelor. Mental Status Exam Mental Status Exam Patient Appearance: Well Grooomed Patient Orientation: Person Level of Consciousness: Awake Patient Behavior: Appropriate and Cooperative Mood Description: Constricted Affect Description: Calm Patient Cognition Impaired: No Ability to Follow Directions: Good Speech Pattern: Clear Hallucinations: None Delusions: Not Present Thought Process: Linear Thought Content: positive for Circumstantial Judgement: Fair Diagnostics Vital Signs (24Hr): Vital Signs - 24 hr 06/08/21 18:00 06/09/21 06:00 Temperature 98.4 F 97.8 F Pulse Rate 100 109 H Respiratory Rate 16 16 Blood Pressure 129/84 127/83 Pulse Oximetry 97 98 BMI result Body Mass Index 23.5 Labs Results: 05/13/21 07:03 06/08/21 06:57 Labs: Laboratory Results - last 48 hr 06/08/21 06/09/21 06:57 Unknown Sodium 138 Potassium 4.1 Chloride 106 Carbon Dioxide 29 Anion Gap 7 L BUN 13 Creatinine 1.09 Estim Creat Clear Calc 46.2 Estimated GFR > 60 Random Glucose 81 Calcium 9.2 COVID-19 ([facility]) Negative COVID-19 Clin Com See Note Imaging Radiology Impressions: ITS Impressions Head CT 05/20/21 10:13 IMPRESSION: No acute intracranial pathology. Mild chronic volume loss with small vessel ischemic change. Medications Medications Current Medications Acetaminophen (Acetaminophen 325 Mg Tablet) 650 mg PO Q6H PRN PRN Reason: Headache/Pain Mild Scale (1-3) Al Hydroxide/Mg Hydroxide (Magnesium Hydrox/Alum Hydrox 30 Ml Oral.Susp) 30 ml PO Q6H PRN PRN Reason: Heartburn/Nausea Last Admin: 06/03/21 15:55 Dose: 30 ml Documented by: Clonazepam (Clonazepam 0.5 Mg Tablet) 0.5 mg PO BEDTIME [facility] Last Admin: 06/08/21 20:14 Dose: 0.5 mg Documented by: Hydroxyzine HCl (Hydroxyzine Hcl 25 Mg Tablet) 25 mg PO Q6H PRN PRN Reason: Anxiety Last Admin: 05/24/21 08:06 Dose: 25 mg Documented by: Magnesium Hydroxide (Milk Of Magnesia 30 Ml Oral.Susp) 30 ml PO DAILY PRN PRN Reason: Constipation Multivitamins/Vitamin C (Multivitamin Tablet) 1 tab PO DAILY [facility] Last Admin: 06/09/21 09:15 Dose: 1 tab Documented by: Patient Own Med (Terazosin 5) 1 each PO DAILY@1830 [facility] Last Admin: 06/08/21 19:24 Dose: 1 each Documented by: Nortriptyline HCl (Nortriptyline Hcl 10 Mg Capsule) 60 mg PO BEDTIME [facility] Psyllium Hydrophilic Mucilloid (Psyllium Seed 3.4 Gm Powd.Pack) 3.4 gm PO DAILY [facility] Last Admin: 06/09/21 09:15 Dose: 3.4 gm Documented by: Quetiapine Fumarate (Quetiapine Fumarate 100 Mg Tablet) 100 mg PO BEDTIME [facility] Last Admin: 06/08/21 20:15 Dose: 100 mg Documented by: Senna (Senna [place] Extract Oral Syrup 15 Ml Syrup) 7.5 ml PO BEDTIME [facility] Last Admin: 06/08/21 20:16 Dose: 7.5 ml Documented by: Trazodone HCl (Trazodone Hcl 50 Mg Tablet) 50 mg PO BEDTIME PRN PRN Reason: Insomnia Last Admin: 06/06/21 23:02 Dose: 50 mg Documented by: Allergies Allergies Allergy/AdvReac Type Severity Reaction Status Date / Time No Known Allergies Allergy Verified 05/10/21 08:40 Assessment & Plan Assessment & Plan (1) MDD (major depressive disorder), recurrent severe, without psychosis: Status: Acute Code(s): F33.2 - Major depressive disorder, recurrent severe without psychotic features Assessment and Plan: The patient is an elderly male with a long history of anxiety and depression that worsened in the last months due to noncompliance to Lexapro. The patient stop Lexapro due to side effects. The patient has active suicidal ideation he needs inpatient level of care at this moment. Plan 1. Gather collateral information. 2. Continue Seroquel 100 mg p.o. q.h.s. to target insomnia and mood lability. 3. Lower Pamelor up to 60 mg p.o. q.h.s. to target depression and insomnia on 06/09 4. New Pamelor level for next Monday, his level is 100 mcg/dL 5. We will discharge to an [facility], family is looking for a suitable placement. At this moment, we are waiting for placement. 6. COVID negative at this moment I spent minutes with the patient and/or on the patient floor today, greater than?50% of which was spent counseling/coordinating care. Reason for contiued inpatient stay Substantial Risk for: inability to function, rapid decompensation and med/psych decompensation
--- NOTE | 2021-06-09 16:17 | PC.NURSE ---
Patient c/o blurry vision, dizzyness and tremors to hands bilaterally. MD notified. Symptoms due to Nortriptyline increase to 75 mg. HS on 05/27/21. Medication decreased today to 60 mg HS. Will continue to monitor.
[2021-06-09 18:00] VITALS: BP 152/91; PULSE 104; RESP 18; TEMP 37.1; O2SAT 97
[2021-06-09] MEDS: QUEtiapine Fumarate 100 MG TABLET PO (21:00)
[2021-06-09] MEDS: Nortriptyline HCl 10 MG CAPSULE 60 MG PO (21:00)
[2021-06-09] MEDS: clonazePAM 0.5 MG TABLET PO (21:00)
[2021-06-10 06:00] VITALS: BP 111/68; PULSE 88; RESP 16; TEMP 36.5; O2SAT 97
[2021-06-10] MEDS: Multivitamin TABLET 1 TAB PO (08:24)
[2021-06-10 08:42] LABS: COVID-19 Test Negative (Negative); IDNOW Serial# 08D9AD1C
--- NOTE | 2021-06-10 13:42 | P.PNPSI_ITS ---
Subjective Subjective Date of Service: 06/10/21 Reason For Visit: depression,SI Subjective Notes: Conditional Voluntary Interim History: The nursing staff reported the patient slept well last night. On interview, the patient reports still blurry vision, he is fully aware that we lowered his Pamelor from 75-60 mg at night to lower his side effects. The social media assistant reported that on Monday he will be screened from and [facility] Mental Status Exam Mental Status Exam Patient Appearance: Well Grooomed Patient Orientation: Person Level of Consciousness: Awake Patient Behavior: Appropriate Mood Description: Calm Affect Description: Withdrawn and Constricted Patient Cognition Impaired: No Ability to Follow Directions: Good Speech Pattern: Clear Hallucinations: None Delusions: Not Present Thought Process: Linear Thought Content: positive for Poverty of Content Judgement: Fair Diagnostics Vital Signs (24Hr): Vital Signs - 24 hr 06/09/21 18:00 06/10/21 06:00 Temperature 98.7 F 97.7 F Pulse Rate 104 H 88 Respiratory Rate 18 16 Blood Pressure 152/91 H 111/68 Pulse Oximetry 97 97 BMI result Body Mass Index 23.5 Labs Results: 05/13/21 07:03 06/08/21 06:57 Labs: Laboratory Results - last 48 hr 06/09/21 06/10/21 Unknown 07:40 COVID-19 ([facility]) Negative Negative COVID-19 Clin Com See Note See Note Imaging Radiology Impressions: ITS Impressions Head CT 05/20/21 10:13 IMPRESSION: No acute intracranial pathology. Mild chronic volume loss with small vessel ischemic change. Medications Medications Current Medications Acetaminophen (Acetaminophen 325 Mg Tablet) 650 mg PO Q6H PRN PRN Reason: Headache/Pain Mild Scale (1-3) Al Hydroxide/Mg Hydroxide (Magnesium Hydrox/Alum Hydrox 30 Ml Oral.Susp) 30 ml PO Q6H PRN PRN Reason: Heartburn/Nausea Last Admin: 06/03/21 15:55 Dose: 30 ml Documented by: Clonazepam (Clonazepam 0.5 Mg Tablet) 0.5 mg PO BEDTIME [facility] Last Admin: 06/09/21 21:00 Dose: 0.5 mg Documented by: Hydroxyzine HCl (Hydroxyzine Hcl 25 Mg Tablet) 25 mg PO Q6H PRN PRN Reason: Anxiety Last Admin: 05/24/21 08:06 Dose: 25 mg Documented by: Magnesium Hydroxide (Milk Of Magnesia 30 Ml Oral.Susp) 30 ml PO DAILY PRN PRN Reason: Constipation Multivitamins/Vitamin C (Multivitamin Tablet) 1 tab PO DAILY [facility] Last Admin: 06/10/21 08:24 Dose: 1 tab Documented by: Patient Own Med (Terazosin 5) 1 each PO DAILY@1830 [facility] Last Admin: 06/09/21 18:42 Dose: 1 each Documented by: Nortriptyline HCl (Nortriptyline Hcl 10 Mg Capsule) 60 mg PO BEDTIME [facility] Last Admin: 06/09/21 21:00 Dose: 60 mg Documented by: Psyllium Hydrophilic Mucilloid (Psyllium Seed 3.4 Gm Powd.Pack) 3.4 gm PO DAILY [facility] Last Admin: 06/10/21 08:24 Dose: 3.4 gm Documented by: Quetiapine Fumarate (Quetiapine Fumarate 100 Mg Tablet) 100 mg PO BEDTIME [facility] Last Admin: 06/09/21 21:00 Dose: 100 mg Documented by: Senna (Senna [place] Extract Oral Syrup 15 Ml Syrup) 7.5 ml PO BEDTIME [facility] Last Admin: 06/09/21 21:00 Dose: 7.5 ml Documented by: Trazodone HCl (Trazodone Hcl 50 Mg Tablet) 50 mg PO BEDTIME PRN PRN Reason: Insomnia Last Admin: 06/06/21 23:02 Dose: 50 mg Documented by: Allergies Allergies Allergy/AdvReac Type Severity Reaction Status Date / Time No Known Allergies Allergy Verified 05/10/21 08:40 Assessment & Plan Assessment & Plan (1) MDD (major depressive disorder), recurrent severe, without psychosis: Status: Acute Code(s): F33.2 - Major depressive disorder, recurrent severe without psychotic features Assessment and Plan: The patient is an elderly male with a long history of anxiety and depression that worsened in the last months due to noncompliance to Lexapro. The patient stop Lexapro due to side effects. The patient has active suicidal ideation he needs inpatient level of care at this moment. Plan 1. Gather collateral information. 2. Continue Seroquel 100 mg p.o. q.h.s. to target insomnia and mood lability. 3. Lower Pamelor up to 60 mg p.o. q.h.s. to target depression and insomnia on 06/09 4. New Pamelor level for next Monday, his level is 100 mcg/dL 5. We will discharge to an [facility], family is looking for a suitable placement. At this moment, we are waiting for placement. Next Monday he will be checked by this facility. 6. COVID negative at this moment I spent minutes with the patient and/or on the patient floor today, greater than?50% of which was spent counseling/coordinating care. Reason for contiued inpatient stay Substantial Risk for: inability to function, rapid decompensation and med/psych decompensation
[2021-06-10 18:00] VITALS: BP 155/95; PULSE 108; RESP 18; TEMP 36.7; O2SAT 97
[2021-06-10] MEDS: clonazePAM 0.5 MG TABLET PO (20:30)
[2021-06-10] MEDS: QUEtiapine Fumarate 100 MG TABLET PO (20:31)
[2021-06-10] MEDS: Nortriptyline HCl 10 MG CAPSULE 60 MG PO (20:31)
[2021-06-10] MEDS: traZODone HCL 50 MG TABLET PO (22:13)
[2021-06-10] MEDS: hydrOXYzine HCL 25 MG TABLET PO (22:13)
[2021-06-11 06:00] VITALS: BP 150/90; PULSE 98; RESP 16; TEMP 36.9; O2SAT 98
[2021-06-11] MEDS: Multivitamin TABLET 1 TAB PO (08:33)
--- NOTE | 2021-06-11 10:38 | P.PNPSI_ITS ---
Subjective Subjective Date of Service: 06/11/21 Reason For Visit: depression,SI Subjective Notes: Conditional Voluntary Interim History: The nursing staff reported the patient slept poorly last night. He still complains of blurry vision. On interview, the patient reports blurry vision and he feels a little frustrated 40 side effect. He is fully aware way that we lowered nortriptyline up to 60 mg a day. Mental Status Exam Mental Status Exam Patient Appearance: Well Grooomed Patient Orientation: Person Level of Consciousness: Awake Patient Behavior: Cooperative Mood Description: Depressed Affect Description: Constricted Patient Cognition Impaired: No Ability to Follow Directions: Good Speech Pattern: Clear Hallucinations: None Delusions: Not Present Thought Process: Intact Thought Content: positive for Circumstantial Judgement: Fair Diagnostics Vital Signs (24Hr): Vital Signs - 24 hr 06/10/21 18:00 06/11/21 06:00 Temperature 98.0 F 98.4 F Pulse Rate 108 H 98 Respiratory Rate 18 16 Blood Pressure 155/95 H 150/90 H Pulse Oximetry 97 98 BMI result Body Mass Index 23.5 Labs Results: 05/13/21 07:03 06/08/21 06:57 Labs: Laboratory Results - last 48 hr 06/09/21 06/10/21 Unknown 07:40 COVID-19 ([facility]) Negative Negative COVID-19 Clin Com See Note See Note Imaging Radiology Impressions: ITS Impressions Head CT 05/20/21 10:13 IMPRESSION: No acute intracranial pathology. Mild chronic volume loss with small vessel ischemic change. Medications Medications Current Medications Acetaminophen (Acetaminophen 325 Mg Tablet) 650 mg PO Q6H PRN PRN Reason: Headache/Pain Mild Scale (1-3) Al Hydroxide/Mg Hydroxide (Magnesium Hydrox/Alum Hydrox 30 Ml Oral.Susp) 30 ml PO Q6H PRN PRN Reason: Heartburn/Nausea Last Admin: 06/03/21 15:55 Dose: 30 ml Documented by: Clonazepam (Clonazepam 0.5 Mg Tablet) 0.5 mg PO BEDTIME [facility] Last Admin: 06/10/21 20:30 Dose: 0.5 mg Documented by: Hydroxyzine HCl (Hydroxyzine Hcl 25 Mg Tablet) 25 mg PO Q6H PRN PRN Reason: Anxiety Last Admin: 06/10/21 22:13 Dose: 25 mg Documented by: Magnesium Hydroxide (Milk Of Magnesia 30 Ml Oral.Susp) 30 ml PO DAILY PRN PRN Reason: Constipation Multivitamins/Vitamin C (Multivitamin Tablet) 1 tab PO DAILY [facility] Last Admin: 06/11/21 08:33 Dose: 1 tab Documented by: Patient Own Med (Terazosin 5) 1 each PO DAILY@1830 [facility] Last Admin: 06/10/21 18:41 Dose: 1 each Documented by: Nortriptyline HCl (Nortriptyline Hcl 10 Mg Capsule) 60 mg PO BEDTIME [facility] Last Admin: 06/10/21 20:31 Dose: 60 mg Documented by: Psyllium Hydrophilic Mucilloid (Psyllium Seed 3.4 Gm Powd.Pack) 3.4 gm PO DAILY [facility] Last Admin: 06/11/21 08:33 Dose: 3.4 gm Documented by: Quetiapine Fumarate (Quetiapine Fumarate 100 Mg Tablet) 100 mg PO BEDTIME [facility] Last Admin: 06/10/21 20:31 Dose: 100 mg Documented by: Senna (Senna [place] Extract Oral Syrup 15 Ml Syrup) 7.5 ml PO BEDTIME [facility] Last Admin: 06/10/21 20:31 Dose: 7.5 ml Documented by: Trazodone HCl (Trazodone Hcl 50 Mg Tablet) 50 mg PO BEDTIME PRN PRN Reason: Insomnia Last Admin: 06/10/21 22:13 Dose: 50 mg Documented by: Allergies Allergies Allergy/AdvReac Type Severity Reaction Status Date / Time No Known Allergies Allergy Verified 05/10/21 08:40 Assessment & Plan Assessment & Plan (1) MDD (major depressive disorder), recurrent severe, without psychosis: Status: Acute Code(s): F33.2 - Major depressive disorder, recurrent severe without psychotic features Assessment and Plan: The patient is an elderly male with a long history of anxiety and depression that worsened in the last months due to noncompliance to Lexapro. The patient stop Lexapro due to side effects. The patient has active suicidal ideation he needs inpatient level of care at this moment. Plan 1. Gather collateral information. 2. Continue Seroquel 100 mg p.o. q.h.s. to target insomnia and mood lability. 3. Lower Pamelor up to 60 mg p.o. q.h.s. to target depression and insomnia on 06/09 4. New Pamelor level for next Monday, his level is 100 mcg/dL 5. We will discharge to an [facility], family is looking for a suitable placement. At this moment, we are waiting for placement. Next Monday he will be checked by this facility. 6. COVID negative at this moment I spent minutes with the patient and/or on the patient floor today, grea ter than?50% of which was spent counseling/coordinating care. Reason for contiued inpatient stay Substantial Risk for: inability to function, rapid decompensation and med/psych decompensation
[2021-06-11] MEDS: hydrOXYzine HCL 25 MG TABLET PO (15:51)
[2021-06-11 18:00] VITALS: BP 178/111; PULSE 111; RESP 20; TEMP 37.5; O2SAT 98
[2021-06-11] MEDS: clonazePAM 0.5 MG TABLET PO (19:48)
[2021-06-11] MEDS: QUEtiapine Fumarate 100 MG TABLET PO (19:48)
[2021-06-11] MEDS: traZODone HCL 50 MG TABLET PO (19:48)
[2021-06-11] MEDS: Nortriptyline HCl 10 MG CAPSULE 60 MG PO (19:49)
[2021-06-12 08:00] VITALS: BP 136/88; PULSE 109; RESP 14; TEMP 36.6; O2SAT 96
[2021-06-12] MEDS: Multivitamin TABLET 1 TAB PO (08:31)
[2021-06-12] MEDS: hydrOXYzine HCL 25 MG TABLET PO (11:32)
[2021-06-12 18:00] VITALS: BP 123/76; PULSE 109; RESP 18; TEMP 36.6; O2SAT 98
[2021-06-12] MEDS: Docusate Sodium 100 MG CAPSULE PO (20:36)
[2021-06-12] MEDS: Nortriptyline HCl 10 MG CAPSULE 60 MG PO (20:36)
[2021-06-12] MEDS: clonazePAM 0.5 MG TABLET PO (20:36)
[2021-06-12] MEDS: traZODone HCL 50 MG TABLET PO (20:37)
[2021-06-12] MEDS: QUEtiapine Fumarate 100 MG TABLET PO (20:37)
--- NOTE | 2021-06-12 21:12 | HO.PSYCHPN ---
Subjective Subjective Date of Service: 07/13/21 Reason For Visit: depression,SI Subjective Notes: Conditional Voluntary Interim History: Patient depressed anxious ruminating worried about discharge complains of some difficulty with intermittent blood vision but has been tolerating it nortriptyline was lowered Medication Compliance: Yes Mental Status Exam Mental Status Exam Patient Appearance: Well Grooomed Patient Orientation: Person Level of Consciousness: Awake Patient Behavior: Cooperative Mood Description: Depressed and Anxious Affect Description: Constricted and Anxious Patient Cognition Impaired: No Ability to Follow Directions: Good Speech Pattern: Clear Hallucinations: None Delusions: Not Present Thought Process: Intact Thought Content: negative for Suicidal Ideation or negative for Homicidal Ideation Depressive Symptoms: Increased Anxiety Judgement: Fair Diagnostics Vital Signs (24Hr): Vital Signs - 24 hr 06/12/21 08:00 06/12/21 18:00 Temperature 97.9 F 97.9 F Pulse Rate 109 H 109 H Respiratory Rate 14 18 Blood Pressure 136/88 123/76 Pulse Oximetry 96 98 BMI result Body Mass Index 23.5 Labs Results: 05/13/21 07:03 06/08/21 06:57 Imaging Radiology Impressions: ITS Impressions Head CT 05/20/21 10:13 IMPRESSION: No acute intracranial pathology. Mild chronic volume loss with small vessel ischemic change. Medications Medications Current Medications Acetaminophen (Acetaminophen 325 Mg Tablet) 650 mg PO Q6H PRN PRN Reason: Headache/Pain Mild Scale (1-3) Al Hydroxide/Mg Hydroxide (Magnesium Hydrox/Alum Hydrox 30 Ml Oral.Susp) 30 ml PO Q6H PRN PRN Reason: Heartburn/Nausea Last Admin: 06/03/21 15:55 Dose: 30 ml Documented by: Clonazepam (Clonazepam 0.5 Mg Tablet) 0.5 mg PO BEDTIME [facility] Last Admin: 06/12/21 20:36 Dose: 0.5 mg Documented by: Docusate Sodium (Docusate Sodium 100 Mg Capsule) 100 mg PO BEDTIME [facility] Last Admin: 06/12/21 20:36 Dose: 100 mg Documented by: Magnesium Hydroxide (Milk Of Magnesia 30 Ml Oral.Susp) 30 ml PO DAILY PRN PRN Reason: Constipation Multivitamins/Vitamin C (Multivitamin Tablet) 1 tab PO DAILY [facility] Last Admin: 06/12/21 08:31 Dose: 1 tab Documented by: Patient Own Med (Terazosin 5) 1 each PO DAILY@1830 [facility] Last Admin: 06/12/21 18:19 Dose: 1 each Documented by: Nortriptyline HCl (Nortriptyline Hcl 10 Mg Capsule) 60 mg PO BEDTIME [facility] Last Admin: 06/12/21 20:36 Dose: 60 mg Documented by: Psyllium Hydrophilic Mucilloid (Psyllium Seed 3.4 Gm Powd.Pack) 3.4 gm PO DAILY [facility] Last Admin: 06/12/21 08:32 Dose: 3.4 gm Documented by: Quetiapine Fumarate (Quetiapine Fumarate 100 Mg Tablet) 100 mg PO BEDTIME [facility] Last Admin: 06/12/21 20:37 Dose: 100 mg Documented by: Quetiapine Fumarate (Quetiapine Fumarate 25 Mg Tablet) 12.5 mg PO Q6H PRN PRN Reason: anxiety/restlessness Senna (Senna [place] Extract Oral Syrup 15 Ml Syrup) 7.5 ml PO BEDTIME [facility] Last Admin: 06/12/21 20:40 Dose: 7.5 ml Documented by: Trazodone HCl (Trazodone Hcl 50 Mg Tablet) 50 mg PO BEDTIME PRN PRN Reason: Insomnia Last Admin: 06/12/21 20:37 Dose: 50 mg Documented by: Allergies Allergies Allergy/AdvReac Type Severity Reaction Status Date / Time No Known Allergies Allergy Verified 05/10/21 08:40 Assessment & Plan Assessment & Plan (1) MDD (major depressive disorder), recurrent severe, without psychosis: Status: Acute Code(s): F33.2 - Major depressive disorder, recurrent severe without psychotic features Assessment and Plan: The patient is an elderly male with a long history of anxiety and depression that worsened in the last months due to noncompliance to Lexapro. The patient stop Lexapro due to side effects. The patient has active suicidal ideation he needs inpatient level of care at this moment. Plan 1. Gather collateral information. 2. Continue Seroquel 100 mg p.o. q.h.s. to target insomnia and mood lability. 3. Lower Pamelor up to 60 mg p.o. q.h.s. to target depression and insomnia on 06/09 4. New Pamelor level for next Monday, his level is 100 mcg/dL 5. We will discharge to an [facility], family is looking for a suitable placement. At this moment, we are waiting for placement. Next Monday he will be checked by this facility. 6. COVID negative at this moment 06/12/2021 Patient seen in psychiatric follow-up case reviewed with nursing staff chart reviewed. The patient generally doing better with nortriptyline he is on hydroxyzine p.r.n. for anxiety but this may be contributing to dry eyes. Stop hydroxyzine continue Seroquel 12.5 mg every 4 hours as needed for anxiety I spent minutes with the patient and/or on the patient floor today, greater than?50% of which was spent counseling/coordinating care. Reason for contiued inpatient stay Substantial Risk for: inability to function and rapid decompensation
[2021-06-13] MEDS: QUEtiapine Fumarate 25 MG TABLET 12.5 MG PO (00:05)
--- NOTE | 2021-06-13 08:00 | ECG_ITS ---
Test Reason : on pysch meds Blood Pressure : / mmHG Vent. Rate : 113 BPM Atrial Rate : 113 BPM P-R Int : 170 ms QRS Dur : 082 ms QT Int : 318 ms P-R-T Axes : 041 -17 016 degrees QTc Int : 436 ms Sinus tachycardia with Premature atrial complexes Minimal voltage criteria for LVH, may be normal variant ( R in aVL ) Borderline ECG When compared with ECG of 24-MAY-2021 09:36, Premature atrial complexes are now Present Referred By: Gavino Campbell Electronically Signed By:ASHER FERMIN MD
[2021-06-13] MEDS: Multivitamin TABLET 1 TAB PO (08:08)
[2021-06-13 08:11] VITALS: BP 133/96; PULSE 85; TEMP 36.3; O2SAT 85
--- NOTE | 2021-06-13 14:17 | PC.NURSE ---
Patient is perseverating on medicatons, discharge and continues to deny sleep although staff observes him sleeping throughout the night. Patient is repeatedly asking staff to explain med list to him. He is focused on the fact that he believes he is supposed to be on Ambien for sleep even though Dr. Campbell told him otherwise. Patient states, I don't know what you people are doing for me anyway. Presents with irritated demeanor. When asked if he was enjoying lunch patient replied, well I have to eat something. Appetite is excellent. Patient consumes 100% of meals. Attending to ADL's. Neatly groomed. Compliant with medications. Toileting independently. Ambulates with a strong and steady gait. Patient spends time between common area and reading in his room. Due to low census interaction with peers is minimal.
[2021-06-13 19:29] VITALS: BP 152/95; PULSE 97; RESP 18; TEMP 36.9; O2SAT 96
[2021-06-13] MEDS: Docusate Sodium 100 MG CAPSULE PO (21:24)
[2021-06-13] MEDS: Nortriptyline HCl 10 MG CAPSULE 60 MG PO (21:24)
[2021-06-13] MEDS: QUEtiapine Fumarate 100 MG TABLET PO (21:26)
--- NOTE | 2021-06-13 21:31 | HO.PSYCHPN ---
Subjective Subjective Date of Service: 06/13/21 Reason For Visit: depression,SI Subjective Notes: Conditional Voluntary Interim History: Patient continues with anxiety complains of insomnia. In urged to discuss concerns regarding discharge a sure that things will be set up prior to discharge Medication Compliance: Yes Mental Status Exam Mental Status Exam Patient Appearance: Well Grooomed Patient Orientation: Person Level of Consciousness: Awake Patient Behavior: Cooperative Mood Description: Depressed and Anxious Affect Description: Constricted and Anxious Patient Cognition Impaired: No Ability to Follow Directions: Good Speech Pattern: Clear Hallucinations: None Delusions: Not Present Thought Process: Intact Thought Content: negative for Suicidal Ideation or negative for Homicidal Ideation Depressive Symptoms: Increased Anxiety Judgement: Fair Diagnostics Vital Signs (24Hr): Vital Signs - 24 hr 06/13/21 08:11 06/13/21 19:29 Temperature 97.3 F 98.4 F Pulse Rate 85 97 Respiratory Rate 18 Blood Pressure 133/96 H 152/95 H Pulse Oximetry 85 L 96 BMI result Body Mass Index 23.5 Labs Results: 05/13/21 07:03 06/08/21 06:57 Imaging Radiology Impressions: ITS Impressions Head CT 05/20/21 10:13 IMPRESSION: No acute intracranial pathology. Mild chronic volume loss with small vessel ischemic change. Medications Medications Current Medications Acetaminophen (Acetaminophen 325 Mg Tablet) 650 mg PO Q6H PRN PRN Reason: Headache/Pain Mild Scale (1-3) Al Hydroxide/Mg Hydroxide (Magnesium Hydrox/Alum Hydrox 30 Ml Oral.Susp) 30 ml PO Q6H PRN PRN Reason: Heartburn/Nausea Last Admin: 06/03/21 15:55 Dose: 30 ml Documented by: Docusate Sodium (Docusate Sodium 100 Mg Capsule) 100 mg PO BEDTIME [facility] Last Admin: 06/13/21 21:24 Dose: 100 mg Documented by: Magnesium Hydroxide (Milk Of Magnesia 30 Ml Oral.Susp) 30 ml PO DAILY PRN PRN Reason: Constipation Multivitamins/Vitamin C (Multivitamin Tablet) 1 tab PO DAILY [facility] Last Admin: 06/13/21 08:08 Dose: 1 tab Documented by: Patient Own Med (Terazosin 5) 1 each PO DAILY@1830 [facility] Last Admin: 06/13/21 18:35 Dose: 1 each Documented by: Nortriptyline HCl (Nortriptyline Hcl 10 Mg Capsule) 60 mg PO BEDTIME [facility] Last Admin: 06/13/21 21:24 Dose: 60 mg Documented by: Psyllium Hydrophilic Mucilloid (Psyllium Seed 3.4 Gm Powd.Pack) 3.4 gm PO DAILY [facility] Last Admin: 06/13/21 08:09 Dose: 3.4 gm Documented by: Quetiapine Fumarate (Quetiapine Fumarate 100 Mg Tablet) 100 mg PO BEDTIME [facility] Last Admin: 06/13/21 21:26 Dose: 100 mg Documented by: Quetiapine Fumarate (Quetiapine Fumarate 25 Mg Tablet) 12.5 mg PO Q6H PRN PRN Reason: anxiety/restlessness Last Admin: 06/13/21 00:05 Dose: 12.5 mg Documented by: Senna (Senna [place] Extract Oral Syrup 15 Ml Syrup) 7.5 ml PO BEDTIME [facility] Last Admin: 06/13/21 21:26 Dose: 7.5 ml Documented by: Trazodone HCl (Trazodone Hcl 50 Mg Tablet) 50 mg PO BEDTIME PRN PRN Reason: Insomnia Last Admin: 06/12/21 20:37 Dose: 50 mg Documented by: Allergies Allergies Allergy/AdvReac Type Severity Reaction Status Date / Time No Known Allergies Allergy Verified 05/10/21 08:40 Assessment & Plan Assessment & Plan (1) MDD (major depressive disorder), recurrent severe, without psychosis: Status: Acute Code(s): F33.2 - Major depressive disorder, recurrent severe without psychotic features Assessment and Plan: The patient is an elderly male with a long history of anxiety and depression that worsened in the last months due to noncompliance to Lexapro. The patient stop Lexapro due to side effects. The patient has active suicidal ideation he needs inpatient level of care at this moment. Plan 1. Gather collateral information. 2. Continue Seroquel 100 mg p.o. q.h.s. to target insomnia and mood lability. 3. Lower Pamelor up to 60 mg p.o. q.h.s. to target depression and insomnia on 06/09 4. New Pamelor level for next Monday, his level is 100 mcg/dL 5. We will discharge to an [facility], family is looking for a suitable placement. At this moment, we are waiting for placement. Next Monday he will be checked by this facility. 6. COVID negative at this moment 06/12/2021 Patient seen in psychiatric follow-up case reviewed with nursing staff chart reviewed. The patient generally doing better with nortriptyline he is on hydroxyzine p.r.n. for anxiety but this may be contributing to dry eyes. Stop hydroxyzine continue Seroquel 12.5 mg every 4 hours as needed for anxiety Note for 07-03 Patient generally stable continues anxiety about discharge. Encourage low-dose Seroquel for anxiety I spent minutes with the patient and/or on the patient floor today, greater than?50% of which was spent counseling/coordinating care. Reason for contiued inpatient stay Substantial Risk for: harm to self and rapid decompensation
[2021-06-14 06:00] VITALS: BP 172/85; PULSE 98; RESP 14; TEMP 36.4; O2SAT 95
[2021-06-14] MEDS: Multivitamin TABLET 1 TAB PO (08:23)
[2021-06-14 10:22] LABS: COVID-19 Test Negative (Negative); IDNOW Serial# 08D9AD1C
--- NOTE | 2021-06-14 16:33 | HO.PSYCHPN ---
Subjective Subjective Date of Service: 06/14/21 Reason For Visit: depression,SI Subjective Notes: Conditional Voluntary Interim History: The nursing staff reported the patient is fully compliant with treatment. On interview, he reports that he is anxious at times but his dysphoria has improved. No evidence of side effects. Mental Status Exam Mental Status Exam Patient Appearance: Well Grooomed Patient Orientation: Person Level of Consciousness: Awake Patient Behavior: Cooperative Mood Description: Depressed Affect Description: Constricted Patient Cognition Impaired: No Ability to Follow Directions: Good Speech Pattern: Clear Memory Description: Intact Delusions: Not Present Thought Process: Linear Thought Content: positive for Circumstantial Depressive Symptoms: Difficulty Sleeping Judgement: Fair Diagnostics Vital Signs (24Hr): Vital Signs - 24 hr 06/13/21 19:29 06/14/21 06:00 Temperature 98.4 F 97.6 F Pulse Rate 97 98 Respiratory Rate 18 14 Blood Pressure 152/95 H 172/85 H Pulse Oximetry 96 95 BMI result Body Mass Index 23.5 Labs Results: 05/13/21 07:03 06/08/21 06:57 Labs: Laboratory Results - last 48 hr 06/14/21 09:55 COVID-19 ([facility]) Negative COVID-19 Clin Com See Note Imaging Radiology Impressions: ITS Impressions Head CT 05/20/21 10:13 IMPRESSION: No acute intracranial pathology. Mild chronic volume loss with small vessel ischemic change. Medications Medications Current Medications Acetaminophen (Acetaminophen 325 Mg Tablet) 650 mg PO Q6H PRN PRN Reason: Headache/Pain Mild Scale (1-3) Al Hydroxide/Mg Hydroxide (Magnesium Hydrox/Alum Hydrox 30 Ml Oral.Susp) 30 ml PO Q6H PRN PRN Reason: Heartburn/Nausea Last Admin: 06/03/21 15:55 Dose: 30 ml Documented by: Docusate Sodium (Docusate Sodium 100 Mg Capsule) 100 mg PO BEDTIME [facility] Last Admin: 06/13/21 21:24 Dose: 100 mg Documented by: Magnesium Hydroxide (Milk Of Magnesia 30 Ml Oral.Susp) 30 ml PO DAILY PRN PRN Reason: Constipation Multivitamins/Vitamin C (Multivitamin Tablet) 1 tab PO DAILY [facility] Last Admin: 06/14/21 08:23 Dose: 1 tab Documented by: Patient Own Med (Terazosin 5) 1 each PO DAILY@1830 [facility] Last Admin: 06/13/21 18:35 Dose: 1 each Documented by: Nortriptyline HCl (Nortriptyline Hcl 10 Mg Capsule) 60 mg PO BEDTIME [facility] Last Admin: 06/13/21 21:24 Dose: 60 mg Documented by: Psyllium Hydrophilic Mucilloid (Psyllium Seed 3.4 Gm Powd.Pack) 3.4 gm PO DAILY [facility] Last Admin: 06/14/21 08:23 Dose: 3.4 gm Documented by: Quetiapine Fumarate (Quetiapine Fumarate 100 Mg Tablet) 100 mg PO BEDTIME [facility] Last Admin: 06/13/21 21:26 Dose: 100 mg Documented by: Quetiapine Fumarate (Quetiapine Fumarate 25 Mg Tablet) 12.5 mg PO Q6H PRN PRN Reason: anxiety/restlessness Last Admin: 06/13/21 00:05 Dose: 12.5 mg Documented by: Senna (Senna [place] Extract Oral Syrup 15 Ml Syrup) 7.5 ml PO BEDTIME [facility] Last Admin: 06/13/21 21:26 Dose: 7.5 ml Documented by: Trazodone HCl (Trazodone Hcl 50 Mg Tablet) 50 mg PO BEDTIME PRN PRN Reason: Insomnia Last Admin: 06/12/21 20:37 Dose: 50 mg Documented by: Allergies Allergies Allergy/AdvReac Type Severity Reaction Status Date / Time No Known Allergies Allergy Verified 05/10/21 08:40 Assessment & Plan Assessment & Plan (1) MDD (major depressive disorder), recurrent severe, without psychosis: Status: Acute Code(s): F33.2 - Major depressive disorder, recurrent severe without psychotic features Assessment and Plan: The patient is an elderly male with a long history of anxiety and depression that worsened in the last months due to noncompliance to Lexapro. The patient stop Lexapro due to side effects. The patient has active suicidal ideation he needs inpatient level of care at this moment. Plan 1. Gather collateral information. 2. Continue Seroquel 100 mg p.o. q.h.s. to target insomnia and mood lability. 3. Lower Pamelor up to 60 mg p.o. q.h.s. to target depression and insomnia on 06/09 4. New Pamelor level for next Monday, his level is 100 mcg/dL 5. We will discharge to an [facility], family is looking for a suitable placement. At this moment, we are waiting for placement. Next Monday he will be checked by this facility. 6. COVID negative at this moment I spent minutes with the patient and/or on the patient floor today, greater than?50% of which was spent counseling/coordinating care. Reason for contiued inpatient stay Substantial Risk for: inability to function, rapid decompensation and med/psych decompensation
[2021-06-14] MEDS: QUEtiapine Fumarate 25 MG TABLET 12.5 MG PO (17:00)
[2021-06-14 19:52] VITALS: BP 147/97; PULSE 100; RESP 8; TEMP 37.3; O2SAT 94
[2021-06-14] MEDS: Docusate Sodium 100 MG CAPSULE PO (21:09)
[2021-06-14] MEDS: Nortriptyline HCl 10 MG CAPSULE 60 MG PO (21:09)
[2021-06-14] MEDS: QUEtiapine Fumarate 100 MG TABLET PO (21:09)
[2021-06-15] MEDS: traZODone HCL 50 MG TABLET PO (00:50)
[2021-06-15 06:00] VITALS: BP 158/98; PULSE 130; RESP 16; TEMP 36.2; O2SAT 95
[2021-06-15] MEDS: Multivitamin TABLET 1 TAB PO (11:05)
--- NOTE | 2021-06-15 13:27 | P.PNPSI_ITS ---
Subjective Subjective Date of Service: 06/15/21 Reason For Visit: depression,SI Subjective Notes: Conditional Voluntary Interim History: The nursing staff reported the patient has been fully compliant with treatment. On interview, the patient reports some anxiety and dysphoria sporadic poor sleep. Will have a family meeting tomorrow and will discuss proper discharge planning Mental Status Exam Mental Status Exam Patient Appearance: Well Grooomed Patient Orientation: Person Level of Consciousness: Awake and Alert Patient Behavior: Cooperative Mood Description: Constricted Patient Cognition Impaired: No Ability to Follow Directions: Good Speech Pattern: Clear Hallucinations: None Delusions: Not Present Thought Process: Linear Thought Content: positive for Circumstantial Depressive Symptoms: Difficulty Sleeping and Changes in Appetite Judgement: Fair Diagnostics Vital Signs (24Hr): Vital Signs - 24 hr 06/14/21 19:52 06/15/21 06:00 Temperature 99.1 F 97.1 F Pulse Rate 100 130 H Respiratory Rate 8 L 16 Blood Pressure 147/97 H 158/98 H Pulse Oximetry 94 95 BMI result Body Mass Index 23.5 Labs Results: 05/13/21 07:03 06/08/21 06:57 Labs: Laboratory Results - last 48 hr 06/14/21 09:55 COVID-19 ([facility]) Negative COVID-19 Clin Com See Note Imaging Radiology Impressions: ITS Impressions Head CT 05/20/21 10:13 IMPRESSION: No acute intracranial pathology. Mild chronic volume loss with small vessel ischemic change. Medications Medications Current Medications Acetaminophen (Acetaminophen 325 Mg Tablet) 650 mg PO Q6H PRN PRN Reason: Headache/Pain Mild Scale (1-3) Al Hydroxide/Mg Hydroxide (Magnesium Hydrox/Alum Hydrox 30 Ml Oral.Susp) 30 ml PO Q6H PRN PRN Reason: Heartburn/Nausea Last Admin: 06/03/21 15:55 Dose: 30 ml Documented by: Docusate Sodium (Docusate Sodium 100 Mg Capsule) 100 mg PO BEDTIME [facility] Last Admin: 06/14/21 21:09 Dose: 100 mg Documented by: Magnesium Hydroxide (Milk Of Magnesia 30 Ml Oral.Susp) 30 ml PO DAILY PRN PRN Reason: Constipation Multivitamins/Vitamin C (Multivitamin Tablet) 1 tab PO DAILY [facility] Last Admin: 06/15/21 11:05 Dose: 1 tab Documented by: Patient Own Med (Terazosin 5) 1 each PO DAILY@1830 [facility] Last Admin: 06/14/21 18:39 Dose: 1 each Documented by: Nortriptyline HCl (Nortriptyline Hcl 10 Mg Capsule) 60 mg PO BEDTIME [facility] Last Admin: 06/14/21 21:09 Dose: 60 mg Documented by: Psyllium Hydrophilic Mucilloid (Psyllium Seed 3.4 Gm Powd.Pack) 3.4 gm PO DAILY [facility] Last Admin: 06/15/21 11:05 Dose: 3.4 gm Documented by: Quetiapine Fumarate (Quetiapine Fumarate 100 Mg Tablet) 100 mg PO BEDTIME [facility] Last Admin: 06/14/21 21:09 Dose: 100 mg Documented by: Quetiapine Fumarate (Quetiapine Fumarate 25 Mg Tablet) 12.5 mg PO Q6H PRN PRN Reason: anxiety/restlessness Last Admin: 06/14/21 17:00 Dose: 12.5 mg Documented by: Senna (Senna [place] Extract Oral Syrup 15 Ml Syrup) 7.5 ml PO BEDTIME [facility] Last Admin: 06/14/21 21:09 Dose: 7.5 ml Documented by: Trazodone HCl (Trazodone Hcl 50 Mg Tablet) 50 mg PO BEDTIME PRN PRN Reason: Insomnia Last Admin: 06/15/21 00:50 Dose: 50 mg Documented by: Allergies Allergies Allergy/AdvReac Type Severity Reaction Status Date / Time No Known Allergies Allergy Verified 05/10/21 08:40 Assessment & Plan Assessment & Plan (1) MDD (major depressive disorder), recurrent severe, without psychosis: Status: Acute Code(s): F33.2 - Major depressive disorder, recurrent severe without psychotic features Assessment and Plan: The patient is an elderly male with a long history of anxiety and depression that worsened in the last months due to noncompliance to Lexapro. The patient stop Lexapro due to side effects. The patient has active suicidal ideation he needs inpatient level of care at this moment. Plan 1. Gather collateral information. 2. Continue Seroquel 100 mg p.o. q.h.s. to target insomnia and mood lability. 3. Lower Pamelor up to 60 mg p.o. q.h.s. to target depression and insomnia on 06/09 4. New Pamelor level for next Monday, his level is 100 mcg/dL 5. We will discharge to an [facility], family is looking for a suitable placement. At this moment, we are waiting for placement. Next Monday he will be checked by this facility. 6. COVID negative at this moment I spent minutes with the patient and/or on the patient floor today, greater than?50% of which was spent counseling/coordinating care. Reason for contiued inpatient stay Substantial Risk for: harm to self, inability to function, rapid decompensation and med/psych decompensation
[2021-06-15 20:06] VITALS: BP 126/73; PULSE 105; RESP 19; TEMP 37.4; O2SAT 98
[2021-06-15] MEDS: Nortriptyline HCl 10 MG CAPSULE 60 MG PO (21:03)
[2021-06-15] MEDS: QUEtiapine Fumarate 100 MG TABLET PO (21:03)
[2021-06-15] MEDS: Docusate Sodium 100 MG CAPSULE PO (21:03)
[2021-06-16 08:00] VITALS: BP 147/89; PULSE 102; TEMP 35.5; O2SAT 97
[2021-06-16] MEDS: Multivitamin TABLET 1 TAB PO (08:12)
--- NOTE | 2021-06-16 13:48 | HO.PSYCHPN ---
Subjective Subjective Date of Service: 06/16/21 Reason For Visit: depression,SI Subjective Notes: Conditional Voluntary Interim History: The nursing staff reported good appetite, slept well, able to cope with the restrictions of COVID-19 in the unit. On interview, he was anxious for the discharge this week but no evidence of suicidal thoughts. We had a family meeting with his family. Mental Status Exam Mental Status Exam Patient Appearance: Well Grooomed Patient Orientation: Person Level of Consciousness: Awake Patient Behavior: Cooperative Mood Description: Depressed Affect Description: Constricted Ability to Follow Directions: Good Speech Pattern: Clear Memory Description: Intact Hallucinations: None Delusions: Not Present Thought Process: Intact and Linear Thought Content: positive for Circumstantial Judgement: Fair Diagnostics Vital Signs (24Hr): Vital Signs - 24 hr 06/15/21 20:06 06/16/21 08:00 Temperature 99.3 F 96 F L Pulse Rate 105 H 102 H Respiratory Rate 19 Blood Pressure 126/73 147/89 H Pulse Oximetry 98 97 BMI result Body Mass Index 23.5 Labs Results: 05/13/21 07:03 06/08/21 06:57 Imaging Radiology Impressions: ITS Impressions Head CT 05/20/21 10:13 IMPRESSION: No acute intracranial pathology. Mild chronic volume loss with small vessel ischemic change. Medications Medications Current Medications Acetaminophen (Acetaminophen 325 Mg Tablet) 650 mg PO Q6H PRN PRN Reason: Headache/Pain Mild Scale (1-3) Al Hydroxide/Mg Hydroxide (Magnesium Hydrox/Alum Hydrox 30 Ml Oral.Susp) 30 ml PO Q6H PRN PRN Reason: Heartburn/Nausea Last Admin: 06/03/21 15:55 Dose: 30 ml Documented by: Docusate Sodium (Docusate Sodium 100 Mg Capsule) 100 mg PO BEDTIME [facility] Last Admin: 06/15/21 21:03 Dose: 100 mg Documented by: Magnesium Hydroxide (Milk Of Magnesia 30 Ml Oral.Susp) 30 ml PO DAILY PRN PRN Reason: Constipation Multivitamins/Vitamin C (Multivitamin Tablet) 1 tab PO DAILY [facility] Last Admin: 06/16/21 08:12 Dose: 1 tab Documented by: Patient Own Med (Terazosin 5) 1 each PO DAILY@1830 [facility] Last Admin: 06/15/21 18:52 Dose: 1 each Documented by: Nortriptyline HCl (Nortriptyline Hcl 10 Mg Capsule) 60 mg PO BEDTIME [facility] Last Admin: 06/15/21 21:03 Dose: 60 mg Documented by: Psyllium Hydrophilic Mucilloid (Psyllium Seed 3.4 Gm Powd.Pack) 3.4 gm PO DAILY [facility] Last Admin: 06/16/21 08:12 Dose: 3.4 gm Documented by: Quetiapine Fumarate (Quetiapine Fumarate 100 Mg Tablet) 100 mg PO BEDTIME [facility] Last Admin: 06/15/21 21:03 Dose: 100 mg Documented by: Quetiapine Fumarate (Quetiapine Fumarate 25 Mg Tablet) 12.5 mg PO Q6H PRN PRN Reason: anxiety/restlessness Last Admin: 06/14/21 17:00 Dose: 12.5 mg Documented by: Senna (Senna [place] Extract Oral Syrup 15 Ml Syrup) 7.5 ml PO BEDTIME [facility] Last Admin: 06/15/21 21:04 Dose: 7.5 ml Documented by: Trazodone HCl (Trazodone Hcl 50 Mg Tablet) 50 mg PO BEDTIME PRN PRN Reason: Insomnia Last Admin: 06/15/21 00:50 Dose: 50 mg Documented by: Allergies Allergies Allergy/AdvReac Type Severity Reaction Status Date / Time No Known Allergies Allergy Verified 05/10/21 08:40 Assessment & Plan Assessment & Plan (1) MDD (major depressive disorder), recurrent severe, without psychosis: Status: Acute Code(s): F33.2 - Major depressive disorder, recurrent severe without psychotic features Assessment and Plan: The patient is an elderly male with a long history of anxiety and depression that worsened in the last months due to noncompliance to Lexapro. The patient stop Lexapro due to side effects. The patient has active suicidal ideation he needs inpatient level of care at this moment. Plan 1. Gather collateral information. 2. Continue Seroquel 100 mg p.o. q.h.s. to target insomnia and mood lability. 3. Lower Pamelor up to 60 mg p.o. q.h.s. to target depression and insomnia on 06/09 4. New Pamelor level for next Monday, his level is 100 mcg/dL 5. We will discharge to an [facility], family is looking for a suitable placement. At this moment, we are waiting for placement. Next Monday he will be checked by this facility. 6. COVID negative at this moment I spent minutes with the patient and/or on the patient floor today, greater than?50% of which was spent counseling/coordinating care. Reason for contiued inpatient stay Substantial Risk for: harm to self, inability to function, rapid decompensation and med/psych decompensation
[2021-06-16 18:00] VITALS: BP 140/85; PULSE 99; RESP 18; TEMP 36.8; O2SAT 98
[2021-06-16] MEDS: Docusate Sodium 100 MG CAPSULE PO (20:25)
[2021-06-16] MEDS: Nortriptyline HCl 10 MG CAPSULE 60 MG PO (20:25)
[2021-06-16] MEDS: QUEtiapine Fumarate 100 MG TABLET PO (20:25)
[2021-06-16] MEDS: traZODone HCL 50 MG TABLET PO (23:30)
[2021-06-17 07:00] VITALS: BMI 23.6
[2021-06-17 08:00] VITALS: BP 135/76; PULSE 100; RESP 18; TEMP 36.8; O2SAT 95
[2021-06-17] MEDS: Multivitamin TABLET 1 TAB PO (08:07)
[2021-06-17 09:52] LABS: COVID-19 Test Invalid (Negative)
[2021-06-17] MEDS: QUEtiapine Fumarate 25 MG TABLET 12.5 MG PO (10:40)
[2021-06-17 10:54] LABS: COVID-19 Test Negative (Negative)
--- NOTE | 2021-06-17 12:56 | HO.PSYCHPN ---
Subjective Subjective Date of Service: 06/17/21 Reason For Visit: depression,SI Subjective Notes: Conditional Voluntary Interim History: The patient reported that he feels very anxious for his discharge tomorrow. He has used PRN Seroquel with good response. On interview, he was pleasant and cooperative, no acitve suicidal ideation. Mental Status Exam Mental Status Exam Patient Appearance: Well Grooomed Patient Orientation: Person Level of Consciousness: Awake Patient Behavior: Cooperative Mood Description: Depressed Affect Description: Constricted Patient Cognition Impaired: No Ability to Follow Directions: Good Speech Pattern: Clear Memory Description: Intact Hallucinations: None Delusions: Not Present Thought Process: Linear Thought Content: positive for Circumstantial Depressive Symptoms: Increased Anxiety and Insomnia Judgement: Fair Diagnostics Vital Signs (24Hr): Vital Signs - 24 hr 06/16/21 18:00 06/17/21 08:00 Temperature 98.2 F 98.3 F Pulse Rate 99 100 Respiratory Rate 18 18 Blood Pressure 140/85 H 135/76 Pulse Oximetry 98 95 BMI result Body Mass Index 23.6 Labs Results: 05/13/21 07:03 06/08/21 06:57 Labs: Laboratory Results - last 48 hr 06/17/21 06/17/21 09:00 10:00 COVID-19 ([facility]) Invalid Negative COVID-19 Clin Com See Note See Note Imaging Radiology Impressions: ITS Impressions Head CT 05/20/21 10:13 IMPRESSION: No acute intracranial pathology. Mild chronic volume loss with small vessel ischemic change. Medications Medications Current Medications Acetaminophen (Acetaminophen 325 Mg Tablet) 650 mg PO Q6H PRN PRN Reason: Headache/Pain Mild Scale (1-3) Al Hydroxide/Mg Hydroxide (Magnesium Hydrox/Alum Hydrox 30 Ml Oral.Susp) 30 ml PO Q6H PRN PRN Reason: Heartburn/Nausea Last Admin: 06/03/21 15:55 Dose: 30 ml Documented by: Docusate Sodium (Docusate Sodium 100 Mg Capsule) 100 mg PO BEDTIME [facility] Last Admin: 06/16/21 20:25 Dose: 100 mg Documented by: Magnesium Hydroxide (Milk Of Magnesia 30 Ml Oral.Susp) 30 ml PO DAILY PRN PRN Reason: Constipation Multivitamins/Vitamin C (Multivitamin Tablet) 1 tab PO DAILY [facility] Last Admin: 06/17/21 08:07 Dose: 1 tab Documented by: Patient Own Med (Terazosin 5) 1 each PO DAILY@1830 [facility] Last Admin: 06/16/21 18:11 Dose: 1 each Documented by: Nortriptyline HCl (Nortriptyline Hcl 10 Mg Capsule) 60 mg PO BEDTIME [facility] Last Admin: 06/16/21 20:25 Dose: 60 mg Documented by: Psyllium Hydrophilic Mucilloid (Psyllium Seed 3.4 Gm Powd.Pack) 3.4 gm PO DAILY [facility] Last Admin: 06/17/21 08:07 Dose: 3.4 gm Documented by: Quetiapine Fumarate (Quetiapine Fumarate 100 Mg Tablet) 100 mg PO BEDTIME [facility] Last Admin: 06/16/21 20:25 Dose: 100 mg Documented by: Quetiapine Fumarate (Quetiapine Fumarate 25 Mg Tablet) 12.5 mg PO Q6H PRN PRN Reason: anxiety/restlessness Last Admin: 06/17/21 10:40 Dose: 12.5 mg Documented by: Senna (Senna [place] Extract Oral Syrup 15 Ml Syrup) 7.5 ml PO BEDTIME [facility] Last Admin: 06/16/21 20:24 Dose: 7.5 ml Documented by: Trazodone HCl (Trazodone Hcl 50 Mg Tablet) 50 mg PO BEDTIME PRN PRN Reason: Insomnia Last Admin: 06/16/21 23:30 Dose: 50 mg Documented by: Allergies Allergies Allergy/AdvReac Type Severity Reaction Status Date / Time No Known Allergies Allergy Verified 05/10/21 08:40 Assessment & Plan Assessment & Plan (1) MDD (major depressive disorder), recurrent severe, without psychosis: Status: Acute Code(s): F33.2 - Major depressive disorder, recurrent severe without psychotic features Assessment and Plan: The patient is an elderly male with a long history of anxiety and depression that worsened in the last months due to noncompliance to Lexapro. The patient stop Lexapro due to side effects. The patient has active suicidal ideation he needs inpatient level of care at this moment. Plan 1. Gather collateral information. 2. Continue Seroquel 100 mg p.o. q.h.s. to target insomnia and mood lability. 3. Lower Pamelor up to 60 mg p.o. q.h.s. to target depression and insomnia on 06/09 4. New Pamelor level for next Monday, his level is 100 mcg/dL 5. We will discharge to an [facility], family is looking for a suitable placement. At this moment, we are waiting for placement. Next Monday he will be checked by this facility. 6. COVID negative at this moment, tested again and negative. I spent minutes with the patient and/or on the patient floor today, greater than?50% of which was spent counseling/coordinating care. Reason for contiued inpatient stay Substantial Risk for: harm to self, inability to function, rapid decompensation and med/psych decompensation
[2021-06-17 19:40] VITALS: BP 147/83; PULSE 96; RESP 18; TEMP 36.9; O2SAT 97
[2021-06-17] MEDS: Docusate Sodium 100 MG CAPSULE PO (20:50)
[2021-06-17] MEDS: Nortriptyline HCl 10 MG CAPSULE 60 MG PO (20:50)
[2021-06-17] MEDS: QUEtiapine Fumarate 100 MG TABLET PO (20:50)
[2021-06-17] MEDS: traZODone HCL 50 MG TABLET PO (23:00)
[2021-06-18] MEDS: QUEtiapine Fumarate 25 MG TABLET 12.5 MG PO (00:38)
[2021-06-18 06:00] VITALS: BP 144/90; PULSE 102; TEMP 36.7; O2SAT 99
[2021-06-18] MEDS: Multivitamin TABLET 1 TAB PO (08:12)
--- NOTE | 2021-06-18 10:52 | PM.PSYDC ---
DS: Providers Provider Date of Service: 06/18/21 Date of admission: 05/12/21 15:55 Date of discharge: 06/18/21 Primary care physician: Sujit Kiser MD Attending physician on discharge: Errol Castro DS: Diagnosis Discharge Diagnosis (1) MDD (major depressive disorder), recurrent severe, without psychosis: Status: Acute DS: Medications Discharge Medications Home Medications: Home Medications Medication Instructions Recorded Confirmed terazosin 5 mg capsule 5 mg PO BEDTIME 05/07/21 05/08/21 trazodone 100 mg tablet 100 mg PO BEDTIME 05/07/21 05/08/21 Previous Rx's Medication Instructions Recorded multivitamin (Daily-Wilfred) 1 tab PO DAILY 30 Days #30 tab 06/16/21 nortriptyline 10 mg capsule 60 mg PO BEDTIME 30 Days #180 cap 06/16/21 quetiapine 100 mg tablet 100 mg PO BEDTIME 30 Days #30 tab 06/16/21 quetiapine 25 mg tablet 12.5 mg PO Q6H PRN 30 Days #30 tab 06/16/21 senna leaf extract 176 mg/5 mL 7.5 ml PO BEDTIME 30 Days #225 ml 06/16/21 oral syrup (senna) trazodone 50 mg tablet 50 mg PO BEDTIME PRN 30 Days #30 06/16/21 tab zolpidem 5 mg tablet (Ambien) 5 mg PO BEDTIME PRN #30 tab 06/16/21 Mental Status Exam Mental Status Exam Patient Appearance: Well Grooomed Patient Orientation: Person, Place and Situation Level of Consciousness: Awake Patient Behavior: Cooperative Mood Description: Constricted Affect Description: Constricted Patient Cognition Impaired: No Ability to Follow Directions: Good Speech Pattern: Clear Memory Description: Intact Hallucinations: None Delusions: Not Present Thought Process: Intact Thought Content: positive for Intact Judgement: Fair Data Data Completed and Pending Completed studies during hospitalization [Text1]: 06/14/21 06/17/21 06/17/21 09:55 09:00 10:00 COVID-19 ([facility]) Negative Invalid Negative COVID-19 Clin Com See Note See Note See Note Imaging Diagnostic Imaging Impressions Head CT 05/20/21 10:13 IMPRESSION: No acute intracranial pathology. Mild chronic volume loss with small vessel ischemic change. DS: Summary Hospital Course Hospital Course: the patient was initially admitted into the psychiatric unit [place] he complained of exacerbation of depressive symptoms with suicidal ideation. He has tried to slashed his wrists a put himself in a but top to commit suicide. Please see HPI on the admission note for further details. On admission, he was able to contract for safety and he was worried about the different options that we have for treatment of depression. Psychoeducation to his condition was provided, treatment options were discussed and we agreed to start a slow titration of nortriptyline to target his depression, anxiety and insomnia. She was able to tolerate up to 75 mg at night but then later he started developing blurry vision so we backed down to 60 mg p.o. q.h.s.. When he was admitted into the hospital, the patient was overwhelmed with the idea of living by himself with limited social support. We discussed several discharge options such as an [facility] and others but unfortunately, a COVID 19 outbreak happened it in the community and the family and the patient decided to postpone the transferred to an [facility]. Ancillary services were provided. The patient's Pamelor and combination of Seroquel and other medications helping with his anxiety and dysphoria, he was future oriented and there were no safety concerns. We had several family meetings with his brother and niece and the social media analyst worked for aftercare. Since there were no safety concerns discharge plan was started Time spent discussing smoking cessation with patient: 3 to 10 minutes Status at Discharge Cognitive/behavioral status at discharge: at baseline Functional status at discharge: independent ambulation Overall status at discharge: patient is back to baseline Time Spent with Patient Time attestation: Total time spent providing and/or coordinating discharge services: Time spent: Less than 30 minutes Discharge Plan Discharge Patient Disposition: Home, Self-Care Discharge Diagnosis: major depressive disorder recurrent episode severe Referrals: DR. Nayana Santiago ([place] PCP) [Other] - 07/19/21 2:00 pm (Appointment scheduled for Monday, July 19, 2021 @ 2 PM in office at [place] [facility]) [place] [facility] [Other] - 07/15/21 2:00 pm (Outpatient initial appointment is for 2 hours to obtain both psychiatrists and therapists. Scheduled for , 07/15/21 @ 2 PM with Neelam Davison social media analyst in office.) [facility] [Other] - 06/30/21 12:45 pm (Appt scheduled for 06/30/21 @ 12:45 TELEHEALTH visit with Rodolfo Ramirez.) [facility] [Other] - 3-5 Days (SW made referral to [facility] today 06/15/21 requesting meals on wheels as well as in home REGULATORY SCIENTIST services. Agency to call [facility] post discharge to schedule in home appointment to discuss services. Please follow up in 3-5 if you have not received a phone call.) Discharge Medications: New multivitamin [Daily-Wilfred] Tablet 1 tab PO DAILY 30 Days Qty: 30 RF: 0 quetiapine 25 mg Tablet 12.5 mg PO Q6H PRN (Reason: Anxiety/Restlessness) 30 Days Qty: 30 RF: 0 trazodone 50 mg Tablet 50 mg PO BEDTIME PRN (Reason: Insomnia) 30 Days Qty: 30 RF: 0 quetiapine 100 mg Tablet 100 mg PO BEDTIME 30 Days Qty: 30 RF: 0 nortriptyline 10 mg Capsule 60 mg PO BEDTIME 30 Days Qty: 180 RF: 0 senna leaf extract [senna] 176 mg/5 mL Syrup 7.5 ml PO BEDTIME 30 Days Qty: 225 RF: 0 zolpidem [Ambien] 5 mg tablet 5 mg PO BEDTIME PRN (Reason: insomnia) Qty: 30 RF: 0 Continued terazosin 5 mg Capsule 5 mg PO BEDTIME RF: 0 Discontinued trazodone 100 mg Tablet 100 mg PO BEDTIME RF: 0 Discharge Orders: Discharge Order (Routine); Ordered 06/18/21 Ordered By: Errol Castro Diet: advance to usual diet Activity on Discharge: As tolerated Stand Alone Forms: Patient Portal Discharge page Care Plan Goals: care plan goals were achieved in the unit. Health Concerns: Follow up with regular primary care physician Plan of Treatment: Continue medication management via [facility] family and counseling. [facility] another ancillary services were referred. Assessment: Elderly male with a long history of depression and anxiety that worsened in the last months due to social isolation due to COVID 19. The patient have a suicidal attempt and he was admitted into this facility for psychiatric stabilization. He was treated with nortriptyline with for improvement and since there were no safety concerns discharge planning was discussed.
== END 2021-06-18 12:15 | disposition home or self-care (01) | DRG 885 ==
LOC: HO.ED 19:01 → HO.PGERI 05-12 16:12
PROVIDERS: Registered Nurse; Social Worker; Admitting Provider Psychiatry & Neurology Psychiatry; Emergency Provider Emergency Medicine; PCP Internal Medicine; Visit Provider Psychiatry & Neurology Psychiatry
DX: F33.2 Major depressive disorder, recurrent severe without psychotic features (principal); R45.851 Suicidal ideations; Z20.822 Contact with and (suspected) exposure to COVID-19; Z87.891 Personal history of nicotine dependence; Z79.899 Other long term (current) drug therapy
CPT/HCPCS: 0241U; 36415; 70450; 80048; 80053; 80061; 80076; 80143; 80179; 80307; 80335; 81003; 82077; 82607; 82746; 83036; 83735; 84439; 84443; 85025; 87635; 90471; 90715; 93005; 99285